=== PATIENT | female | born 1945 | race Caucasian/White ===

== ENCOUNTER 2016-11-14 10:46 | Inpatient (IN) ==
[2016-11-14] MEDS ORDERED: 0.9 % SODIUM CHLORIDE 1,000 ML IV ONE ×2 (10:59→12:29)
--- NOTE | 2016-11-14 11:28 | Emergency Department Note ---
Nausea/Vomiting/Diarrhea HPI - General Chief complaint: Nausea/Vomiting/Diarrhea Stated complaint: Vomiting, diarrhea Time Seen by Provider: 11/14/16 11:09 Source: patient Mode of arrival: wheelchair Limitations: no limitations - History of Present Illness HPI Narrative: This patient has had nausea vomiting and diarrhea for last 9 days. No abdominal pain. Diarrhea is watery without blood or mucus. She does feel thirsty and dehydrated and feels like she is getting confused because of dehydration. MD complaint: nausea, vomiting, diarrhea Onset (ago): day(s) Description of Vomiting: watery Description of Diarrhea: water Associated Abdominal Pain: No Improves with: none Worsens with: none - Related Data Home Medications Medication Instructions Recorded Confirmed Atorvastatin [Lipitor] 40 mg PO ONCE 11/14/16 11/14/16 Cholecalciferol (Vitamin D3) 2,000 unit PO DAILY 11/14/16 11/14/16 [Vitamin D] Docusate Sodium [Stool Softener] 500 mg PO DAILY 11/14/16 11/14/16 Gabapentin [Neurontin] 300 mg PO DAILY 11/14/16 11/14/16 Hydrochlorothiazide [Oretic] 12.5 mg PO DAILY 11/14/16 11/14/16 Lisinopril [Zestril] 10 mg PO DAILY 11/14/16 11/14/16 Magnesium Oxide [Magnesium] 400 mg PO DAILY 11/14/16 11/14/16 Metoprolol Succinate [Toprol Xl] 12.5 mg PO DAILY 11/14/16 11/14/16 Vitamin B Complex [Ultra B-100 1 each PO DAILY 11/14/16 11/14/16 Complex] buPROPion HCL [Wellbutrin Xl] 150 mg PO DAILY 11/14/16 11/14/16 metFORMIN HCL [Glucophage] 500 mg PO BID 11/14/16 11/14/16 Allergies Allergy/AdvReac Type Severity Reaction Status Date / Time No Known Drug Allergies Allergy Unverified 11/14/16 10:54 Review of Systems Constitutional: Denies: fever, chills ENT ED: Denies: ear pain Cardiovascular: Denies: chest pain Respiratory: Denies: cough, dyspnea Gastrointestinal: Reports: nausea, vomiting, diarrhea. Denies: abdominal pain, constipation, hematemesis, melena, hematochezia Genitourinary: Denies: urgency Musculoskeletal: Denies: back pain Integumentary: Denies: rash Neurological: Denies: headache Past Medical History - Past Medical History Medical history: Reports: diabetes, hyperlipidemia, hypertension Surgical history ED: Reports: hysterectomy Physical Exam - General Limitations: no limitations General appearance: alert - Head Head exam: atraumatic - Eye Eye exam: Present: normal appearance - ENT ENT exam: mucous membranes dry - Neck Neck exam: Present: normal inspection - Chest Chest inspection: Present: normal inspection - Respiratory Respiratory exam: Present: normal lung sounds bilaterally. Absent: respiratory distress, wheezes - Cardiovascular Cardiovascular exam: Present: regular rate, normal rhythm, normal heart sounds - Abdominal Exam Abdominal exam: Present: soft. Absent: distention, tenderness - Neurological Exam Neurological exam: Present: alert, oriented X3 - Psychiatric Psychiatric exam: Present: normal affect, normal mood - Skin Skin exam: Present: warm, dry, intact Course Vital Signs Temperature 97.6 F 11/14/16 10:47 Pulse Rate 90 11/14/16 10:47 Respiratory Rate 18 11/14/16 10:47 Blood Pressure 160/83 11/14/16 10:47 Pulse Oximetry (%) 94 11/14/16 10:47 Temperature 97.6 F 11/14/16 10:47 Pulse Rate 79 11/14/16 17:10 Respiratory Rate 11 L 11/14/16 17:10 Blood Pressure 143/88 11/14/16 17:10 Pulse Oximetry (%) 96 11/14/16 17:10 Nausea/Vomiting/Diarrhea - [facility] Narrative Medical decision making narrative: This patient was unable to give stool sample. She continues to be confused in the ER. She does have a urinary tract infection and has had gastroenteritis with dehydration. She'll be admitted observation to the hospital for UTI confusion and dehydration. - Lab Data Lab results reviewed: Yes I reviewed the patient's lab results. Result diagrams: 11/14/16 11:03 11/14/16 11:02 Lab Results 11/14/16 11/14/16 11/14/16 Range/Units 11:02 11:03 11:03 WBC 9.5 (4.5-11.0) K/mcL RBC 5.91 H (4.00-5.20) M/mcL Hgb 16.4 H (12.0-15.0) g/dL Hct 50.7 H (36.0-48.0) % MCV 85.6 (80.0-100.0) fL MCH 27.7 (26.0-34.0) pg MCHC 32.3 (31.0-36.0) g/dL RDW 15.9 H (11.5-14.5) % Plt Count 343 (140-440) K/mcL MPV 9.1 (7.4-10.4) fL Total Counted 100 Seg Neutrophils % 54 (38-78) % Band Neutrophils % 1 (0-10) % Lymphocytes % 29 (15-49) % Monocytes % (Manual) 13 H (1-9) % Eosinophils % (Manual) 2 (0-7) % Reactive Lymphocytes 1 (0-2) % Platelet Estimate Normal (NORMAL) RBC Morphology Normal (NORMAL) VBG Lactic Acid 1.5 (0.5-2.2) mmol/L Sodium 137 (133-145) mmol/L Potassium 4.8 (3.3-5.1) mmol/L Chloride 100 (96-108) mmol/L Carbon Dioxide 16 L (22-30) mmol/L Anion Gap 21.0 H (8-16) BUN 36 H (8-23) mg/dl Creatinine 1.1 (0.6-1.1) mg/dl GFR Calculation 51 Glucose 131 H (70-105) mg/dL Calcium 9.7 (8.6-10.4) mg/dl Total Bilirubin 0.2 (0.0-1.0) mg/dL AST 20 (0-37) U/l ALT 18 (0-40) U/l Alkaline Phosphatase 89 (39-117) U/L Total Protein 7.4 (5.9-8.4) gm/dL Albumin 3.7 (3.2-5.2) gm/dL Globulin 3.7 (2.2-3.7) gm/dL Albumin/Globulin Ratio 1.0 (1.0-2.3) Urine Color Urine Appearance Urine pH (5.0-9.0) Ur Specific [place] (1.000-1.035) Urine Protein (NEG) mg/dL Urine Glucose (UA) (NEG) mg/dL Urine Ketones (NEG) mg/dL Urine Occult Blood (<0.03) mg/dL Urine Nitrate (NEG) Urine Bilirubin (NEG) mg/dL Urine Urobilinogen (NEG) mg/dL Ur Leukocyte Esterase (NEG) /uL Urine RBC (0-1) /hpf Urine WBC (0-4) /hpf Ur Squamous Epith Cells (0-4) /hpf Uric Acid Crystals (0) /hpf Urine Bacteria (0) /hpf Hyaline Casts (0-2) /lpf Urine Mucus (0) /hpf Ur Culture Indicated? 11/14/16 Range/Units 12:14 WBC (4.5-11.0) K/mcL RBC (4.00-5.20) M/mcL Hgb (12.0-15.0) g/dL Hct (36.0-48.0) % MCV (80.0-100.0) fL MCH (26.0-34.0) pg MCHC (31.0-36.0) g/dL RDW (11.5-14.5) % Plt Count (140-440) K/mcL MPV (7.4-10.4) fL Total Counted Seg Neutrophils % (38-78) % Band Neutrophils % (0-10) % Lymphocytes % (15-49) % Monocytes % (Manual) (1-9) % Eosinophils % (Manual) (0-7) % Reactive Lymphocytes (0-2) % Platelet Estimate (NORMAL) RBC Morphology (NORMAL) VBG Lactic Acid (0.5-2.2) mmol/L Sodium (133-145) mmol/L Potassium (3.3-5.1) mmol/L Chloride (96-108) mmol/L Carbon Dioxide (22-30) mmol/L Anion Gap (8-16) BUN (8-23) mg/dl Creatinine (0.6-1.1) mg/dl GFR Calculation Glucose (70-105) mg/dL Calcium (8.6-10.4) mg/dl Total Bilirubin (0.0-1.0) mg/dL AST (0-37) U/l ALT (0-40) U/l Alkaline Phosphatase (39-117) U/L Total Protein (5.9-8.4) gm/dL Albumin (3.2-5.2) gm/dL Globulin (2.2-3.7) gm/dL Albumin/Globulin Ratio (1.0-2.3) Urine Color Yellow Urine Appearance Hazy Urine pH 5.0 (5.0-9.0) Ur Specific [place] 1.021 (1.000-1.035) Urine Protein Neg (NEG) mg/dL Urine Glucose (UA) Negative (NEG) mg/dL Urine Ketones 5/tr A (NEG) mg/dL Urine Occult Blood 0.2 A (<0.03) mg/dL Urine Nitrate Neg (NEG) Urine Bilirubin Neg (NEG) mg/dL Urine Urobilinogen Neg (NEG) mg/dL Ur Leukocyte Esterase 250 A (NEG) /uL Urine RBC 6 H (0-1) /hpf Urine WBC 10 H (0-4) /hpf Ur Squamous Epith Cells 2 (0-4) /hpf Uric Acid Crystals Few A (0) /hpf Urine Bacteria 0 (0) /hpf Hyaline Casts 22 H (0-2) /lpf Urine Mucus Mod (0) /hpf Ur Culture Indicated? Yes - Radiology Data Radiology results reviewed: Yes I reviewed the patient's radiology results. ( head CT was negative) Disposition Clinical Impression: Gastroenteritis, Urinary tract infection Disposition: Xfer As Outpt/Obs ([facility]) Condition: Good Instructions: Gastroenteritis (ED), Urinary Tract Infection in Women (ED) Referrals: Tiffani Garcia MD [Primary Care Provider] - Time of Disposition: 17:41
[2016-11-14 11:37] LABS: Mean Cell Volume 85.6 fL (80.0-100.0); Mean Corpuscular HGB Conc 32.3 g/dL (31.0-36.0); Mean Corpuscular Hemoglobin 27.7 pg (26.0-34.0); Platelet Count 343 K/mcL (140-440); RBC 5.91 M/mcL (4.00-5.20); Red Cell Distribution Width 15.9 % (11.5-14.5)
[2016-11-14 12:00] LABS: Band Neutrophils % 1 % (0-10); Eosinophils % (Manual) 2 % (0-7); Lymphocytes % 29 % (15-49); Monocytes % (Manual) 13 % (1-9); Platelet Estimate NORMAL (NORMAL); RBC Morphology NORMAL (NORMAL); Segmented Neutrophils % 54 % (38-78)
[2016-11-14 12:13] LABS: ALT/SGPT 18 U/l (0-40); Albumin 3.7 gm/dL (3.2-5.2); Alkaline Phosphatase 89 U/L (39-117); Blood Urea Nitrogen 36 mg/dl (8-23)
[2016-11-14 13:20] LABS: Appearance,Urine HAZY; Bacteria,Urine 0 /hpf (0); Bilirubin,Urine NEG (NEG); Color,Urine YELLOW; Glucose,Urine (UA) NEGATIVE (NEG); Leukocyte Esterase,Urine 250 /uL (NEG); Mucus,Urine MOD /hpf (0); Nitrate,Urine NEG (NEG); Protein,Urine NEG (NEG); Specific Gravity,Urine 1.021 (1.000-1.035); Uric Acid Crystals,Urine FEW /hpf (0); Urine Blood 0.2 mg/dL (<0.03); Urine Hyaline Cast 22 /lpf (0-2); Urine RBC 6 /hpf (0-1); Urine Squamous Epithelial Cell 2 /hpf (0-4); Urine WBC 10 /hpf (0-4); Urobilinogen,Urine NEG (NEG)
[2016-11-14] MEDS ORDERED: HYDROmorphone 2 MG/ML SYRINGE IV PRN (13:42)
[2016-11-14] MEDS ORDERED: LEVOFLOXACIN 500 MG/100 ML BAG IV ONE (15:11)
--- NOTE | 2016-11-14 16:54 | Cat Scan Report ---
CLINICAL INFORMATION: Disorientation. Confusion. COMPARISON: None. TECHNIQUE: Axial noncontrast-enhanced images through the brain. FINDINGS: No acute intracranial hemorrhage. No subdural or epidural hematoma. No subarachnoid hemorrhage. No intra-axial hemorrhage. No focal attenuation abnormalities or localized mass effect. No midline shift. Brain volume is normal for age. Brainstem and cerebellum are negative. Basilar cisterns are normal No calvarial fracture. Skull base is negative IMPRESSION: Negative noncontrast enhanced brain CT scan Interpreted and Authenticated by: Hossein Nickerson 11/14/16
--- NOTE | 2016-11-14 18:10 | XRay Report ---
CLINICAL INFORMATION: Cough TECHNIQUE: Upright PA and lateral chest x-ray COMPARISON: None. FINDINGS: Lungs are negative. No pulmonary parenchymal infiltrate or mass. Heart size and vascularity are normal. Glenda and mediastinum are negative. No pleural fluid. IMPRESSION: Negative PA and lateral chest x-ray Interpreted and Authenticated by: Hossein Nickerson 11/14/16
[2016-11-14] MEDS ORDERED: POTASSIUM CHLORIDE 20 MEQ PACKET PO PRN (19:07)
[2016-11-14] MEDS ORDERED: ACETAMINOPHEN 1,000 MG/100 ML BOTTLE IV PRN (19:07)
[2016-11-14] MEDS ORDERED: MAGNESIUM SULFATE 2 GM/50 ML BAG IV PRN (19:07)
[2016-11-14] MEDS ORDERED: ONDANSETRON 4 MG/2 ML VIAL IV PRN (19:07)
[2016-11-14] MEDS ORDERED: ACETAMINOPHEN 325 MG TABLET PO PRN (19:07)
[2016-11-14] MEDS ORDERED: DEXTROSE 50% 50 ML VIAL IV PRN (19:07)
[2016-11-14] MEDS: LACTATED RINGERS 1,000 ML IV SCH (19:51)
[2016-11-14] MEDS: INSULIN LISPRO 1 UNIT/0.01 ML UNIT SQ SCH (19:51)
[2016-11-14] MEDS ORDERED: GENTAMICIN SULFATE 80 MG/2 ML VIAL ONE (19:59)
[2016-11-14 20:07] LABS: C-Reactive Protein 0.7 mg/dl (0.0-0.8)
[2016-11-14] MEDS: ATORVASTATIN 20 MG TABLET PO SCH ×2 (20:13→21:13)
[2016-11-14] MEDS: SENNOSIDES/DOCUSATE SODIUM 1 TAB TABLET PO SCH ×2 (20:13→21:13)
[2016-11-14] MEDS: traZODone HCL 50 MG TABLET PO PRN ×2 (20:13→20:27)
[2016-11-14] MEDS: DOCUSATE SODIUM 100 MG CAPSULE PO SCH ×2 (20:13→21:13)
[2016-11-14] MEDS: HEPARIN 5,000 UNIT/ML VIAL SQ SCH ×2 (20:14→21:13)
[2016-11-14] MEDS ORDERED: GENTAMICIN SULFATE IV SCH (21:00)
[2016-11-14] MEDS ORDERED: SODIUM CHLORIDE 0.9% IV SCH (21:00)
[2016-11-14] MEDS: cefTRIAXone 2 GM in DEXTROSE 5% IN WATER 50 ML IV SCH (23:30)
[2016-11-14] MEDS: 0.9 % SODIUM CHLORIDE 10 ML SYRINGE IV SCH (23:30)
[2016-11-15 06:10] LABS: Mean Cell Volume 86.9 fL (80.0-100.0); Mean Corpuscular HGB Conc 32.2 g/dL (31.0-36.0); Platelet Count 286 K/mcL (140-440); RBC 4.76 M/mcL (4.00-5.20); Red Cell Distribution Width 15.7 % (11.5-14.5)
[2016-11-15 07:01] LABS: ALT/SGPT 13 U/l (0-40); Albumin 2.8 gm/dL (3.2-5.2); Alkaline Phosphatase 64 U/L (39-117); Bilirubin,Direct < 0.2 mg/dL (0.0-0.3); Blood Urea Nitrogen 18 mg/dl (8-23); Gamma Glutamyl Transpeptidase 15 U/L (5-36); Magnesium 1.8 mg/dL (1.6-2.5); Phosphorous 2.1 mg/dL (2.7-4.5); Uric Acid 7.1 mg/dL (2.5-8.0)
[2016-11-15] MEDS: 0.9 % SODIUM CHLORIDE 10 ML SYRINGE IV SCH ×3 (07:42→21:29)
[2016-11-15] MEDS: INSULIN LISPRO 1 UNIT/0.01 ML UNIT SQ SCH ×4 (07:44→21:28)
[2016-11-15] MEDS: LACTATED RINGERS 1,000 ML IV SCH ×3 (07:48→19:06)
[2016-11-15 08:03] LABS: Band Neutrophils % 1 % (0-10); Eosinophils % (Manual) 2 % (0-7); Lymphocytes % 28 % (15-49); Monocytes % (Manual) 10 % (1-9); Platelet Estimate NORMAL (NORMAL); RBC Morphology NORMAL (NORMAL); Segmented Neutrophils % 59 % (38-78)
--- NOTE | 2016-11-15 08:56 | History and Physical Report ---
DATE OF ADMISSION: 11/14/2016 PRIMARY CARE PHYSICIAN: Tiffani Garcia DO REASON FOR ADMISSION: Nausea, vomiting, diarrhea, weakness. HISTORY OF CHIEF COMPLAINT: The patient is a 71-year-old who comes in with roughly 8 to 9 days onset nausea and vomiting along with progressive watery diarrhea that has failed to improve over the few days. Patient has become increasingly weak, fatigued and lethargic. The patient denies abdominal pain and bloody stool. She has noticed roughly 2 to 3 stools every 6 hours. She denies recent sick contacts or having prior similar events. She also endorses to abdominal and lower extremity cramps. Initial workup in the ER was significant for severe volume depletion with a BUN around 40, creatinine 1.1; however, no stool sample could be obtained in the ER. C. diff is pending. Hospitalist Service was consulted in light of severe volume depletion, mental status change, persistent diarrhea. At the time of examination, the patient is alert. She was able to answer most of the questions. She denies recent antibiotic use. She denies prior history of C. diff, chronic diarrhea, alternating bowel movements. She further denies change in stool caliber, weight loss, glandular swelling, joint swelling, or rash. REVIEW OF SYSTEMS: Ten-point review of system was performed and negative except the ones discussed above. PAST MEDICAL HISTORY: 1. Anxiety disorder. 2. Diabetes mellitus type 2. 3. Hypertension. 4. Neuropathy. 5. Hyperlipidemia. CURRENT MEDICATIONS: 1. Magnesium oxide 400 mg. 2. Lipitor 40 mg. 3. Hydrochlorothiazide 12.5 mg. 4. Metoprolol 12.5 mg. 5. Bupropion 150 mg. 6. Gabapentin 300 mg. 7. Lisinopril 10 mg. 8. Metformin 500 mg b.i.d. SOCIAL HISTORY: She lives in the [place]. FULL CODE STATUS. She sees primary care physician, Tiffani Garcia DO, No history of smoking or alcoholism or substance abuse. FAMILY HISTORY: Noncontributory to presenting symptoms. PHYSICAL EXAMINATION: GENERAL: The patient is lethargic, fatigued. BMI 29.9. Height 5 feet 4 inches. VITAL SIGNS: Blood pressure 154/74, respiration rate 11, temperature 97.5, pulse 78, sats 94% on room air. HEENT: Pupils symmetric. Oral cavity is dry. No ear or nose discharge. Head is normocephalic and atraumatic. NECK: No lymphadenopathy. HEART: S1, S2, irregular rhythm. No murmur. CHEST: Clear to auscultation. ABDOMEN: Soft, no significant tenderness, generalized ache. LOWER EXTREMITIES: No cyanosis or clubbing. No joint swelling. SKIN: No suspicious lesions. PSYCHIATRIC: Alert and cooperative. No anxiety, fatigued and lethargic. LABS AND IMAGING: White count 9.5, hemoglobin 16.4, platelets 343, lactic acid 1.5. Sodium 137, potassium 4.8, creatinine 1.1, BUN 36, anion gap 21. LFTs unremarkable. UA: 10 WBCs. ASSESSMENT AND PLAN: A 71-year-old admitted with intractable diarrhea along with UTI, volume depletion and mild acute kidney injury. 1. Intractable diarrhea, rule out C. diff. Check norovirus. Continue crystalloids, hydration and symptomatic supportive management. 2. Volume depletion. Continue crystalloids and monitor renal function. 3. Mild acute kidney injury secondary to above. Continue monitoring renal function. 4. Mild UTI. Continue Rocephin, await cultures and deescalate based on sensitivities. 5. Prior medical issues including: a. History of diabetes mellitus type 2. Continue prandial insulin and sitagliptin. b. Anxiety disorder. Continue bupropion. c. Neuropathy. Continue gabapentin. d. Hypertension. Hold lisinopril until renal function improves. e. Hyperlipidemia. Continue statin. PLAN FOR TODAY: 1. Admit as inpatient in light of renal insufficiency, intractable diarrhea, complicated UTI and mental status change. 2. Preexisting medical condition management as above. 3. Supportive management. [email or web address] Job ID: [id number] Doc ID: [id number] Edgardo Garcia DO
--- NOTE | 2016-11-15 09:43 | Internal Med Progress Note ---
Medical - PN: Subj Patient information: Note initiated : 11/15/16 at 9:41 am Service Date, if different from initiated Date: [] Patient: Felicia Grewal 71 y/o F admitted on 11/14/16 for Vomiting/ Intractable Diarrhea,UTI,Volume Depletion. Chief Complaint: [] Interval history: 11/14-patient admitted with complicated UTI,severe diarrhea and nausea vomiting volume depletion in mental status change. Creatinine 1.1. BUN 36. On aggressive crystalloids. Awaiting stool studies. Continue supportive management. Monitor renal function. Admitted as inpatient. On antibiotic coverage 11/15-much improved mental status. uremia improved. No significant nausea vomiting or diarrhea. afebrile with stable hemodynamics. creatinine 0.8. continue antibiotic coverage for UTI. negative cultures - Constitutional Vitals: Vital Signs Temp Pulse Resp BP Pulse Ox 97.5 F L 92 H 20 128/73 96 11/15/16 07:14 11/15/16 07:46 11/15/16 07:14 11/15/16 07:14 11/15/16 07:46 Period Temp Pulse Resp BP Sys/[place] Pulse Ox Last 24 Hr 97.5 F-98.3 F 72-92 12-20 128-159/67-79 94-97 Intake and Output 11/14/16 11/15/16 11/15/16 21:59 05:59 13:59 Intake Total 253.75 / 353.75 1410 / 1410 Output Total 50 / 50 275 / 275 200 / 200 Balance 203.75 / 303.75 1135 / 1135 -200 / -200 Weight 174 lb Intake & Output: Intake & Output 11/14/16 11/15/16 11/15/16 21:59 05:59 13:59 Intake Total 253.75 / 353.75 1410 / 1410 Output Total 50 / 50 275 / 275 200 / 200 Balance 203.75 / 303.75 1135 / 1135 -200 / -200 Weight 174 lb Intake: IV 253.75 / 253.75 1050 / 1050 Gentamicin Sulfate 150 mg 253.75 / 253.75 In Sodium Chloride 0.9% 250 ml @ 250 mls/hr IV ONCE [facility] Rx#:[id number] Lactated Ringers 1,000 ml 1000 / 1000 @ 100 mls/hr IV .Q10H [facility] Rx#:[id number] Rocephin 2 gm In Dextrose 50 / 50 5% in Water 50 ml @ 100 mls/hr IV DAILY [facility] Rx#: [id number] Oral 360 / 360 Output: Void Amount 50 / 50 275 / 275 200 / 200 Other: Meal Breakfast Percent of Meal Consumed 100% # Voids 1 General appearance: cooperative, no acute distress Exam: alert oriented nonlabored breathing Nondistended abdomen No anxiety No pallor lymphedema Medical - PN: Obj Da - Labs CBC & Chem 7: 11/15/16 05:03 11/15/16 05:03 Labs: Abnormal Lab Results 11/15/16 11/15/16 11/14/16 05:03 05:03 19:15 RDW 15.7 H Monocytes % (Manual) 10 H ESR 57 H Carbon Dioxide 18 L Calcium 8.2 L Phosphorus 2.1 L Total Protein 5.6 L Albumin 2.8 L Meds: Medications Acetaminophen (Tylenol) 650 mg PO Q4-6HP PRN PRN Reason: PAIN/FEVER > 101 Atorvastatin Calcium (Lipitor) 40 mg PO HS [facility] Last Admin: 11/14/16 21:13 Dose: Not Given Bupropion HCl (Wellbutrin Xl) 150 mg PO DAILY [facility] Dextrose (Dextrose 50%) 0 ml IV UD PRN PRN Reason: Hypoglycemia Diagnostic Test (Pha) (Accu-Chek) 1 each FS ACHS [facility] Last Admin: 11/15/16 07:44 Dose: 1 each Docusate Sodium (Colace) 100 mg PO BID [facility] Last Admin: 11/14/16 21:13 Dose: Not Given Gabapentin (Neurontin) 300 mg PO DAILY [facility] Heparin Sodium (Porcine) (Heparin) 5,000 unit SQ Q12 [facility] Last Admin: 11/14/16 21:13 Dose: Not Given Lactated Ringer's (Lactated Ringers) 1,000 mls @ 100 mls/hr IV .Q10H [facility] Stop: 11/16/16 01:06 Last Admin: 11/15/16 07:48 Dose: 100 mls/hr Magnesium Sulfate (Magnesium Sulfate) 2 gm in 50 mls @ 50 mls/hr IV UD PRN PRN Reason: MG = or < 1.7 Acetaminophen (Ofirmev) 1,000 mg in 100 mls @ 200 mls/hr IV Q6HP PRN PRN Reason: PAIN/FEVER > 101 Ceftriaxone Sodium 2 gm/ (Dextrose) 50 mls @ 100 mls/hr IV DAILY [facility] Last Infusion: 11/15/16 00:00 Dose: Infused Insulin Human Lispro (Humalog) 0 unit SQ ACHS [facility] PRN Reason: Protocol Last Admin: 11/15/16 07:44 Dose: Not Given Magnesium Oxide (Magnesium Oxide) 400 mg PO DAILY [facility] Metoprolol Succinate (Toprol Xl) 12.5 mg PO DAILY [facility] Ondansetron HCl (Zofran) 4 mg IV Q4-6HP PRN PRN Reason: Nausea And Vomiting Potassium Chloride (Klor-Con) 40 meq PO DAILYP PRN PRN Reason: K+ < 3.5 Senna/Docusate Sodium (Senna Plus Tablet) 1 tab PO HS [facility] Last Admin: 11/14/16 21:13 Dose: Not Given Sitagliptin Phosphate (Januvia) 50 mg PO DAILY [facility] Sodium Chloride (Saline Flush) 10 ml IV Q8 [facility] Last Admin: 11/15/16 07:42 Dose: Not Given Trazodone HCl (Desyrel) 50 mg PO HSP PRN PRN Reason: Insomnia Last Admin: 11/14/16 20:27 Dose: 50 mg Medical - PN: A/P - Time Spent With Patient Total time spent is greater than 50% in coordination of care (as documented) at patient's floor/unit and/or counseling patient: 15 - 24 minutes (1) Diarrhea in adult patient Status: Acute Assessment and plan: * acute gastroenteritis-likely infectious. Clinically improving.continue supportive management * Diarrhea-clinically improving * Mild PERLA secondary to volume depletion-creatinine normalized with aggressive crystalloids * volume depletion resolved with fluids * Mental status change clinically improved * on prandial insulin * Anxiety disorder on bupropion * hyperlipidemia on statin * History of hypertension-restart home meds once systolics over 140 * prophylaxis heparin Plan * Continue crystalloids and supportive management * Monitor renal function * pre-existing medical condition management as above * PT OT * possible discharge in 24 hours Current Visit: Yes Medical - PN: Qual - VTE Deep Vein Thrombosis/Pulmonary Embolism Present on Admission: No
[2016-11-15] MEDS: GABAPENTIN 300 MG CAPSULE PO SCH (09:44)
[2016-11-15] MEDS: buPROPion 150 MG TAB.XL.24H PO SCH (09:44)
[2016-11-15] MEDS: HEPARIN 5,000 UNIT/ML VIAL SQ SCH ×2 (09:44→21:18)
[2016-11-15] MEDS: METOPROLOL SUCCINATE 25 MG TAB.XL.24H PO SCH (09:44)
[2016-11-15] MEDS: MAGNESIUM OXIDE 400 MG TABLET PO SCH (09:44)
[2016-11-15] MEDS: sitaGLIPtin 50 MG TABLET PO SCH (09:44)
[2016-11-15] MEDS: DOCUSATE SODIUM 100 MG CAPSULE PO SCH ×2 (09:49→21:17)
[2016-11-15] MEDS: cefTRIAXone 2 GM in DEXTROSE 5% IN WATER 50 ML IV SCH (13:47)
[2016-11-15] MEDS: ATORVASTATIN 20 MG TABLET PO SCH (21:17)
[2016-11-15] MEDS: SENNOSIDES/DOCUSATE SODIUM 1 TAB TABLET PO SCH (21:17)
[2016-11-16] MEDS: 0.9 % SODIUM CHLORIDE 10 ML SYRINGE IV SCH (04:46)
[2016-11-16 05:39] LABS: Mean Corpuscular HGB Conc 32.1 g/dL (31.0-36.0); Platelet Count 303 K/mcL (140-440); RBC 4.52 M/mcL (4.00-5.20); Red Cell Distribution Width 15.9 % (11.5-14.5)
[2016-11-16 06:27] LABS: ALT/SGPT 12 U/l (0-40); Albumin/Globulin Ratio 1.3 (1.0-2.3); Alkaline Phosphatase 66 U/L (39-117); Bilirubin,Direct < 0.2 mg/dL (0.0-0.3); Blood Urea Nitrogen 15 mg/dl (8-23); Gamma Glutamyl Transpeptidase 13 U/L (5-36); Magnesium 1.8 mg/dL (1.6-2.5); Phosphorous 2.7 mg/dL (2.7-4.5); Uric Acid 6.7 mg/dL (2.5-8.0)
[2016-11-16 07:08] LABS: Anisocytosis 1+ (NONE SEEN); Eosinophils % (Manual) 1 % (0-7); Lymphocytes % 25 % (15-49); Monocytes % (Manual) 15 % (1-9); Platelet Estimate NORMAL (NORMAL); RBC Morphology ABNORM (NORMAL); Segmented Neutrophils % 59 % (38-78)
[2016-11-16] MEDS: INSULIN LISPRO 1 UNIT/0.01 ML UNIT SQ SCH ×2 (07:32→12:05)
[2016-11-16] MEDS: sitaGLIPtin 50 MG TABLET PO SCH (08:46)
[2016-11-16] MEDS: HEPARIN 5,000 UNIT/ML VIAL SQ SCH (08:46)
[2016-11-16] MEDS: buPROPion 150 MG TAB.XL.24H PO SCH (08:46)
[2016-11-16] MEDS: DOCUSATE SODIUM 100 MG CAPSULE PO SCH (08:47)
[2016-11-16] MEDS: METOPROLOL SUCCINATE 25 MG TAB.XL.24H PO SCH (08:47)
[2016-11-16] MEDS: MAGNESIUM OXIDE 400 MG TABLET PO SCH (08:47)
[2016-11-16] MEDS: GABAPENTIN 300 MG CAPSULE PO SCH (08:47)
[2016-11-16] MEDS: cefTRIAXone 2 GM in DEXTROSE 5% IN WATER 50 ML IV SCH (09:30)
--- NOTE | 2016-11-16 11:58 | Discharge Summary ---
Medical - DS: Prov Patient information: Note initiated : 11/16/16 at 11:56 am Service Date, if different from initiated Date: [] Patient: Felicia Grewal 71 y/o F admitted on 11/14/16 for Vomiting/ Intractable Diarrhea,UTI,Volume Depletion. Chief Complaint: [] Date of admission: 11/14/16 19:04 Discharge date: 11/16/16 Primary care physician: [f_Reg Prim Care Provider] Medical - DS: Meds - Discharge Medications Prescriptions: Amoxicillin/Potassium Clav [Augmentin] 875 mg PO Q12H #4 tablet Active and Home Medications: Home Medications Atorvastatin [Lipitor] 40 mg PO ONCE 11/14/16 [History Confirmed 11/14/16 Last Taken 11/12/16 21:00] Cholecalciferol (Vitamin D3) [Vitamin D3] 2,000 unit PO DAILY 11/14/16 [History Confirmed 11/14/16 Last Taken 11/12/16 08:00] Docusate Sodium [Stool Softener] 500 mg PO DAILY 11/14/16 [History Confirmed Last Taken 11/12/16 21:00] Gabapentin [Neurontin] 300 mg PO DAILY 11/14/16 [History Confirmed 11/14/16 Last Taken 11/12/16 21:00] Hydrochlorothiazide [Oretic] 12.5 mg PO DAILY 11/14/16 [History Confirmed Last Taken 11/12/16 08:00] Lisinopril [Zestril] 10 mg PO DAILY 11/14/16 [History Confirmed 11/14/16 Last Taken 11/12/16 08:00] Magnesium Oxide [Magnesium] 400 mg PO DAILY 11/14/16 [History Confirmed Last Taken 11/12/16 08:00] Metoprolol Succinate [Toprol Xl] 12.5 mg PO DAILY 11/14/16 [History Confirmed Last Taken 11/12/16 08:00] Vitamin B Complex [Ultra B-100 Complex] 1 each PO DAILY 11/14/16 [History Confirmed 11/14/16 Last Taken 11/12/16 08:00] buPROPion HCL [Wellbutrin Xl] 150 mg PO DAILY 11/14/16 [History Confirmed Last Taken 11/12/16 08:00] metFORMIN HCL [Glucophage] 500 mg PO BID 11/14/16 [History Confirmed 11/14/16 Last Taken 11/12/16] Amoxicillin/Potassium Clav [Augmentin] 875 mg PO Q12H #4 tablet 11/16/16 [Rx Last Taken Unknown] Medical - DS: Hosp Hospital course: DISCHARGE DIAGNOSIS * acute gastroenteritis-likely infectious. clinically resolved. * Diarrhea-clinically resolved * Mild PERLA secondary to volume depletion-linically resolvedwith aggressive crystalloid. At baseline * volume depletion resolved with fluids * Mental status change clinically improved * DM type II on prandial insulin * Anxiety disorder on bupropion * Hyperlipidemia on statin * History of hypertension- continue home meds BRIEF HOSPITAL COURSE Mr. Grewal is a 71 year old patient admitted on 11/14 with complicated UTI, severe diarrhea and nausea vomiting volume depletion in mental status change. Creatinine 1.1. BUN 36. On aggressive crystalloids. Awaiting stool studies. Continue supportive management. Monitor renal function. Admitted as inpatient. On antibiotic coverage 11/15-much improved mental status. uremia improved. No significant nausea vomiting or diarrhea. afebrile with stable hemodynamics. creatinine 0.8. continue antibiotic coverage for UTI. negative cultures 11/16- patient feels back to baseline tolerating diet. No overnight nausea vomiting diarrhea. No abdominal pain. No fever chills concerns per staff. Ambulating tolerating physical therapy and requesting discharge. Recommend additional 2 days antibiotic to complete a five-day course for UTI. Also recommend follow-up with primary care physician and detailed discharge instructions as below Discharge diagnosis: . - Time Spent with Patient Total time spent providing and/or coordinating discharge services: Medical - DS: Exam - Constitutional Vitals: Vital Signs Temp Pulse Resp BP Pulse Ox 11/16/16 07:08 97.6 F 82 18 154/79 95 11/16/16 04:00 98.5 F 67 22 137/65 96 11/16/16 00:00 97.9 F 82 22 140/57 93 11/15/16 20:00 98.1 F 88 24 132/63 95 11/15/16 16:00 87 F L 87 20 158/84 95 11/15/16 12:00 97.8 F 80 20 125/75 94 Intake and Output 11/15/16 11/16/16 11/16/16 21:59 05:59 13:59 Intake Total 1050 / 1050 1317 / 1317 480 / 480 Output Total 225 / 225 300 / 300 Balance 825 / 825 1017 / 1017 480 / 480 Intake: IV 1050 / 1050 967 / 967 Lactated Ringers 1,000 ml 1000 / 1000 967 / 967 @ 100 mls/hr IV .Q10H BLAZE Rx#:[id number] Rocephin 2 gm In Dextrose 50 / 50 5% in Water 50 ml @ 100 mls/hr IV DAILY BLAZE Rx#: [id number] Oral 350 / 350 480 / 480 Output: Void Amount 225 / 225 300 / 300 Other: Meal Breakfast Percent of Meal Consumed 90 Feeding Ability Independent # Bowel Movements 1 1 Weight 173 lb Medical - DS: Data Labs on day of discharge: Labs from last 24 hours 11/16/16 11/16/16 03:27 03:27 WBC 8.6 RBC 4.52 Hgb 12.6 Hct 39.3 MCV 87.0 MCH 28.0 MCHC 32.1 RDW 15.9 H Plt Count 303 MPV 9.2 Total Counted 100 Seg Neutrophils % 59 Band Neutrophils % Not Reportable Lymphocytes % 25 Monocytes % (Manual) 15 H Eosinophils % (Manual) 1 Platelet Estimate Normal RBC Morphology Abnorm A Anisocytosis 1+ A Sodium 142 Potassium 4.1 Chloride 106 Carbon Dioxide 23 Anion Gap 13.0 BUN 15 Creatinine 0.8 GFR Calculation 75 Glucose 98 Uric Acid 6.7 Calcium 8.5 L Phosphorus 2.7 Magnesium 1.8 Total Bilirubin < 0.2 Direct Bilirubin < 0.2 GGT 13 AST 15 ALT 12 Alkaline Phosphatase 66 Lactate Dehydrogenase 212 Total Protein 5.4 L Albumin 3.0 L Globulin 2.4 Albumin/Globulin Ratio 1.3 Triglycerides 149 Medical - DS: A/P - Patient/Caregiver Discharge Instructions Activity: increase activity as tolerated Diet: Consistent Carbohydrate Additional Instructions: Follow-up PCP in 5 days I recommend primary care physician to check BMP UA as a posthospital follow-up in 1 week. Antibiotics for additional 2 days Augmentin Continue fall precautions All meals on chair sitting upright at 90 degrees to prevent aspiration Return to ER if worsening fever chills shortness of breath, diarrhea, bleeding Review risk and side effect profile of medications including antibiotics. Side effect may include mild to severe reaction including rash, diarrhea, cdiff and even which can be prevented by close follow-up with PCP and monitoring for side effects Continue diet and activity as advised Discussed importance of medication adherence Please review medication list with patient prior to discharge Please schedule follow-up with PCP/Providers prior to discharge and provide printouts CC- PCP Prescriptions: Amoxicillin/Potassium Clav [Augmentin] 875 mg PO Q12H #4 tablet - Follow up Plan Follow up with: Tiffani Garcia MD [Primary Care Provider] - Disposition: Home, Self-Care Prognosis: Good Rehab Potential: Good I certify that the patient requires SNF services: No Overall status at discharge: patient is progressing back to baseline Medical - DS: Qual - VTE Deep Vein Thrombosis/Pulmonary Embolism Present on Admission: No
== END 2016-11-16 10:50 | disposition home or self-care (01) | DRG 392 ==
LOC: ED 10:46 → MEDSUR 19:04
PROVIDERS: ADMIT Internal Medicine; ATTEND Internal Medicine

== ENCOUNTER 2022-09-02 22:21 | Inpatient (IN) ==
[2022-09-02] MEDS ORDERED: IOPAMIDOL 100 ML BOTTLE IV ONE (22:22)
[2022-09-02] MEDS ORDERED: 0.9 % SODIUM CHLORIDE 1,000 ML IV ONE (22:29)
[2022-09-02] MEDS ORDERED: KETOROLAC 30 MG/ML VIAL IV ONE (22:34)
[2022-09-02 22:55] LABS: POC Calcium, Ionized 1.03 (1.16-1.32); POC Creatinine 0.8 (0.6-1.2); POC Potassium 5.3 (3.3-5.1)
--- NOTE | 2022-09-02 23:03 | Emergency Department Note ---
SOB HPI General Chief Complaint: Shortness of Breath/Dyspnea Time Seen by Provider: 09/02/22 22:29 Source: patient, family and EMS Mode of arrival: EMS Limitations: altered mental status History of Present Illness HPI Narrative: Narrative: Patient arrives to the ED via EMS with at bedside with complaints of shortness of breath that is worse over the last 24 hours. Patient is confused. She can tell me her name and her date of and answer some questions but her answers are not fluid and sometimes incoherent. She herself denies nausea, vomiting, diarrhea, cardiac chest pain and shortness of breath. states that patient has been having some diarrhea for the past 2 days. He is also has shortness of breath. EMS states when they arrived she was satting less than 86% on room air and required 4 L of oxygen nasal cannula remained adequate ox saturation greater than 90%. states that they went to [facility] last night and patient was diagnosed with COVID. He states that they did not have any beds available so they discharged her home. states since being home patient has become more confused weaker. She has not been drinking much fluid or eating anything. states at home she had a fever of 103 tonight he did give her some Tylenol. Denies any other alleviating or aggravating factors. Related Data Home Medications Medication Instructions Recorded Confirmed atorvastatin 40 mg tablet 40 mg PO ONCE 11/14/16 01/29/22 bupropion HCl 150 mg 24 hr tablet, 150 mg PO DAILY 11/14/16 01/29/22 extended release (Wellbutrin XL) cholecalciferol (vitamin D3) 50 2,000 unit PO DAILY 11/14/16 01/29/22 mcg (2,000 unit) capsule (Vitamin D3) docusate sodium 250 mg capsule 500 mg PO DAILY 11/14/16 01/29/22 (Stool Softener) lisinopril 10 mg tablet (Zestril) 10 mg PO DAILY 11/14/16 01/29/22 magnesium oxide 400 mg PO DAILY 11/14/16 01/29/22 metformin 500 mg tablet 500 mg PO BID 11/14/16 01/29/22 (Glucophage) metoprolol succinate 25 mg 12.5 mg PO DAILY 11/14/16 01/29/22 tablet,extended release 24 hr vitamin B complex (Ultra B-100 1 ea PO DAILY 11/14/16 01/29/22 Complex tablet) calcium carbonate 600 mg calcium 600 mg PO QDAY 01/27/22 01/29/22 (1,500 mg) tablet (Calcium) carboxymethylcellulose sodium 0.5 1 drp ophthalmic (eye) BID 01/27/22 01/29/22 % eye drops in a dropperette clotrimazole 1 % topical cream 1 applic topical BID 01/27/22 01/29/22 colchicine 0.6 mg capsule 0.6 mg PO QDAY 01/27/22 01/29/22 docosahexaenoic acid (dha)-epa 120 1 cap PO QDAY 01/27/22 01/29/22 mg-180 mg capsule (Fish Oil) oxybutynin chloride 5 mg tablet 5 mg PO QDAY 01/27/22 01/29/22 terbinafine HCl 250 mg tablet 250 mg PO QDAY 01/27/22 01/29/22 Allergies Allergy/AdvReac Type Severity Reaction Status Date / Time [place] Allergy Verified 09/02/22 22:28 Review of Systems ROS ROS Narrative: Narrative: All systems ED: reviewed and negative except as stated. [facility] Narrative Patient History Narrative: Narrative: Medical/Surgical/Family History All Active Problems (Updated 09/03/22 @ 01:13 by Jeremy Pineda DO) Sepsis, viral (Acute) Pneumonia due to 2019-nCoV (Acute) Acute UTI (Acute) Acute respiratory failure with hypoxia (Acute) Metabolic encephalopathy (Acute) Gastroenteritis (Acute) Urinary tract infection (Acute) Diarrhea in adult patient (Acute) Medical History Diarrhea in adult patient Gastroenteritis Urinary tract infection Social History Smoking Status: Former smoker Exam Narrative Narrative: Narrative: General Limitations: altered mental status General appearance: Absent in distress Head Head: Present atraumatic and normocephalic Eye Eye: Present PERRL and EOMI ENT ENT: Present normal oropharynx and mucous membranes dry Neck Neck: Present normal inspection; Absent meningismus Respiratory Respiratory: Present respiratory distress and decreased breath sounds; Absent accessory muscle use Cardiovascular Cardiovascular: Present normal rhythm and tachycardia Adbominal Abdominal: Present soft; Absent tenderness Extremities Extremities: Present normal capillary refill Back Back: Absent CVA tenderness (R) or CVA tenderness (L) Neurological Neurological: Present alert Psychiatric Psychiatric: Present agitated and poor eye contact Skin Skin: Present warm (WNL) and intact Course Course Course Narrative: Patient was evaluated for shortness of breath. Patient was definitely altered upon arrival consistent with metabolic encephalopathy. She was hypoxic requiring 3 L of oxygen via nasal cannula. Lab showed that she had a normal white cell count and normal lactic acid. Her Pro-Dimitri was also normal. Patient was febrile upon arrival with a temperature of 100.9 and she was tachycardic with a heart rate of 99. EKG just shows sinus tachycardia. UA was dirty for UTI. Patient does meet sepsis criteria with tachycardia, fever and source of infection. CT of the chest was obtained to evaluate for pulmonary embolism was negative for PE but was consistent with COVID-pneumonia in the bilateral upper and lower lungs. Patient was given IV Rocephin and vancomycin after blood cul tures were obtained. She was also given IV Toradol for her fever which did improve. Recommend the patient be admitted to the hospitalist service. Case was discussed with hospitalist was agreed to admit the patient. Plan of care was discussed with patient's who expressed verbal understanding agreement of plan. Reevaluation(s) Reevaluation #1: Patient remains hemodynamically stable on supplemental oxygen nasal cannula. No new complaints at this time. I did receive documents from [facility] from patient's visit yesterday. has stated that they had no beds available for admission but according to [place]'s of record of a bed was offered to them for admission but they refused to be admitted. Patient did test positive for COVID there. She also had CT of the head at that time it was nega tive for any acute pathology. Time: 23:50 Consultations Consultation #1: Case discussed with hospitalist who has agreed to admit the patient. Time: :23 Vital Signs Vital signs: Vital Signs Temperature 100.4 F H 09/02/22 22:22 Pulse Rate 99 H 09/02/22 22:22 Respiratory Rate 20 09/02/22 22:22 Blood Pressure 175/62 09/02/22 22:22 Pulse Oximetry (%) 94 09/02/22 22:22 Oxygen Delivery Method 09/02/22 22:22 Oxygen Flow Rate (L/min) 3 09/02/22 22:22 Temperature 98.9 F 09/03/22 00:27 Pulse Rate 88 09/03/22 01:17 Respiratory Rate 17 09/03/22 01:17 Blood Pressure 146/49 09/03/22 01:17 Pulse Oximetry (%) 91 09/03/22 01:17 Oxygen Delivery Method 09/02/22 22:22 Oxygen Flow Rate (L/min) 3 09/02/22 22:22 MDM MDM Narrative Medical decision making narrative: Narrative: Sepsis Sepsis Identified: Yes Time Zero: 2344 Differential Diagnosis Differential Diagnosis: Metabolic encephalopathy, pneumonia, UTI, respiratory failure, COVID Medical Records Medical records reviewed: Yes I reviewed the patient's medical records. Lab Data Lab results reviewed: Yes I reviewed the patient's lab results. Result diagrams: 09/02/22 23:08 Labs: Lab Results 09/02/22 09/02/22 09/02/22 Range/Units 22:50 23:08 23:08 WBC 8.8 (4.5-11.0) K/mcL RBC 4.86 (3.59-5.38) M/mcL Hgb 14.4 (11.2-15.7) g/dL Hct 43.1 (34.1-44.9) % POC Hct 45.0 (36-48) MCV 88.7 (80.0-100.0) fL MCH 29.6 (26.0-34.0) pg MCHC 33.4 (31.0-36.0) g/dL RDW 14.9 H (11.5-14.5) % Plt Count 294 (140-440) K/mcL MPV 12.0 (8.8-12.5) fL Immature Gran % (Auto) 0.6 H (0.0-0.5) % Neut % (Auto) 72.3 (38.0-78.0) % Lymph % (Auto) 13.7 L (15.5-49.0) % Wirt % (Auto) 13.1 H (1.0-12.0) % Eos % (Auto) 0 (0.0-7.0) % Baso % (Auto) 0.3 (0.0-2.0) % Lymph # (Auto) 1.20 L (1.50-4.80) K/mcL Wirt # (Auto) 1.15 H (0.10-0.90) K/mcL Eos # (Auto) 0 (0.00-0.70) K/mcL Baso # (Auto) 0.03 (0.00-0.30) K/mcL Immature Gran # 0.05 (0.00-0.05) K/mcl Absolute Neutrophils 6.33 (1.80-8.00) K/mcL D-Dimer POC VBG pH (7.32-7.42) POC VBG pCO2 at Temp (41-51) POC VBG pO2 (25-40) POC VBG HCO3 (24-28) POC VBG Total CO2 (25-29) POC Venous O2 Sat (40-70) POC VBG Base Excess (-2-2) VBG Lactic Acid (0.5-2) POC Sodium 133 (133-145) POC Potassium 5.3 H (3.3-5.1) POC Chloride 99 (96-108) POC Total CO2 29.0 (22-30) POC BUN 21 H (6-20) POC Creatinine 0.8 (0.6-1.2) POC Glucose 119 H (70-105) POC WB Ioniz Calcium 1.03 L (1.16-1.32) Procalcitonin TNP Urine Color Urine Appearance (Clear) Urine pH (5.0-9.0) Ur Specific [place] (1.000-1.035) Urine Protein (Negative) mg/dL Urine Glucose (UA) (Negative) mg/dL Urine Ketones (Negative) mg/dL Urine Occult Blood (Negative) carol/mcL Urine Nitrate (Negative) Urine Bilirubin (Negative) mg/dL Urine Urobilinogen mg/dL Ur Leukocyte Esterase (Negative) /uL Urine RBC (0-3) /hpf Urine WBC (0-4) /hpf Ur Squamous Epith Cells (0-4) /hpf Urine Bacteria (0) /hpf Urine Mucus (None) /hpf Ur Culture Indicated? 09/02/22 09/02/22 09/02/22 Range/Units 23:10 23:15 23:30 WBC (4.5-11.0) K/mcL RBC (3.59-5.38) M/mcL Hgb (11.2-15.7) g/dL Hct (34.1-44.9) % POC Hct (36-48) MCV (80.0-100.0) fL MCH (26.0-34.0) pg MCHC (31.0-36.0) g/dL RDW (11.5-14.5) % Plt Count (140-440) K/mcL MPV (8.8-12.5) fL Immature Gran % (Auto) (0.0-0.5) % Neut % (Auto) (38.0-78.0) % Lymph % (Auto) (15.5-49.0) % Wirt % (Auto) (1.0-12.0) % Eos % (Auto) (0.0-7.0) % Baso % (Auto) (0.0-2.0) % Lymph # (Auto) (1.50-4.80) K/mcL Wirt # (Auto) (0.10-0.90) K/mcL Eos # (Auto) (0.00-0.70) K/mcL Baso # (Auto) (0.00-0.30) K/mcL Immature Gran # (0.00-0.05) K/mcl Absolute Neutrophils (1.80-8.00) K/mcL D-Dimer TNP POC VBG pH 7.44 H (7.32-7.42) POC VBG pCO2 at Temp 41.4 (41-51) POC VBG pO2 25 (25-40) POC VBG HCO3 28.2 H (24-28) POC VBG Total CO2 29.0 (25-29) POC Venous O2 Sat 49.0 (40-70) POC VBG Base Excess 4.0 H* (-2-2) VBG Lactic Acid 1.5 (0.5-2) POC Sodium (133-145) POC Potassium (3.3-5.1) POC Chloride (96-108) POC Total CO2 (22-30) POC BUN (6-20) POC Creatinine (0.6-1.2) POC Glucose (70-105) POC WB Ioniz Calcium (1.16-1.32) Procalcitonin Urine Color Lt. yellow Urine Appearance Clear (Clear) Urine pH 6.0 (5.0-9.0) Ur Specific [place] 1.025 (1.000-1.035) Urine Protein 100 A (Negative) mg/dL Urine Glucose (UA) Negative (Negative) mg/dL Urine Ketones Negative (Negative) mg/dL Urine Occult Blood Small A (Negative) carol/mcL Urine Nitrate Negative (Negative) Urine Bilirubin Negative (Negative) mg/dL Urine Urobilinogen Normal mg/dL Ur Leukocyte Esterase Negative (Negative) /uL Urine RBC 3 (0-3) /hpf Urine WBC 1 (0-4) /hpf Ur Squamous Epith Cells 0 (0-4) /hpf Urine Bacteria None (0) /hpf Urine Mucus Few A (None) /hpf Ur Culture Indicated? No Radiology Data Radiology results reviewed: Yes I reviewed the patient's radiology results. Radiology results narrative: CTA chest obtained with image reviewed myself negative for PE but consistent with bilateral upper and lower lobe pneumonia concerning for COVID-pneumonia EKG Data EKG #1: EKG attestation: Yes I reviewed and interpreted this EKG. EKG shows normal: sinus rhythm Rate: tachycardia Rhythm: NSR [place]/QRS: normal Heart block present: None ST segment elevation in: None ST segment depression in: None QTc: normal QRS morphology: Present normal Interpretation: no acute changes Core Measures AMI Core Measures Followed: Yes Discharge Plan Patient/Caregiver Discharge Instructions Pt seen by POSTING CLERK/PA only: No Clinical Impression: Sepsis, viral, Pneumonia due to 2019-nCoV, Acute UTI, Acute respiratory failure with hypoxia, Metabolic encephalopathy Patient Disposition: Xfer As Outpt/Obs ([facility]) Condition: Fair Follow up with: Gloria Dixon ARNP [Primary Care Provider] - Prescriptions: No Action oxybutynin chloride 5 mg tablet 5 mg PO QDAY carboxymethylcellulose sodium 0.5 % dropperette 1 drp ophthalmic (eye) BID Fish Oil 120-180 mg capsule 1 cap PO QDAY calcium carbonate [Calcium 600] 600 mg calcium (1,500 mg) tablet 600 mg PO QDAY clotrimazole 1 % cream 1 applic topical BID colchicine 0.6 mg capsule 0.6 mg PO QDAY terbinafine HCl 250 mg tablet 250 mg PO QDAY atorvastatin 40 MG tablet 40 mg PO ONCE metformin [Glucophage] 500 MG tablet 500 mg PO BID lisinopril [Zestril] 10 MG tablet 10 mg PO DAILY vitamin B complex [Ultra B-100 Complex] 1 EACH tablet 1 ea PO DAILY metoprolol succinate 25 MG tablet extended release 24 hr 12.5 mg PO DAILY docusate sodium [Stool Softener] 250 MG capsule 500 mg PO DAILY bupropion HCl [Wellbutrin XL] 150 MG tablet extended release 24 hr 150 mg PO DAILY cholecalciferol (vitamin D3) [Vitamin D3] 2,000 UNIT capsule 2,000 unit PO DAILY magnesium oxide 400 MG tablet 400 mg PO DAILY
[2022-09-03 00:08] LABS: Basophils # (Auto) 0.03 K/mcL (0.00-0.30); Basophils % (Auto) 0.3 % (0.0-2.0); Eosinophils # (Auto) 0 K/mcL (0.00-0.70); Eosinophils % (Auto) 0 % (0.0-7.0); Hematocrit 43.1 % (34.1-44.9); Hemoglobin 14.4 g/dL (11.2-15.7); Lymphocytes % (Auto) 13.7 % (15.5-49.0); Mean Cell Volume 88.7 fL (80.0-100.0); Mean Corpuscular HGB Conc 33.4 g/dL (31.0-36.0); Monocytes # (Auto) 1.15 K/mcL (0.10-0.90); Monocytes % (Auto) 13.1 % (1.0-12.0); Neutrophils % (Auto) 72.3 % (38.0-78.0); Platelet Count 294 K/mcL (140-440); RBC 4.86 M/mcL (3.59-5.38); Red Cell Distribution Width 14.9 % (11.5-14.5); WBC 8.8 K/mcL (4.5-11.0)
[2022-09-03 00:21] LABS: Appearance,Urine CLEAR (Clear); Bilirubin,Urine NEGATIVE (Negative); Color,Urine LT. YELLOW; Culture Indicated,Urine No; Glucose,Urine (UA) NEGATIVE (Negative); Ketones,Urine NEGATIVE (Negative); Leukocyte Esterase,Urine NEGATIVE /uL (Negative); Mucus,Urine FEW /hpf; Nitrate,Urine NEGATIVE (Negative); Protein,Urine 100 mg/dL (Negative); Specific Gravity,Urine 1.025 (1.000-1.035); Urine Blood SMALL ery/mcL (Negative); Urine RBC 3 /hpf (0-3); Urine Squamous Epithelial Cell 0 /hpf (0-4); Urine WBC 1 /hpf (0-4); Urobilinogen,Urine Normal
[2022-09-03] MEDS ORDERED: VANCOMYCIN 1,000 MG in 0.9 % SODIUM CHLORIDE 250 ML IV ONE (01:05)
[2022-09-03] MEDS ORDERED: cefTRIAXone 2 GM in DEXTROSE 5% IN WATER 50 ML IV ONE (01:05)
[2022-09-03] MEDS ORDERED: ONDANSETRON 4 MG/2 ML VIAL IV PRN ×2 (01:27→07:15)
[2022-09-03] MEDS ORDERED: REMDESIVIR 200 MG in 0.9 % SODIUM CHLORIDE 250 ML IV ONE (01:27)
[2022-09-03] MEDS ORDERED: ACETAMINOPHEN 325 MG TABLET PO PRN ×2 (01:27→07:15)
[2022-09-03] MEDS ORDERED: DEXAMETHASONE 10 MG/ML VIAL IV ONE (01:27)
[2022-09-03] MEDS: 0.9 % SODIUM CHLORIDE 1,000 ML IV SCH ×4 (03:58→23:40)
[2022-09-03] MEDS ORDERED: DEXTROSE 31 GM ORAL.SUSP PO PRN (07:18)
[2022-09-03] MEDS ORDERED: DEXTROSE 50% 50 ML VIAL IV PRN (07:18)
[2022-09-03] MEDS ORDERED: REMDESIVIR 100 MG in 0.9 % SODIUM CHLORIDE 250 ML IV SCH (07:30)
[2022-09-03 08:22] LABS: Blood Urea Nitrogen 16 mg/dL (8-23); Calcium 7.8 mg/dL (8.6-10.4); Carbon Dioxide 21 mmol/L (22-30); Chloride 99 mmol/L (96-108); Glomerular Filtration Rate 71; Glucose 110 mg/dL (70-105)
[2022-09-03] MEDS: INSULIN LISPRO 1 UNIT/0.01 ML UNIT SQ SCH ×4 (08:38→20:58)
--- NOTE | 2022-09-03 08:39 | Cat Scan Report ---
History: Short of breath TECHNIQUE: Following injection of intravenous nonionic contrast the chest was imaged during the pulmonary arterial phase. Sagittal, coronal and MIPS images were created. The radiation exposure was limited using dose reduction technology. Patient has a multinodular goiter. Some of the nodules have coarse calcifications. The pulmonary arteries are normal without evidence of emboli. The aorta is normal in caliber. There is a moderate amount of plaque along the wall of the arch and there is moderate atherosclerotic coronary artery disease. The heart size is normal. There is a small pericardial effusion. There is a tiny layering left-sided pleural effusion. There is inflammation and fibrosis in both lungs. There is a honeycomb pattern in the periphery of the right upper lobe and mild honeycombing in the periphery of the posterior basal segments of both lower lobes. Surrounding these areas of fibrosis there are ill-defined zones of groundglass alveolar opacification indicating an active inflammatory process. There is no lobar consolidation. No mass is present. The trachea and mainstem bronchi are normal. There is bronchial wall thickening in both lower lobes. No abnormally enlarged lymph nodes are present. Patient has mild generalized fatty infiltration of liver. IMPRESSION: No evidence pulmonary emboli Pulmonary fibrosis and inflammation in both lungs. The pattern is nonspecific. This may be due to a noninfectious inflammatory process such as usual interstitial pneumonia (UIP) or pneumonia. Atherosclerosis Interpreted and Authenticated by: Dallas Lee 09/03/22
[2022-09-03] MEDS: BUDESONIDE 0.5 MG/2 ML AMPUL.NEB NEB SCH ×2 (09:19→19:58)
[2022-09-03] MEDS: ENOXAPARIN 40 MG/0.4 ML SYRINGE SQ SCH (09:51)
[2022-09-03] MEDS: METOPROLOL SUCCINATE 25 MG TAB.XL.24H PO SCH (09:51)
[2022-09-03] MEDS: DEXAMETHASONE 4 MG TABLET PO SCH (09:52)
--- NOTE | 2022-09-03 09:55 | EKG ---
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
[2022-09-03] MEDS: DOCUSATE SODIUM 100 MG CAPSULE PO SCH ×2 (09:59→20:41)
--- NOTE | 2022-09-03 10:02 | Internal Med History&Physical ---
HPI History of Present Illness Patient information: Note initiated : 09/03/22 at 9:58 am Service Date, if different from initiated Date: [] Patient: Felicia Grewal 77 y/o F admitted on 09/03/22 for Shortness of breath. Chief Complaint: [SOB] Chief complaint: SOB History of present illness: Ms. Grewal is a 77 year old F with a past medical history significant for hyperlipidemia, hypertension, depression, and urinary incontinence who presents to the hospital with progressive dyspnea. The patient was recently at [facility] ER where she was brought in by her . From my understanding per my discussion with the ER physician, the refused to admit her. After going home, the patient continued to feel short of breath. She was recently diagnosed with SARS-CoV-2. On presentation, she was hemodynamically stable but hypoxemic. The patient's labs were unrevealing. CTA chest was negative for PE but revealed pulmonary fibrosis and inflammation in both lungs. the hospitalist service was asked admit the patient for further management and evaluation of her acute hypoxemic respiratory failure in the setting of viral pneumonia. Review of Systems All systems: reviewed and no additional remarkable complaints except as stated Constitutional Constitutional: Present as per HPI EENT Eyes: Present as per HPI; Absent blurry vision Cardiovascular Cardiovascular: Present as per HPI; Absent chest pain, dyspnea, dyspnea on exertion, leg edema or palpatations Respiratory Respiratory: Present as per HPI, dyspnea and dyspnea on exertion; Absent cough, wheezing or stridor Gastrointestinal Gastrointestinal: Present as per HPI; Absent abdominal pain, diarrhea, dysphagia, hematemesis, melena, nausea or vomiting Musculoskeletal Musculoskeletal: Present as per HPI; Absent joint swelling, limited range of motion, muscle cramps, muscle weakness or myalgias Integumentary Integumentary: Present as per HPI; Absent erythema, new lesions, rash or wounds Neurological Neurological: Present as per HPI; Absent abnormal gait, behavioral changes, focal weakness, headache(s), loss of vision, numbness, sensory deficit or syncope Endocrine Endocrine: Absent change in body appearance, fatigue or heat intolerance Hematologic/Lymphatic Hematologic/Lymphatic: Present as per HPI PFSH PFSH All Active Problems (Updated 09/03/22 @ 01:13 by Jeremy Pineda DO) Sepsis, viral (Acute) Pneumonia due to 2019-nCoV (Acute) Acute UTI (Acute) Acute respiratory failure with hypoxia (Acute) Metabolic encephalopathy (Acute) Gastroenteritis (Acute) Urinary tract infection (Acute) Diarrhea in adult patient (Acute) Medical History Diarrhea in adult patient Gastroenteritis Urinary tract infection Social History smoking status: Former smoker MEDS/ALLERGIES Home Medications and Allergies Home Medications Medication Instructions Recorded Confirmed Type atorvastatin 40 mg tablet 40 mg PO ONCE 11/14/16 09/03/22 History bupropion HCl 150 mg 24 hr tablet, 150 mg PO DAILY 11/14/16 09/03/22 History extended release (Wellbutrin XL) cholecalciferol (vitamin D3) 50 2,000 unit PO DAILY 11/14/16 09/03/22 History mcg (2,000 unit) capsule (Vitamin D3) docusate sodium 250 mg capsule 500 mg PO DAILY 11/14/16 09/03/22 History (Stool Softener) lisinopril 10 mg tablet (Zestril) 10 mg PO DAILY 11/14/16 09/03/22 History magnesium oxide 400 mg PO DAILY 11/14/16 09/03/22 History metformin 500 mg tablet 500 mg PO BID 11/14/16 09/03/22 History (Glucophage) metoprolol succinate 25 mg 12.5 mg PO DAILY 11/14/16 09/03/22 History tablet,extended release 24 hr vitamin B complex (Ultra B-100 1 ea PO DAILY 11/14/16 09/03/22 History Complex tablet) calcium carbonate 600 mg calcium 600 mg PO QDAY 01/27/22 09/03/22 History (1,500 mg) tablet (Calcium) carboxymethylcellulose sodium 0.5 1 drp ophthalmic (eye) BID 01/27/22 09/03/22 History % eye drops in a dropperette clotrimazole 1 % topical cream 1 applic topical BID 01/27/22 09/03/22 History colchicine 0.6 mg capsule 0.6 mg PO QDAY 01/27/22 09/03/22 History oxybutynin chloride 5 mg tablet 5 mg PO QDAY 01/27/22 09/03/22 History terbinafine HCl 250 mg tablet 250 mg PO QDAY 01/27/22 09/03/22 History Allergies Allergy/AdvReac Type Severity Reaction Status Date / Time [place] Allergy Verified 09/02/22 22:28 EXAM Constitutional Vitals: Temp Pulse Resp BP Pulse Ox O2 Del Method O2 Flow Rate 97.6 F 84 20 154/63 92 1 09/03/22 08:01 09/03/22 09:22 09/03/22 09:22 09/03/22 08:01 09/03/22 09:22 09/03/22 09:22 09/03/22 09:22 General appearance: average body habitus Head Head exam: Present atraumatic, normal inspection and normocephalic Eye Eye exam: Present EOMI, normal appearance and PERRL; Absent conjunctival injection ENT ENT exam: Present normal exam; Absent mucous membranes dry Neck Neck exam: Present full ROM; Absent lymphadenopathy Respiratory Respiratory exam: Present normal respiratory exam, decreased breath sounds and rhonchi; Absent respiratory distress or wheezes Cardiovascular Cardiovascular exam: Present normal rate and rhythm and RRR; Absent JVD GI/Abdominal GI/Abdominal exam: Present normal bowel sounds and soft; Absent diminished bowel sounds, distended, guarding, mass, rebound or tenderness Neurological Exam Neurological exam: Present alert, CN II-XII intact and oriented X3 Psychiatric Psychiatric exam: Present normal affect and normal mood Skin Skin exam: Present intact and warm; Absent erythema, pallor, petechiae or rash DATA Data Completed and Pending Labs: Labs from last 24 hours 09/03/22 09/03/22 09/03/22 00:26 00:26 00:26 WBC RBC Hgb Hct POC Hct MCV MCH MCHC RDW Plt Count MPV Immature Gran % (Auto) Neut % (Auto) Lymph % (Auto) [place] % (Auto) Eos % (Auto) Baso % (Auto) Lymph # (Auto) [place] # (Auto) Eos # (Auto) Baso # (Auto) Immature Gran # Absolute Neutrophils D-Dimer 1.02 H POC VBG pH POC VBG pCO2 at Temp POC VBG pO2 POC VBG HCO3 POC VBG Total CO2 POC Venous O2 Sat POC VBG Base Excess VBG Lactic Acid POC Sodium Sodium 133 POC Potassium Potassium 3.3 POC Chloride Chloride 99 Carbon Dioxide 21 L POC Total CO2 Anion Gap 13.0 POC BUN BUN 16 Creatinine 0.8 POC Creatinine GFR Calculation 71 Glucose 110 H POC Glucose Calcium 7.8 L POC WB Ioniz Calcium Ammonia Procalcitonin 0.11 H Urine Color Urine Appearance Urine pH Ur Specific [place] Urine Protein Urine Glucose (UA) Urine Ketones Urine Occult Blood Urine Nitrate Urine Bilirubin Urine Urobilinogen Ur Leukocyte Esterase Urine RBC Urine WBC Ur Squamous Epith Cells Urine Bacteria Urine Mucus Ur Culture Indicated? 09/02/22 09/02/22 09/02/22 23:30 23:15 23:11 WBC RBC Hgb Hct POC Hct MCV MCH MCHC RDW Plt Count MPV Immature Gran % (Auto) Neut % (Auto) Lymph % (Auto) [place] % (Auto) Eos % (Auto) Baso % (Auto) Lymph # (Auto) [place] # (Auto) Eos # (Auto) Baso # (Auto) Immature Gran # Absolute Neutrophils D-Dimer POC VBG pH 7.44 H POC VBG pCO2 at Temp 41.4 POC VBG pO2 25 POC VBG HCO3 28.2 H POC VBG Total CO2 29.0 POC Venous O2 Sat 49.0 POC VBG Base Excess 4.0 H* VBG Lactic Acid 1.5 POC Sodium Sodium POC Potassium Potassium POC Chloride Chloride Carbon Dioxide POC Total CO2 Anion Gap POC BUN BUN Creatinine POC Creatinine GFR Calculation Glucose POC Glucose Calcium POC WB Ioniz Calcium Ammonia 35 Procalcitonin Urine Color Lt. yellow Urine Appearance Clear Urine pH 6.0 Ur Specific [place] 1.025 Urine Protein 100 A Urine Glucose (UA) Negative Urine Ketones Negative Urine Occult Blood Small A Urine Nitrate Negative Urine Bilirubin Negative Urine Urobilinogen Normal Ur Leukocyte Esterase Negative Urine RBC 3 Urine WBC 1 Ur Squamous Epith Cells 0 Urine Bacteria None Urine Mucus Few A Ur Culture Indicated? No 09/02/22 09/02/22 09/02/22 23:10 23:08 23:08 WBC 8.8 RBC 4.86 Hgb 14.4 Hct 43.1 POC Hct MCV 88.7 MCH 29.6 MCHC 33.4 RDW 14.9 H Plt Count 294 MPV 12.0 Immature Gran % (Auto) 0.6 H Neut % (Auto) 72.3 Lymph % (Auto) 13.7 L [place] % (Auto) 13.1 H Eos % (Auto) 0 Baso % (Auto) 0.3 Lymph # (Auto) 1.20 L [place] # (Auto) 1.15 H Eos # (Auto) 0 Baso # (Auto) 0.03 Immature Gran # 0.05 Absolute Neutrophils 6.33 D-Dimer TNP POC VBG pH POC VBG pCO2 at Temp POC VBG pO2 POC VBG HCO3 POC VBG Total CO2 POC Venous O2 Sat POC VBG Base Excess VBG Lactic Acid POC Sodium Sodium POC Potassium Potassium POC Chloride Chloride Carbon Dioxide POC Total CO2 Anion Gap POC BUN BUN Creatinine POC Creatinine GFR Calculation Glucose POC Glucose Calcium POC WB Ioniz Calcium Ammonia Procalcitonin TNP Urine Color Urine Appearance Urine pH Ur Specific [place] Urine Protein Urine Glucose (UA) Urine Ketones Urine Occult Blood Urine Nitrate Urine Bilirubin Urine Urobilinogen Ur Leukocyte Esterase Urine RBC Urine WBC Ur Squamous Epith Cells Urine Bacteria Urine Mucus Ur Culture Indicated? 09/02/22 22:50 WBC RBC Hgb Hct POC Hct 45.0 MCV MCH MCHC RDW Plt Count MPV Immature Gran % (Auto) Neut % (Auto) Lymph % (Auto) [place] % (Auto) Eos % (Auto) Baso % (Auto) Lymph # (Auto) [place] # (Auto) Eos # (Auto) Baso # (Auto) Immature Gran # Absolute Neutrophils D-Dimer POC VBG pH POC VBG pCO2 at Temp POC VBG pO2 POC VBG HCO3 POC VBG Total CO2 POC Venous O2 Sat POC VBG Base Excess VBG Lactic Acid POC Sodium 133 Sodium POC Potassium 5.3 H Potassium POC Chloride 99 Chloride Carbon Dioxide POC Total CO2 29.0 Anion Gap POC BUN 21 H BUN Creatinine POC Creatinine 0.8 GFR Calculation Glucose POC Glucose 119 H Calcium POC WB Ioniz Calcium 1.03 L Ammonia Procalcitonin Urine Color Urine Appearance Urine pH Ur Specific [place] Urine Protein Urine Glucose (UA) Urine Ketones Urine Occult Blood Urine Nitrate Urine Bilirubin Urine Urobilinogen Ur Leukocyte Esterase Urine RBC Urine WBC Ur Squamous Epith Cells Urine Bacteria Urine Mucus Ur Culture Indicated? A/P Assessment and plan (1) Sepsis, viral: Status: Acute (2) Pneumonia due to 2019-nCoV: Status: Acute (3) Acute respiratory failure with hypoxia: Status: Acute (4) Metabolic encephalopathy: Status: Acute Narrative A/P Narrative: The patient has no known history of parenchymal lung disease. She is a non- smoker. She was found to be newly hypoxemic in the setting of a viral pneumonia. She does meet criteria for remdesivir and dexamethasone 6 mg p.o. daily. We will also start duo nebs and Pulmicort. The patient will be assessed by PT/OT. She may be able to go home with home health and home O2. Time Spent With Patient Time: Total time spent is greater than 50% in coordination of care (as documented) at patient's floor/unit and/or counseling patient: Initial: Total time with patient: 55 - 74 minutes QUALITY Stroke Symptom Onset Unknown: No VTE Deep Vein Thrombosis/Pulmonary Embolism Present on Admission: No
[2022-09-03] MEDS: IPRATROPIUM/ALBUTEROL 3 ML AMPUL.NEB NEB SCH ×2 (13:41→19:58)
[2022-09-03] MEDS: 0.9 % SODIUM CHLORIDE 10 ML SYRINGE IV SCH ×2 (15:29→20:59)
[2022-09-03] MEDS: REMDESIVIR 100 MG in 0.9 % SODIUM CHLORIDE 250 ML IV SCH (17:18)
[2022-09-03] MEDS ORDERED: hydrALAZINE 20 MG/ML VIAL IV PRN (19:04)
[2022-09-03] MEDS ORDERED: ATORVASTATIN 40 MG TABLET PO SCH (19:15)
[2022-09-03] MEDS: SENNOSIDES 1 TABLET PO SCH (20:41)
[2022-09-03] MEDS ORDERED: CARBOXYMETHYLCELLULOSE SODIUM 0.5% OPHTHALMIC SCH (21:00)
[2022-09-03] MEDS ORDERED: LISINOPRIL 10 MG TABLET ONE (21:51)
[2022-09-03] MEDS: LISINOPRIL 10 MG TABLET PO SCH (21:52)
[2022-09-03] MEDS: ATORVASTATIN 40 MG TABLET PO SCH (21:52)
[2022-09-04] MEDS: IPRATROPIUM/ALBUTEROL 3 ML AMPUL.NEB NEB SCH ×4 (01:37→20:01)
[2022-09-04] MEDS: 0.9 % SODIUM CHLORIDE 10 ML SYRINGE IV SCH ×3 (05:13→21:40)
[2022-09-04 06:43] LABS: Basophils # (Auto) 0.02 K/mcL (0.00-0.30); Basophils % (Auto) 0.2 % (0.0-2.0); Eosinophils # (Auto) 0.02 K/mcL (0.00-0.70); Eosinophils % (Auto) 0.2 % (0.0-7.0); Hematocrit 41.2 % (34.1-44.9); Hemoglobin 13.2 g/dL (11.2-15.7); Lymphocytes # (Auto) 1.65 K/mcL (1.50-4.80); Lymphocytes % (Auto) 16.3 % (15.5-49.0); Monocytes # (Auto) 1.04 K/mcL (0.10-0.90); Monocytes % (Auto) 10.3 % (1.0-12.0); Neutrophils % (Auto) 72.1 % (38.0-78.0); Platelet Count 341 K/mcL (140-440); RBC 4.58 M/mcL (3.59-5.38); Red Cell Distribution Width 15.1 % (11.5-14.5); WBC 10.1 K/mcL (4.5-11.0)
[2022-09-04] MEDS: 0.9 % SODIUM CHLORIDE 1,000 ML IV SCH ×5 (07:02→19:03)
[2022-09-04] MEDS: INSULIN LISPRO 1 UNIT/0.01 ML UNIT SQ SCH ×4 (07:12→21:39)
[2022-09-04 07:15] LABS: ALT/SGPT 90 U/L (<40); AST/SGOT 85 U/L (<32); Albumin 2.8 gm/dL (3.2-5.2); Alkaline Phosphatase 67 U/L (39-117); Bilirubin,Total 0.2 mg/dL (0.1-1.0); Blood Urea Nitrogen 15 mg/dL (8-23); Calcium 7.8 mg/dL (8.6-10.4); Carbon Dioxide 22 mmol/L (22-30); Chloride 104 mmol/L (96-108); Globulin 2.9 gm/dL (2.2-3.7); Glomerular Filtration Rate 88; Glucose 94 mg/dL (70-105)
[2022-09-04] MEDS: CLOTRIMAZOLE CRM 1% 1 DOSE TUBE TOPICAL SCH ×3 (07:59→21:39)
[2022-09-04] MEDS: ENOXAPARIN 40 MG/0.4 ML SYRINGE SQ SCH (08:18)
[2022-09-04] MEDS: DEXAMETHASONE 4 MG TABLET PO SCH (08:18)
[2022-09-04] MEDS: METOPROLOL SUCCINATE 25 MG TAB.XL.24H PO SCH (08:19)
[2022-09-04] MEDS: DOCUSATE SODIUM 100 MG CAPSULE PO SCH ×2 (08:19→21:21)
[2022-09-04] MEDS: CARBOXYMETHYLCELLULOSE SODIUM 1 EACH DROPER.GEL OU SCH ×2 (08:20→21:46)
[2022-09-04] MEDS: BUDESONIDE 0.5 MG/2 ML AMPUL.NEB NEB SCH ×2 (08:51→20:01)
[2022-09-04] MEDS ORDERED: COLCHICINE 0.6 MG CAPSULE PO SCH (09:00)
[2022-09-04] MEDS ORDERED: CALCIUM (OYSTER SHELL) 500 MG TABLET PO SCH (09:00)
[2022-09-04] MEDS ORDERED: VITAMIN D3 25 MCG TABLET PO SCH (09:00)
[2022-09-04] MEDS ORDERED: DOCUSATE SODIUM 250 MG PO SCH (09:00)
[2022-09-04] MEDS ORDERED: MAGNESIUM OXIDE 400 MG TABLET PO SCH (09:00)
[2022-09-04] MEDS ORDERED: OXYBUTYNIN CHLORIDE 5 MG TABLET PO SCH (09:00)
[2022-09-04] MEDS ORDERED: VITAMIN B COMPLEX 1 CAPSULE PO SCH (09:00)
[2022-09-04] MEDS ORDERED: buPROPion 150 MG TAB.XL.24H PO SCH (09:00)
[2022-09-04] MEDS: LISINOPRIL 10 MG TABLET PO SCH (09:26)
[2022-09-04] MEDS ORDERED: METOPROLOL TARTRATE 5 MG/5 ML VIAL IV PRN (09:54)
[2022-09-04] MEDS ORDERED: IOPAMIDOL 100 ML BOTTLE IV ONE ×2 (09:55→11:03)
--- NOTE | 2022-09-04 09:55 | Internal Med Progress Note ---
SUBJECTIVE Subjective Patient information: Note initiated : 09/04/22 at 9:51 am Service Date, if different from initiated Date: [] Patient: Felicia Grewal 77 y/o F admitted on 09/03/22 for Shortness of breath. Chief Complaint: [] Interval history: 09/04: Patient have worsening mentations with agitations and alert and oriented x1 to person only since this morning, new finding. Her oxygen requirement also increased from 1 L/min to 5 L/min via oxygen mask. Tachycardia and tachypnea also noted. Subjective not obtained due to clinical situations. Will order CT of the head without contrast to rule out acute intracranial pathologies. Will order CT chest angiogram to rule out pulmonary embolism and any other acute intrathoracic pathologies to account for the worsening of her respiratory status. Continue supplemental oxygen therapy meanwhile. Continue dexamethasone and remdesivir for treatment of COVID-pneumonia. Continue physical therapy and Occupational Therapy evaluation and treatment for placement planning. Constitutional Vitals: Vital Signs Temp Pulse Resp BP Pulse Ox O2 Del Method O2 Flow Rate 37.4 C H 113 H 27 H 179/92 92 4 09/04/22 09:45 09/04/22 08:00 09/04/22 08:00 09/04/22 08:00 09/04/22 08:00 09/04/22 07:19 09/04/22 07:19 Period Temp Pulse Resp BP Sys/[place] Pulse Ox O2 Del Method O2 Flow Rate Last 24 Hr 36.1 C-37.6 C 78-113 14-33 104-180/55-120 89-95 Nasal Cannula- Room Air 1-4 Intake and Output 09/03/22 09/04/22 09/04/22 19:59 03:59 11:59 Intake Total 1465 1600 100 Output Total 550 300 425 Balance 915 1300 -325 Weight 86.001 kg 904.463 kg Intake & Output: Intake & Output 09/03/22 09/04/22 09/04/22 19:59 03:59 11:59 Intake Total 1465 1600 100 Output Total 550 300 425 Balance 915 1300 -325 Weight 86.001 kg 904.463 kg Intake: IV 1165 1000 Sodium Chloride 0.9% 1,000 ml @ 915 1000 100 mls/hr IV .Q10H [facility] Rx#: [id number] V[place] 100 mg In Sodium 250 Chloride 0.9% 250 ml @ 500 mls/ hr IV Q24H [facility] Rx#:[id number] Oral 300 600 100 Output: Urine Catheter Amount 550 300 425 Other: Meal Dinner Percent of Meal Consumed Refused Urine Appearance Cloudy Hematuria Clear Uretheral ([place]) Hematuria Clear Urine Color Dark [place] Blood Tinged Yellow Uretheral ([place]) Blood Tinged Yellow Urine Odor Normal Uretheral ([place]) Normal Stool Size Small Large Stool Color Brown Stool Consistency Liquid Loose # Bowel Movements 1 0 1 # of times incontinent of 1 Bowels General appearance: mild distress Head Head exam: Present atraumatic and normal inspection Eye Eye exam: Present normal appearance ENT ENT exam: Present mucous membranes moist, normal exam and normal external ear exam Additional comments: Oxymask in place Neck Neck exam: Present normal inspection Respiratory Respiratory exam: Present decreased breath sounds Additional comments: tachypnea Cardiovascular Cardiovascular exam: Present tachycardia GI/Abdominal GI/Abdominal exam: Present normal bowel sounds Back Exam Back exam: Present normal inspection Neurological Exam Neurological exam: Present alert and oriented X3 Skin Skin exam: Present intact and warm OBJ DATA Labs CBC & Chem 7: 09/04/22 05:26 09/04/22 05:26 Labs: Abnormal Lab Results 09/04/22 09/04/22 09/04/22 09:27 05:26 05:26 RDW 15.1 H Immature Gran % (Auto) 0.9 H Lymph % (Auto) [place] % (Auto) Lymph # (Auto) [place] # (Auto) 1.04 H Immature Gran # 0.09 H D-Dimer POC pCO2 26.9 L POC pO2 52 L POC HCO3 17.1 L POC Total CO2 18.0 L POC ABG Base Excess -8.0 L POC VBG pH POC VBG HCO3 POC VBG Base Excess Hgb O2 Saturation 87.0 L POC Potassium Carbon Dioxide POC BUN Glucose POC Glucose Calcium 7.8 L POC WB Ioniz Calcium AST 85 H ALT 90 H Total Protein 5.7 L Albumin 2.8 L Procalcitonin Urine Protein Urine Occult Blood Urine Mucus 09/03/22 09/03/22 09/03/22 00:26 00:26 00:26 RDW Immature Gran % (Auto) Lymph % (Auto) [place] % (Auto) Lymph # (Auto) [place] # (Auto) Immature Gran # D-Dimer 1.02 H POC pCO2 POC pO2 POC HCO3 POC Total CO2 POC ABG Base Excess POC VBG pH POC VBG HCO3 POC VBG Base Excess Hgb O2 Saturation POC Potassium Carbon Dioxide 21 L POC BUN Glucose 110 H POC Glucose Calcium 7.8 L POC WB Ioniz Calcium AST ALT Total Protein Albumin Procalcitonin 0.11 H Urine Protein Urine Occult Blood Urine Mucus 09/02/22 09/02/22 09/02/22 23:30 23:15 23:08 RDW 14.9 H Immature Gran % (Auto) 0.6 H Lymph % (Auto) 13.7 L [place] % (Auto) 13.1 H Lymph # (Auto) 1.20 L [place] # (Auto) 1.15 H Immature Gran # D-Dimer POC pCO2 POC pO2 POC HCO3 POC Total CO2 POC ABG Base Excess POC VBG pH 7.44 H POC VBG HCO3 28.2 H POC VBG Base Excess 4.0 H* Hgb O2 Saturation POC Potassium Carbon Dioxide POC BUN Glucose POC Glucose Calcium POC WB Ioniz Calcium AST ALT Total Protein Albumin Procalcitonin Urine Protein 100 A Urine Occult Blood Small A Urine Mucus Few A 09/02/22 22:50 RDW Immature Gran % (Auto) Lymph % (Auto) [place] % (Auto) Lymph # (Auto) [place] # (Auto) Immature Gran # D-Dimer POC pCO2 POC pO2 POC HCO3 POC Total CO2 POC ABG Base Excess POC VBG pH POC VBG HCO3 POC VBG Base Excess Hgb O2 Saturation POC Potassium 5.3 H Carbon Dioxide POC BUN 21 H Glucose POC Glucose 119 H Calcium POC WB Ioniz Calcium 1.03 L AST ALT Total Protein Albumin Procalcitonin Urine Protein Urine Occult Blood Urine Mucus Meds: Medications Acetaminophen (Acetaminophen 325 Mg Tablet) 650 mg PO Q6HP PRN; Protocol PRN Reason: Per Pain Protocol/Fever > 101 Last Admin: 09/04/22 09:00 Dose: 650 mg Albuterol/Ipratropium (Ipratropium/Albuterol 3 Ml Ampul.Neb) 3 ml NEB Q6HRT [facility] Last Admin: 09/04/22 06:25 Dose: 3 ml Artificial Tears (Carboxymethylcellulose Sodium 1 Each Droper.Gel) 1 each OU BID [facility] Last Admin: 09/04/22 08:20 Dose: 1 each Atorvastatin Calcium (Atorvastatin 40 Mg Tablet) 40 mg PO HS [facility] Last Admin: 09/03/22 21:52 Dose: 40 mg Budesonide (Budesonide 0.5 Mg/2 Ml Ampul.Neb) 0.5 mg NEB Q12 [facility] Last Admin: 09/04/22 08:51 Dose: Not Given Bupropion HCl (Bupropion 150 Mg Tab.Xl.24h) 150 mg PO DAILY [facility] Last Admin: 09/04/22 08:18 Dose: 150 mg Calcium Carbonate/Glycine (Calcium (Oyster Shell) 500 Mg Tablet) 500 mg PO DAILY [facility] Last Admin: 09/04/22 08:20 Dose: 500 mg Clotrimazole (Clotrimazole Crm 1% 1 Dose Tube) 1 dose TOPICAL BID [facility] Last Admin: 09/04/22 08:20 Dose: Not Given Colchicine (Colchicine 0.6 Mg Capsule) 0.6 mg PO QDAY [facility] Last Admin: 09/04/22 08:18 Dose: 0.6 mg Dexamethasone (Dexamethasone 4 Mg Tablet) 6 mg PO DAILY [facility] Last Admin: 09/04/22 08:18 Dose: 6 mg Dextrose (Dextrose 50% 50 Ml Vial) 0 ml IV UD PRN PRN Reason: Per Sliding Scale Diagnostic Test (Pha) (Accu-Chek 1 Each Strip) 1 each FS ACHS [facility] Last Admin: 09/04/22 07:12 Dose: 1 each Docusate Sodium (Docusate Sodium 100 Mg Capsule) 100 mg PO BID [facility] Last Admin: 09/04/22 08:19 Dose: Not Given Enoxaparin Sodium (Enoxaparin 40 Mg/0.4 Ml Syringe) 40 mg SQ DAILY [facility] Last Admin: 09/04/22 08:18 Dose: 40 mg Glucose (Dextrose 31 Gm Oral.Susp) 15 gm PO PRN PRN PRN Reason: Hypoglycemia Hydralazine HCl (Hydralazine 20 Mg/Ml Vial) 10 mg IV Q4-6HP PRN PRN Reason: Hypertension Sodium Chloride (Sodium Chloride 0.9%) 1,000 mls @ 100 mls/hr IV .Q10H [facility] Last Admin: 09/04/22 07:02 Dose: Not Given REMDESIVIR 100 mg/ Sodium (Chloride) 250 mls @ 500 mls/hr IV Q24H [facility] Stop: 09/06/22 19:00 Last Infusion: 09/03/22 17:59 Dose: Infused Ibuprofen (Ibuprofen 600 Mg Tablet) 600 mg PO QIDP PRN; Protocol PRN Reason: Per Pain Protocol/Fever > 101 Insulin Human Lispro (Insulin Lispro 1 Unit/0.01 Ml Unit) 0 unit SQ ACHS [facility]; Protocol Last Admin: 09/04/22 07:12 Dose: Not Given Lisinopril (Lisinopril 10 Mg Tablet) 10 mg PO DAILY [facility] Last Admin: 09/04/22 09:26 Dose: 10 mg Magnesium Oxide (Magnesium Oxide 400 Mg Tablet) 400 mg PO DAILY [facility] Last Admin: 09/04/22 08:18 Dose: 400 mg Metoprolol Succinate (Metoprolol Succinate 25 Mg Tab.Xl.24h) 12.5 mg PO DAILY [facility] Last Admin: 09/04/22 08:19 Dose: 12.5 mg Ondansetron HCl (Ondansetron 4 Mg/2 Ml Vial) 4 mg IV Q6HP PRN PRN Reason: Nausea And Vomiting Oxybutynin Chloride (Oxybutynin Chloride 5 Mg Tablet) 5 mg PO QDAY [facility] Last Admin: 09/04/22 08:19 Dose: 5 mg Senna (Sennosides 1 Tablet) 2 tab PO HS [facility] Last Admin: 09/03/22 20:41 Dose: Not Given Sodium Chloride (0.9 % Sodium Chloride 10 Ml Syringe) 10 ml IV Q8 [facility] Last Admin: 09/04/22 05:13 Dose: 10 ml Vitamin B Complex (Vitamin B Complex 1 Capsule) 1 cap PO DAILY [facility] Last Admin: 09/04/22 08:18 Dose: 1 cap Vitamin D (Vitamin D3 25 Mcg Tablet) 50 mcg PO DAILY [facility] Last Admin: 09/04/22 08:18 Dose: 50 mcg A/P Assessment and plan (1) T2DM (type 2 diabetes mellitus): Status: Acute (2) Essential hypertension: Status: Acute (3) Hyperlipidemia associated with type 2 diabetes mellitus: Status: Acute (4) Depression: Status: Acute (5) Pneumonia due to 2019-nCoV: Status: Acute (6) Delirium: Status: Acute (7) Acute respiratory failure with hypoxia: Status: Acute Narrative A/P Narrative: Assessment and Plans: 1. CoVID pneumonia with associated acute respiratory distress with hypoxia: Inpatient PCU Isolation: airborne and contact Supplemental oxygen therapy Dexamethasone Remdisivir DuoNEB Pulmicort Physical therapy evaluation and treatment Occupational therapy evaluation and treatment CT chest angiogram to rule out pulmonary embolism and any other acute intrathoracic pathologies 2. Acute delirium: DDx: results of high dose steriod Dexamethasone, acute intracranial pathologies such as CVA, secondary to CoVID pneumonia CT head w/o Treat CoVID pneumonia, see #1 Ativan IV PRN agitation/anxiety if PE/CVA ruled out 3. T2DM: HgA1c Insulin Lispro SSI AC HS Accu Check AC HS Hypoglycemia protocol Diabetic diet 4. Essential HTN: Toprol XL Lisinopril 5. Hyperlipidemia: Lipitor 6. Depression: Wellbutrin GI ppx: not currently indicated DVT ppx: Lovenox Code status: Full Prognosis: extremely guarded Disposition: inpatient PCU; PT OT Time Spent With Patient Time: Total time spent is greater than 50% in coordination of care (as documented) at patient's floor/unit and/or counseling patient: Subsequent: Total time with patient: 35 - 49 minutes QUALITY Stroke Symptom Onset Unknown: No VTE Deep Vein Thrombosis/Pulmonary Embolism Present on Admission: No
[2022-09-04] MEDS: REMDESIVIR 100 MG in 0.9 % SODIUM CHLORIDE 250 ML IV SCH ×2 (09:56→09:59)
--- NOTE | 2022-09-04 11:21 | Cat Scan Report ---
History: Increased confusion TECHNIQUE: The brain was imaged without contrast in axial plane at 2.5 mm intervals. Sagittal and coronal reformats were created. The radiation exposure was limited using dose reduction technology. FINDINGS: There is mild generalized atrophy, most apparent in the frontal and temporal lobes. There is no evidence of hemorrhage, infarct, edema or mass effect. The ventricles are prominent but proportionate to the atrophy. There are mild white matter changes with subtle areas of decreased attenuation in the centrum semiovale in the frontal lobes. No abnormal extra-axial fluid collection is present. There is opacification of the right lateral recess of the sphenoid sinus. There is also mucosal thickening along the moore of both maxillary sinuses and mild mucosal thickening in a few ethmoid air cells. The mastoids are normally aerated. Comparison with the prior head CT done on 11/04/16 shows there has been mild progression of the atrophy. The sinusitis has developed since the prior exam. IMPRESSION: Age-related degenerative changes with atrophy and mild white matter ischemia or degeneration. Sinusitis Interpreted and Authenticated by: Dallas Lee 09/04/22
--- NOTE | 2022-09-04 11:30 | Cat Scan Report ---
History: Short of breath, pulmonary infiltrates TECHNIQUE: Following injection of intravenous nonionic contrast the chest was imaged during the arterial phase from the thoracic inlet through the diaphragms. Sagittal, coronal and MIPS images were created. The radiation exposure was limited using dose reduction technology. Finding: The pulmonary arteries are normal with no emboli. Aorta is normal in caliber and there is a large amount calcified plaque along the wall of the aorta. The heart size is normal and there is plaque formation in the coronary arteries. Moderate diffuse infiltrates are present in both lungs, predominantly involving the dependent portions of both lungs. There is milder involvement in the lingula, right middle lobe and anterior segments of the upper lobes. There is underlying pulmonary fibrosis with a mild honeycomb pattern in the right upper lobe. The infiltrates have become somewhat worse since the recent chest CT done on 09/02/22. There are small bilateral layering pleural effusions, right greater than left. These have also enlarged. There are several lymph nodes in the mediastinum in the pretracheal retrocaval space and subcarinal space. The trachea and bronchi are normal. IMPRESSION: Worsening bilateral pneumonia. No pulmonary emboli Interpreted and Authenticated by: Dallas Lee 09/04/22
[2022-09-04] MEDS: SENNOSIDES 1 TABLET PO SCH (21:40)
[2022-09-04] MEDS: ATORVASTATIN 40 MG TABLET PO SCH (21:46)
[2022-09-05] MEDS: IPRATROPIUM/ALBUTEROL 3 ML AMPUL.NEB NEB SCH ×5 (01:09→19:30)
[2022-09-05] MEDS: 0.9 % SODIUM CHLORIDE 1,000 ML IV SCH (03:45)
[2022-09-05] MEDS ORDERED: LORazepam 2 MG/ML VIAL ONE ×2 (05:01→05:20)
[2022-09-05] MEDS ORDERED: LORazepam 2 MG/ML VIAL IV PRN (05:02)
[2022-09-05] MEDS: 0.9 % SODIUM CHLORIDE 10 ML SYRINGE IV SCH ×3 (05:05→20:58)
[2022-09-05] MEDS ORDERED: FUROSEMIDE 40 MG/4 ML VIAL IV ONE ×2 (05:20→05:22)
[2022-09-05] MEDS: METOPROLOL TARTRATE 5 MG/5 ML VIAL IV PRN ×2 (05:25→06:54)
[2022-09-05] MEDS: LORazepam 2 MG/ML VIAL IV ONE ×2 (05:25)
[2022-09-05] MEDS ORDERED: METOPROLOL TARTRATE 5 MG/5 ML VIAL IV ONE ×2 (05:40→06:28)
[2022-09-05] MEDS ORDERED: VANCOMYCIN PER PHARMACY IV SCH (06:39)
--- NOTE | 2022-09-05 06:41 | Internal Med Progress Note ---
SUBJECTIVE Subjective Patient information: Note initiated : 09/05/22 at 6:31 am Service Date, if different from initiated Date: [] Patient: Felicia Grewal 77 y/o F admitted on 09/03/22 for Shortness of breath. Chief Complaint: [] Interval history: 09/04: Patient have worsening mentations with agitations and alert and oriented x1 to person only since this morning, new finding. Her oxygen requirement also increased from 1 L/min to 5 L/min via oxygen mask. Tachycardia and tachypnea also noted. Subjective not obtained due to clinical situations. Will order CT of the head without contrast to rule out acute intracranial pathologies. Will order CT chest angiogram to rule out pulmonary embolism and any other acute intrathoracic pathologies to account for the worsening of her respiratory status. Continue supplemental oxygen therapy meanwhile. Continue dexamethasone and remdesivir for treatment of COVID-pneumonia. Continue physical therapy and Occupational Therapy evaluation and treatment for placement planning. 09/05: CT chest angiogram: negative for pulmonary embolism, worsening bilateral pneumonia. Patient deteriorate overnight, increasing oxygen requirement, and became very confused and not oriented. Placed on nonrebreather, then BiPAP. Transfer to inpatient ICU. Repeat CXR Repeat VBG Blood cultures X2, then Vancomycin/Zosyn Saline lock, Lasix 40mg IV once Ativan 1mg IV q6h PRN anxiety/agitation Continue Dexamethasone/Remdesivir Will touch base with family regarding prognosis/goal of care Constitutional Vitals: Vital Signs Temp Pulse Resp BP Pulse Ox O2 Del Method O2 Flow Rate 36.4 C 142 H 36 H 130/66 90 8 09/05/22 00:00 09/05/22 06:22 09/05/22 06:22 09/05/22 06:17 09/05/22 06:22 09/05/22 04:00 09/05/22 04:00 Period Temp Pulse Resp BP Sys/[place] Pulse Ox O2 Del Method O2 Flow Rate Last 24 Hr 35.9 C-37.6 C 92-142 15-44 93-179/66-92 65-97 High Flow Nasal Cannula-Oxymask 4-10 Intake and Output 09/04/22 09/05/22 09/05/22 19:59 03:59 11:59 Intake Total 1205 150 Output Total 1000 650 Balance 205 -500 Weight 88.088 kg Intake & Output: Intake & Output 09/04/22 09/05/22 09/05/22 19:59 03:59 11:59 Intake Total 1205 150 Output Total 1000 650 Balance 205 -500 Weight 88.088 kg Intake: IV 905 Sodium Chloride 0.9% 1,000 ml @ 905 100 mls/hr IV .Q10H [facility] Rx#: [id number] Oral 300 150 Output: Urine Catheter Amount 1000 650 Other: Meal Lunch Percent of Meal Consumed Refused Urine Appearance Hematuria Clear Small Blood Clots Uretheral (Kilpatrick) Hematuria Urine Color Blood Tinged Yellow Uretheral (Kilpatrick) Blood Tinged Urine Odor Normal Normal Stool Size Small Stool Color Brown Stool Consistency Loose # Bowel Movements 1 # of times incontinent of 0 Bowels General appearance: severe distress Head Head exam: Present atraumatic and normal inspection Eye Eye exam: Present normal appearance ENT ENT exam: Present mucous membranes moist, normal exam and normal external ear exam Additional comments: BiPAP in place Neck Neck exam: Present normal inspection Respiratory Respiratory exam: Present rhonchi Cardiovascular Cardiovascular exam: Present tachycardia GI/Abdominal GI/Abdominal exam: Present normal bowel sounds Additional comments: Kilpatrick catheter in place Back Exam Back exam: Present normal inspection Neurological Exam Neurological exam: Present alert and oriented X3 Skin Skin exam: Present intact and warm OBJ DATA Labs CBC & Chem 7: 09/04/22 05:26 09/04/22 05:26 Labs: Abnormal Lab Results 09/04/22 09/04/22 09/04/22 09:27 05:26 05:26 RDW 15.1 H Immature Gran % (Auto) 0.9 H Lymph % (Auto) [place] % (Auto) Lymph # (Auto) [place] # (Auto) 1.04 H Immature Gran # 0.09 H D-Dimer POC pCO2 26.9 L POC pO2 52 L POC HCO3 17.1 L POC Total CO2 18.0 L POC ABG Base Excess -8.0 L POC VBG pH POC VBG HCO3 POC VBG Base Excess Hgb O2 Saturation 87.0 L POC Potassium Carbon Dioxide POC BUN Glucose POC Glucose Calcium 7.8 L POC WB Ioniz Calcium AST 85 H ALT 90 H Total Protein 5.7 L Albumin 2.8 L Procalcitonin Urine Protein Urine Occult Blood Urine Mucus 09/03/22 09/03/22 09/03/22 00:26 00:26 00:26 RDW Immature Gran % (Auto) Lymph % (Auto) [place] % (Auto) Lymph # (Auto) [place] # (Auto) Immature Gran # D-Dimer 1.02 H POC pCO2 POC pO2 POC HCO3 POC Total CO2 POC ABG Base Excess POC VBG pH POC VBG HCO3 POC VBG Base Excess Hgb O2 Saturation POC Potassium Carbon Dioxide 21 L POC BUN Glucose 110 H POC Glucose Calcium 7.8 L POC WB Ioniz Calcium AST ALT Total Protein Albumin Procalcitonin 0.11 H Urine Protein Urine Occult Blood Urine Mucus 09/02/22 09/02/22 09/02/22 23:30 23:15 23:08 RDW 14.9 H Immature Gran % (Auto) 0.6 H Lymph % (Auto) 13.7 L [place] % (Auto) 13.1 H Lymph # (Auto) 1.20 L [place] # (Auto) 1.15 H Immature Gran # D-Dimer POC pCO2 POC pO2 POC HCO3 POC Total CO2 POC ABG Base Excess POC VBG pH 7.44 H POC VBG HCO3 28.2 H POC VBG Base Excess 4.0 H* Hgb O2 Saturation POC Potassium Carbon Dioxide POC BUN Glucose POC Glucose Calcium POC WB Ioniz Calcium AST ALT Total Protein Albumin Procalcitonin Urine Protein 100 A Urine Occult Blood Small A Urine Mucus Few A 09/02/22 22:50 RDW Immature Gran % (Auto) Lymph % (Auto) [place] % (Auto) Lymph # (Auto) [place] # (Auto) Immature Gran # D-Dimer POC pCO2 POC pO2 POC HCO3 POC Total CO2 POC ABG Base Excess POC VBG pH POC VBG HCO3 POC VBG Base Excess Hgb O2 Saturation POC Potassium 5.3 H Carbon Dioxide POC BUN 21 H Glucose POC Glucose 119 H Calcium POC WB Ioniz Calcium 1.03 L AST ALT Total Protein Albumin Procalcitonin Urine Protein Urine Occult Blood Urine Mucus Meds: Medications Acetaminophen (Acetaminophen 325 Mg Tablet) 650 mg PO Q6HP PRN; Protocol PRN Reason: Per Pain Protocol/Fever > 101 Last Admin: 09/04/22 09:00 Dose: 650 mg Albuterol/Ipratropium (Ipratropium/Albuterol 3 Ml Ampul.Neb) 3 ml NEB Q6HRT [facility] Last Admin: 09/05/22 05:00 Dose: 3 ml Artificial Tears (Carboxymethylcellulose Sodium 1 Each Droper.Gel) 1 each OU BID [facility] Last Admin: 09/04/22 21:46 Dose: 1 each Atorvastatin Calcium (Atorvastatin 40 Mg Tablet) 40 mg PO HS [facility] Last Admin: 09/04/22 21:46 Dose: 40 mg Budesonide (Budesonide 0.5 Mg/2 Ml Ampul.Neb) 0.5 mg NEB Q12 [facility] Last Admin: 09/04/22 20:01 Dose: 0.5 mg Bupropion HCl (Bupropion 150 Mg Tab.Xl.24h) 150 mg PO DAILY [facility] Last Admin: 09/04/22 08:18 Dose: 150 mg Calcium Carbonate/Glycine (Calcium (Oyster Shell) 500 Mg Tablet) 500 mg PO DAILY [facility] Last Admin: 09/04/22 08:20 Dose: 500 mg Clotrimazole (Clotrimazole Crm 1% 1 Dose Tube) 1 dose TOPICAL BID [facility] Last Admin: 09/04/22 21:39 Dose: Not Given Colchicine (Colchicine 0.6 Mg Capsule) 0.6 mg PO QDAY [facility] Last Admin: 09/04/22 08:18 Dose: 0.6 mg Dexamethasone (Dexamethasone 4 Mg Tablet) 6 mg PO DAILY [facility] Last Admin: 09/04/22 08:18 Dose: 6 mg Dextrose (Dextrose 50% 50 Ml Vial) 0 ml IV UD PRN PRN Reason: Per Sliding Scale Diagnostic Test (Pha) (Accu-Chek 1 Each Strip) 1 each FS ACHS [facility] Last Admin: 09/04/22 21:38 Dose: 1 each Docusate Sodium (Docusate Sodium 100 Mg Capsule) 100 mg PO BID [facility] Last Admin: 09/04/22 21:21 Dose: Not Given Enoxaparin Sodium (Enoxaparin 40 Mg/0.4 Ml Syringe) 40 mg SQ DAILY [facility] Last Admin: 09/04/22 08:18 Dose: 40 mg Furosemide (Furosemide 40 Mg/4 Ml Vial) 40 mg IV ONCE ONE Stop: 09/05/22 05:23 Last Admin: 09/05/22 05:20 Dose: 40 mg Glucose (Dextrose 31 Gm Oral.Susp) 15 gm PO PRN PRN PRN Reason: Hypoglycemia Hydralazine HCl (Hydralazine 20 Mg/Ml Vial) 10 mg IV Q4-6HP PRN PRN Reason: Hypertension REMDESIVIR 100 mg/ Sodium (Chloride) 250 mls @ 500 mls/hr IV Q24H [facility] Stop: 09/06/22 19:00 Last Infusion: 09/04/22 10:30 Dose: Infused Ibuprofen (Ibuprofen 600 Mg Tablet) 600 mg PO QIDP PRN; Protocol PRN Reason: Per Pain Protocol/Fever > 101 Insulin Human Lispro (Insulin Lispro 1 Unit/0.01 Ml Unit) 0 unit SQ ACHS [facility]; Protocol Last Admin: 09/04/22 21:39 Dose: Not Given Lisinopril (Lisinopril 10 Mg Tablet) 10 mg PO DAILY [facility] Last Admin: 09/04/22 09:26 Dose: 10 mg Lorazepam (Lorazepam 2 Mg/Ml Vial) 1 mg IV Q6HP PRN PRN Reason: ANXIETY/SEDATION Last Admin: 09/05/22 05:05 Dose: 1 mg Lorazepam (Lorazepam 2 Mg/Ml Vial) 1 mg IV ONCE ONE Stop: 09/05/22 05:23 Last Admin: 09/05/22 05:25 Dose: 1 mg Magnesium Oxide (Magnesium Oxide 400 Mg Tablet) 400 mg PO DAILY [facility] Last Admin: 09/04/22 08:18 Dose: 400 mg Metoprolol Succinate (Metoprolol Succinate 25 Mg Tab.Xl.24h) 12.5 mg PO DAILY [facility] Last Admin: 09/04/22 08:19 Dose: 12.5 mg Metoprolol Tartrate (Metoprolol Tartrate 5 Mg/5 Ml Vial) 5 mg IV Q5M PRN PRN Reason: HR > 130 Stop: 09/05/22 05:41 Last Admin: 09/05/22 05:25 Dose: 5 mg Ondansetron HCl (Ondansetron 4 Mg/2 Ml Vial) 4 mg IV Q6HP PRN PRN Reason: Nausea And Vomiting Oxybutynin Chloride (Oxybutynin Chloride 5 Mg Tablet) 5 mg PO QDAY [facility] Last Admin: 09/04/22 08:19 Dose: 5 mg Senna (Sennosides 1 Tablet) 2 tab PO HS [facility] Last Admin: 09/04/22 21:40 Dose: Not Given Sodium Chloride (0.9 % Sodium Chloride 10 Ml Syringe) 10 ml IV Q8 [facility] Last Admin: 09/05/22 05:05 Dose: 10 ml Vitamin B Complex (Vitamin B Complex 1 Capsule) 1 cap PO DAILY [facility] Last Admin: 09/04/22 08:18 Dose: 1 cap Vitamin D (Vitamin D3 25 Mcg Tablet) 50 mcg PO DAILY [facility] Last Admin: 09/04/22 08:18 Dose: 50 mcg A/P Assessment and plan (1) T2DM (type 2 diabetes mellitus): Status: Acute (2) Essential hypertension: Status: Acute (3) Hyperlipidemia associated with type 2 diabetes mellitus: Status: Acute (4) Depression: Status: Acute (5) Pneumonia due to 2019-nCoV: Status: Acute (6) Delirium: Status: Acute (7) Acute respiratory failure with hypoxia: Status: Acute Narrative A/P Narrative: Assessment and Plans: 1. CoVID pneumonia with associated acute respiratory distress with hypoxia: Inpatient ICU Isolation: airborne and contact Supplemental oxygen therapy, currently on BiPAP Blood cultures X2 Dexamethasone Remdisivir DuoNEB Pulmicort Vancomycin Zosyn Saline lock, Lasix 40mg IV once Physical therapy evaluation and treatment Occupational therapy evaluation and treatment CT chest angiogram: negative for pulmonary embolism, worsening bilateral pneumonia Repeat CXR/VBG Will touch base with family regarding prognosis/goal of care 2. Acute delirium: DDx: results of high dose steriod Dexamethasone, acute intracranial pathologies such as CVA, secondary to CoVID pneumonia CT head w/o Treat CoVID pneumonia, see #1 Ativan IV PRN agitation/anxiety 3. T2DM: HgA1c Insulin Lispro SSI AC HS Accu Check AC HS Hypoglycemia protocol Diabetic diet 4. Essential HTN: Toprol XL Lisinopril 5. Hyperlipidemia: Holding Lipitor due to worsening mentation 6. Depression: Holding Wellbutrin due to worsening mentation GI ppx: Protonix DVT ppx: Lovenox Code status: Full Prognosis: extremely guarded Disposition: inpatient ICU; PT OT Critical Care Time: 60min Time Spent With Patient Time: Total time spent is greater than 50% in coordination of care (as documented) at patient's floor/unit and/or counseling patient: Critical Care Time: Yes Total Critical Care Time: 60 QUALITY Stroke Symptom Onset Unknown: No VTE Deep Vein Thrombosis/Pulmonary Embolism Present on Admission: No
[2022-09-05 06:59] LABS: ALT/SGPT 83 U/L (<40); AST/SGOT 78 U/L (<32); Albumin 2.4 gm/dL (3.2-5.2); Albumin/Globulin Ratio 0.8 (1.0-2.3); Alkaline Phosphatase 73 U/L (39-117); Bilirubin,Total 0.2 mg/dL (0.1-1.0); Blood Urea Nitrogen 17 mg/dL (8-23); Calcium 7.6 mg/dL (8.6-10.4); Carbon Dioxide 13 mmol/L (22-30); Chloride 104 mmol/L (96-108); Globulin 3.2 gm/dL (2.2-3.7); Glomerular Filtration Rate 84; Glucose 214 mg/dL (70-105)
[2022-09-05] MEDS: INSULIN LISPRO 1 UNIT/0.01 ML UNIT SQ SCH ×4 (06:59→20:57)
[2022-09-05 07:01] LABS: ABG Methemoglobin 0.1 % (0.4-1.5); Total Hemoglobin 15.4 gm/Dl (12.0-15.0); VBG Base Excess -11 (-2-3); VBG HCO3 15.2 mmol/L (24.0-28.0); VBG Oxygen Saturation 85.3 % (40.0-70.0); VBG PCO2 36.2 mmHg (41.0-51.0); VBG PH 7.24 U (7.32-7.42); VBG PO2 78.8 mmHg (25.0-40.0); VBG Total CO2 16.3 mmol/L (25.0-29.0)
[2022-09-05 07:06] LABS: Basophils # (Auto) 0.12 K/mcL (0.00-0.30); Basophils % (Auto) 0.7 % (0.0-2.0); Eosinophils # (Auto) 0.02 K/mcL (0.00-0.70); Eosinophils % (Auto) 0.1 % (0.0-7.0); Hemoglobin 13.5 g/dL (11.2-15.7); Lymphocytes # (Auto) 4.21 K/mcL (1.50-4.80); Mean Cell Volume 101.5 fL (80.0-100.0); Mean Corpuscular HGB Conc 29.3 g/dL (31.0-36.0); Monocytes # (Auto) 1.13 K/mcL (0.10-0.90); Monocytes % (Auto) 6.2 % (1.0-12.0); Neutrophils % (Auto) 68.9 % (38.0-78.0); Platelet Count 467 K/mcL (140-440); RBC 4.53 M/mcL (3.59-5.38); Red Cell Distribution Width 15.9 % (11.5-14.5); WBC 18.3 K/mcL (4.5-11.0)
[2022-09-05] MEDS: METOPROLOL SUCCINATE 25 MG TAB.XL.24H PO SCH (07:54)
[2022-09-05] MEDS: CLOTRIMAZOLE CRM 1% 1 DOSE TUBE TOPICAL SCH ×2 (07:55→20:47)
[2022-09-05] MEDS: DOCUSATE SODIUM 100 MG CAPSULE PO SCH ×2 (07:55→20:47)
[2022-09-05 08:01] LABS: ABG Methemoglobin 0.3 % (0.4-1.5); Total Hemoglobin 14.9 gm/Dl (12.0-15.0); VBG Base Excess -7 (-2-3); VBG HCO3 20.6 mmol/L (24.0-28.0); VBG Oxygen Saturation 74.4 % (40.0-70.0); VBG PH 7.24 U (7.32-7.42); VBG PO2 47.4 mmHg (25.0-40.0); VBG Total CO2 22.1 mmol/L (25.0-29.0)
[2022-09-05] MEDS: DEXAMETHASONE 10 MG/ML VIAL IV SCH (08:19)
[2022-09-05] MEDS: PANTOPRAZOLE 40 MG VIAL IV SCH (08:19)
[2022-09-05] MEDS: PIPERACILLIN SODIUM/TAZOBACTAM 3.375 GM in DEXTROSE 5% IN WATER 50 ML IV SCH ×4 (08:20→23:53)
[2022-09-05] MEDS: ENOXAPARIN 40 MG/0.4 ML SYRINGE SQ SCH (08:20)
[2022-09-05] MEDS: BUDESONIDE 0.5 MG/2 ML AMPUL.NEB NEB SCH ×2 (08:53→19:30)
[2022-09-05] MEDS: CARBOXYMETHYLCELLULOSE SODIUM 1 EACH DROPER.GEL OU SCH ×2 (08:57→21:01)
[2022-09-05] MEDS: VANCOMYCIN 1,250 MG in 0.9 % SODIUM CHLORIDE 500 ML IV SCH ×2 (08:58→20:57)
[2022-09-05] MEDS: REMDESIVIR 100 MG in 0.9 % SODIUM CHLORIDE 250 ML IV SCH (08:58)
--- NOTE | 2022-09-05 09:11 | XRay Report ---
HISTORY: Pulmonary infiltrates with increasing shortness of breath FINDINGS: There is severe alveolar infiltrates throughout both lungs with the greatest involvement of the right upper lobe and centrally in the left lung. These have become worse since the chest CT performed yesterday. Lung volumes are normal. There is no pneumothorax or pleural effusion. Heart size is within normal limits. IMPRESSION: Worsening bilateral pneumonia Interpreted and Authenticated by: Dallas Lee 09/05/22
[2022-09-05] MEDS ORDERED: BACLOFEN 10 MG TABLET PO PRN (11:32)
[2022-09-05] MEDS: IBUPROFEN 600 MG TABLET PO PRN (11:42)
[2022-09-05] MEDS ORDERED: FUROSEMIDE 20 MG/2 ML VIAL IV ONE (15:13)
[2022-09-05] MEDS: SENNOSIDES 1 TABLET PO SCH (20:47)
[2022-09-06] MEDS: IPRATROPIUM/ALBUTEROL 3 ML AMPUL.NEB NEB SCH ×4 (01:01→19:10)
[2022-09-06] MEDS: PIPERACILLIN SODIUM/TAZOBACTAM 3.375 GM in DEXTROSE 5% IN WATER 50 ML IV SCH ×4 (05:53→23:37)
[2022-09-06] MEDS: 0.9 % SODIUM CHLORIDE 10 ML SYRINGE IV SCH ×3 (05:53→20:11)
[2022-09-06 06:41] LABS: Basophils # (Auto) 0.01 K/mcL (0.00-0.30); Basophils % (Auto) 0.1 % (0.0-2.0); Eosinophils # (Auto) 0.01 K/mcL (0.00-0.70); Eosinophils % (Auto) 0.1 % (0.0-7.0); Hemoglobin 12.3 g/dL (11.2-15.7); Lymphocytes # (Auto) 1.53 K/mcL (1.50-4.80); Lymphocytes % (Auto) 15.1 % (15.5-49.0); Mean Cell Volume 89.9 fL (80.0-100.0); Mean Corpuscular HGB Conc 31.5 g/dL (31.0-36.0); Mean Platelet Volume 10.2 fL (8.8-12.5); Monocytes # (Auto) 0.83 K/mcL (0.10-0.90); Monocytes % (Auto) 8.2 % (1.0-12.0); Platelet Count 408 K/mcL (140-440); RBC 4.34 M/mcL (3.59-5.38); Red Cell Distribution Width 15.1 % (11.5-14.5); WBC 10.1 K/mcL (4.5-11.0)
[2022-09-06] MEDS: BUDESONIDE 0.5 MG/2 ML AMPUL.NEB NEB SCH ×2 (07:00→19:10)
[2022-09-06 07:06] LABS: ALT/SGPT 68 U/L (<40); AST/SGOT 52 U/L (<32); Albumin 2.5 gm/dL (3.2-5.2); Albumin/Globulin Ratio 0.9 (1.0-2.3); Alkaline Phosphatase 59 U/L (39-117); Bilirubin,Total 0.2 mg/dL (0.1-1.0); Blood Urea Nitrogen 25 mg/dL (8-23); Calcium 7.7 mg/dL (8.6-10.4); Carbon Dioxide 21 mmol/L (22-30); Chloride 108 mmol/L (96-108); Globulin 2.9 gm/dL (2.2-3.7); Glomerular Filtration Rate 71; Glucose 90 mg/dL (70-105)
[2022-09-06 07:49] LABS: Neutrophils % (Auto) 75.7 % (38.0-78.0)
[2022-09-06] MEDS: CLOTRIMAZOLE CRM 1% 1 DOSE TUBE TOPICAL SCH ×2 (08:07→19:43)
[2022-09-06] MEDS: INSULIN LISPRO 1 UNIT/0.01 ML UNIT SQ SCH ×4 (08:07→20:10)
[2022-09-06] MEDS: DOCUSATE SODIUM 100 MG CAPSULE PO SCH ×2 (08:08→19:43)
[2022-09-06] MEDS: PANTOPRAZOLE 40 MG VIAL IV SCH (08:17)
[2022-09-06] MEDS: ENOXAPARIN 40 MG/0.4 ML SYRINGE SQ SCH (08:47)
[2022-09-06] MEDS: DEXAMETHASONE 10 MG/ML VIAL IV SCH (08:47)
[2022-09-06] MEDS: CARBOXYMETHYLCELLULOSE SODIUM 1 EACH DROPER.GEL OU SCH ×2 (08:50→20:11)
[2022-09-06] MEDS: REMDESIVIR 100 MG in 0.9 % SODIUM CHLORIDE 250 ML IV SCH (10:11)
[2022-09-06] MEDS: VANCOMYCIN 1,250 MG in 0.9 % SODIUM CHLORIDE 500 ML IV SCH (10:12)
--- NOTE | 2022-09-06 10:28 | Internal Med Progress Note ---
SUBJECTIVE Subjective Patient information: Note initiated : 09/06/22 at 10:26 am Service Date, if different from initiated Date: [] Patient: Felicia Grewal 77 y/o F admitted on 09/03/22 for Shortness of breath. Chief Complaint: [] Interval history: 09/04: Patient have worsening mentations with agitations and alert and oriented x1 to person only since this morning, new finding. Her oxygen requirement also increased from 1 L/min to 5 L/min via oxygen mask. Tachycardia and tachypnea also noted. Subjective not obtained due to clinical situations. Will order CT of the head without contrast to rule out acute intracranial pathologies. Will order CT chest angiogram to rule out pulmonary embolism and any other acute intrathoracic pathologies to account for the worsening of her respiratory status. Continue supplemental oxygen therapy meanwhile. Continue dexamethasone and remdesivir for treatment of COVID-pneumonia. Continue physical therapy and Occupational Therapy evaluation and treatment for placement planning. 09/05: CT chest angiogram: negative for pulmonary embolism, worsening bilateral pneumonia. Patient deteriorate overnight, increasing oxygen requirement, and became very confused and not oriented. Placed on nonrebreather, then BiPAP. Transfer to inpatient ICU. Repeat CXR Repeat VBG Blood cultures X2, then Vancomycin/Zosyn Saline lock, Lasix 40mg IV once Ativan 1mg IV q6h PRN anxiety/agitation Continue Dexamethasone/Remdesivir Will touch base with family regarding prognosis/goal of care 09/06: Afebrile overnight. MRSA screening negative. All cultures no growth to date. Patient still on BiPAP 18/8 cmH2O RR12 FiO2 60%. Urine output ~30cc/hr/ Improving degree of shortness of breath. Denies cough or wheezing. Denies fever, chills, or sweating. Stays in ICU. d/c Vancomycin, continue Zosyn. Continue Dexamethasone/Remdesivir Continue to wean down/off BiPAP as tolerating. Heated high flow oxygen when f eeding patient. Physical and occupational therapies evaluation and treatment. Constitutional Vitals: Vital Signs Temp Pulse Resp BP Pulse Ox O2 Del Method O2 Flow Rate 36.6 C 92 H 20 149/68 93 30 09/06/22 08:09 09/06/22 10:25 09/06/22 10:25 09/06/22 10:01 09/06/22 10:25 09/06/22 10:25 09/06/22 10:25 Period Temp Pulse Resp BP Sys/[place] Pulse Ox O2 Del Method O2 Flow Rate Last 24 Hr 36.1 C-36.7 C 45-103 13-26 102-156/48-88 89-98 BiPAP-Heated High Flow Nasal Ca 30-65 Intake and Output 09/05/22 09/06/22 09/06/22 19:59 03:59 11:59 Intake Total 50 550 200 Output Total 1212 277 228 Balance -1162 273 -28 Weight 87.09 kg Intake & Output: Intake & Output 09/05/22 09/06/22 09/06/22 19:59 03:59 11:59 Intake Total 50 550 200 Output Total 1212 277 228 Balance -1162 273 -28 Weight 87.09 kg Intake: IV 50 550 50 Zosyn 3.375 gm In Dextrose 5% 50 50 50 in Water 50 ml @ 100 mls/hr IV Q6H [facility] Rx#:[id number] Vancomycin 1,250 mg In Sodium 500 Chloride 0.9% 500 ml @ 333.3 mls/hr IV Q12H [facility] Rx#: [id number] Oral 150 Output: Urine Catheter Amount 1212 277 228 Other: Urine Appearance Clear Clear Clear Uretheral (Kilpatrick) Sediment Clear Urine Color Yellow Dark Yellow Yellow Pale Uretheral (Kilpatrick) Tea Colored Dark Yellow Urine Odor Normal Normal Normal Uretheral (Kilpatrick) Normal Normal Stool Size Small Stool Color Brown Stool Consistency Liquid Watery # Bowel Movements 0 1 General appearance: cooperative and no acute distress Head Head exam: Present atraumatic and normal inspection Eye Eye exam: Present normal appearance ENT ENT exam: Present mucous membranes moist, normal exam and normal external ear exam Additional comments: BiPAP in place Neck Neck exam: Present normal inspection Respiratory Respiratory exam: Present normal respiratory exam and rhonchi Cardiovascular Cardiovascular exam: Present normal rate and rhythm GI/Abdominal GI/Abdominal exam: Present normal bowel sounds Additional comments: Kilpatrick catheter in place Back Exam Back exam: Present normal inspection Neurological Exam Neurological exam: Present alert and oriented X3 Skin Skin exam: Present intact and warm OBJ DATA Labs CBC & Chem 7: 09/06/22 05:31 09/06/22 05:31 Labs: Abnormal Lab Results 09/06/22 09/06/22 09/05/22 05:31 05:31 07:36 WBC Hct MCV MCHC RDW 15.1 H Plt Count Immature Gran % (Auto) 0.8 H Lymph % (Auto) 15.1 L [place] # (Auto) Immature Gran # 0.08 H Absolute Neutrophils POC pCO2 POC pO2 POC HCO3 POC Total CO2 POC ABG Base Excess ABG Methemoglobin 0.3 L VBG pH 7.24 L VBG pCO2 VBG pO2 47.4 H VBG HCO3 20.6 L VBG Total CO2 22.1 L VBG O2 Saturation 74.4 H VBG Base Excess -7 L Hgb O2 Saturation Carboxyhemoglobin 3.8 H Total Hemoglobin Carbon Dioxide 21 L Anion Gap BUN 25 H Glucose Calcium 7.7 L AST 52 H ALT 68 H Total Protein 5.4 L Albumin 2.5 L Albumin/Globulin Ratio 0.9 L 09/05/22 09/05/22 09/05/22 06:12 06:12 06:12 WBC 18.3 H Hct 46.0 H MCV 101.5 H MCHC 29.3 L RDW 15.9 H Plt Count 467 H Immature Gran % (Auto) 1.1 H Lymph % (Auto) [place] # (Auto) 1.13 H Immature Gran # 0.20 H Absolute Neutrophils 12.60 H POC pCO2 POC pO2 POC HCO3 POC Total CO2 POC ABG Base Excess ABG Methemoglobin 0.1 L VBG pH 7.24 L VBG pCO2 36.2 L VBG pO2 78.8 H VBG HCO3 15.2 L VBG Total CO2 16.3 L VBG O2 Saturation 85.3 H VBG Base Excess -11 L Hgb O2 Saturation Carboxyhemoglobin 8.8 H Total Hemoglobin 15.4 H Carbon Dioxide 13 L Anion Gap 17.0 H BUN Glucose 214 H Calcium 7.6 L AST 78 H ALT 83 H Total Protein 5.6 L Albumin 2.4 L Albumin/Globulin Ratio 0.8 L 09/04/22 09/04/22 09/04/22 09:27 05:26 05:26 WBC Hct MCV MCHC RDW 15.1 H Plt Count Immature Gran % (Auto) 0.9 H Lymph % (Auto) [place] # (Auto) 1.04 H Immature Gran # 0.09 H Absolute Neutrophils POC pCO2 26.9 L POC pO2 52 L POC HCO3 17.1 L POC Total CO2 18.0 L POC ABG Base Excess -8.0 L ABG Methemoglobin VBG pH VBG pCO2 VBG pO2 VBG HCO3 VBG Total CO2 VBG O2 Saturation VBG Base Excess Hgb O2 Saturation 87.0 L Carboxyhemoglobin Total Hemoglobin Carbon Dioxide Anion Gap BUN Glucose Calcium 7.8 L AST 85 H ALT 90 H Total Protein 5.7 L Albumin 2.8 L Albumin/Globulin Ratio Meds: Medications Albuterol/Ipratropium (Ipratropium/Albuterol 3 Ml Ampul.Neb) 3 ml NEB Q6HRT [facility] Last Admin: 09/06/22 07:00 Dose: 3 ml Artificial Tears (Carboxymethylcellulose Sodium 1 Each Droper.Gel) 1 each OU BID [facility] Last Admin: 09/06/22 08:50 Dose: 1 each Baclofen (Baclofen 10 Mg Tablet) 10 mg PO TIDP PRN PRN Reason: Muscle Spasticity Last Admin: 09/05/22 12:10 Dose: 10 mg Budesonide (Budesonide 0.5 Mg/2 Ml Ampul.Neb) 0.5 mg NEB Q12 [facility] Last Admin: 09/06/22 07:00 Dose: 0.5 mg Clotrimazole (Clotrimazole Crm 1% 1 Dose Tube) 1 dose TOPICAL BID [facility] Last Admin: 09/06/22 08:07 Dose: Not Given Dexamethasone (Dexamethasone 10 Mg/Ml Vial) 6 mg IV DAILY [facility] Last Admin: 09/06/22 08:47 Dose: 6 mg Dextrose (Dextrose 50% 50 Ml Vial) 0 ml IV UD PRN PRN Reason: Per Sliding Scale Diagnostic Test (Pha) (Accu-Chek 1 Each Strip) 1 each FS ACHS [facility] Last Admin: 09/06/22 08:07 Dose: 1 each Docusate Sodium (Docusate Sodium 100 Mg Capsule) 100 mg PO BID [facility] Last Admin: 09/06/22 08:08 Dose: Not Given Enoxaparin Sodium (Enoxaparin 40 Mg/0.4 Ml Syringe) 40 mg SQ DAILY [facility] Last Admin: 09/06/22 08:47 Dose: 40 mg Glucose (Dextrose 31 Gm Oral.Susp) 15 gm PO PRN PRN PRN Reason: Hypoglycemia Hydralazine HCl (Hydralazine 20 Mg/Ml Vial) 10 mg IV Q4-6HP PRN PRN Reason: Hypertension REMDESIVIR 100 mg/ Sodium (Chloride) 250 mls @ 500 mls/hr IV Q24H [facility] Stop: 09/06/22 19:00 Last Admin: 09/06/22 10:11 Dose: 500 mls/hr Piperacillin Sod/Tazobactam (Sod 3.375 gm/ Dextrose) 50 mls @ 100 mls/hr IV Q6H [facility]; Protocol Last Infusion: 09/06/22 06:35 Dose: Infused Ibuprofen (Ibuprofen 600 Mg Tablet) 600 mg PO QIDP PRN; Protocol PRN Reason: Per Pain Protocol/Fever > 101 Last Admin: 09/05/22 11:42 Dose: 600 mg Insulin Human Lispro (Insulin Lispro 1 Unit/0.01 Ml Unit) 0 unit SQ ACHS [facility]; Protocol Last Admin: 09/06/22 08:07 Dose: Not Given Lorazepam (Lorazepam 2 Mg/Ml Vial) 1 mg IV Q4-6HP PRN PRN Reason: ANXIETY/SEDATION Ondansetron HCl (Ondansetron 4 Mg/2 Ml Vial) 4 mg IV Q6HP PRN PRN Reason: Nausea And Vomiting Pantoprazole Sodium (Pantoprazole 40 Mg Vial) 40 mg IV QAMAC [facility] Last Admin: 09/06/22 08:17 Dose: 40 mg Senna (Sennosides 1 Tablet) 2 tab PO HS [facility] Last Admin: 09/05/22 20:47 Dose: Not Given Sodium Chloride (0.9 % Sodium Chloride 10 Ml Syringe) 10 ml IV Q8 [facility] Last Admin: 09/06/22 05:53 Dose: 10 ml ABG Interpretation ABG results: 09/05/22 09/05/22 06:12 07:36 ABG Methemoglobin 0.1 L 0.3 L VBG pH 7.24 L 7.24 L VBG pCO2 36.2 L 49.0 VBG pO2 78.8 H 47.4 H VBG HCO3 15.2 L 20.6 L VBG Total CO2 16.3 L 22.1 L VBG O2 Saturation 85.3 H 74.4 H VBG Base Excess -11 L -7 L A/P Assessment and plan (1) T2DM (type 2 diabetes mellitus): Status: Acute (2) Essential hypertension: Status: Acute (3) Hyperlipidemia associated with type 2 diabetes mellitus: Status: Acute (4) Depression: Status: Acute (5) Pneumonia due to 2019-nCoV: Status: Acute (6) Delirium: Status: Acute (7) Acute respiratory failure with hypoxia: Status: Acute Narrative A/P Narrative: Assessment and Plans: 1. CoVID pneumonia with associated acute respiratory distress with hypoxia: Inpatient ICU Isolation: airborne and contact Supplemental oxygen therapy, currently on BiPAP 18/8 cmH2O RR12 FiO2 60%. Heated high flow oxygen while feeding patient Blood cultures X2, no growth to date Dexamethasone Remdisivir DuoNEB Pulmicort MRSA screening negative, d/c Vancomycin Continue Zosyn Saline lock Physical therapy evaluation and treatment Occupational therapy evaluation and treatment CT chest angiogram: negative for pulmonary embolism, worsening bilateral pneumonia 2. Acute delirium: DDx: results of high dose steriod Dexamethasone, acute intracranial pathologies such as CVA, secondary to CoVID pneumonia CT head w/o: no acute intracranial abnormalities Treat CoVID pneumonia, see #1 Ativan IV PRN agitation/anxiety 3. T2DM: HgA1c Insulin Lispro SSI AC HS Accu Check AC HS Hypoglycemia protocol Diabetic diet 4. Essential hypertension: Resume Toprol XL Resume Lisinopril 5. Hyperlipidemia: Holding Lipitor due to worsening mentation 6. Depression: Holding Wellbutrin due to worsening mentation GI ppx: Protonix DVT ppx: Lovenox Code status: Full Prognosis: Guarded Disposition: inpatient ICU; PT OT Critical Care Time: 45min Time Spent With Patient Time: Total time spent is greater than 50% in coordination of care (as documented) at patient's floor/unit and/or counseling patient: Critical Care Time: Yes Total Critical Care Time: 45 QUALITY Stroke Symptom Onset Unknown: No VTE Deep Vein Thrombosis/Pulmonary Embolism Present on Admission: No
[2022-09-06] MEDS: LISINOPRIL 10 MG TABLET PO SCH (11:28)
[2022-09-06] MEDS: METOPROLOL SUCCINATE 25 MG TAB.XL.24H PO SCH (11:28)
[2022-09-06] MEDS: IBUPROFEN 600 MG TABLET PO PRN (16:25)
[2022-09-06] MEDS: SENNOSIDES 1 TABLET PO SCH (19:43)
[2022-09-07] MEDS: IPRATROPIUM/ALBUTEROL 3 ML AMPUL.NEB NEB SCH ×4 (00:59→19:25)
[2022-09-07] MEDS: PIPERACILLIN SODIUM/TAZOBACTAM 3.375 GM in DEXTROSE 5% IN WATER 50 ML IV SCH ×4 (05:55→23:49)
[2022-09-07] MEDS: 0.9 % SODIUM CHLORIDE 10 ML SYRINGE IV SCH ×4 (05:56→21:14)
[2022-09-07 07:17] LABS: Basophils # (Auto) 0.02 K/mcL (0.00-0.30); Basophils % (Auto) 0.2 % (0.0-2.0); Eosinophils # (Auto) 0.01 K/mcL (0.00-0.70); Eosinophils % (Auto) 0.1 % (0.0-7.0); Hematocrit 37.1 % (34.1-44.9); Lymphocytes # (Auto) 2.19 K/mcL (1.50-4.80); Lymphocytes % (Auto) 19.9 % (15.5-49.0); Mean Cell Volume 89.4 fL (80.0-100.0); Mean Corpuscular HGB Conc 32.3 g/dL (31.0-36.0); Mean Platelet Volume 9.9 fL (8.8-12.5); Monocytes # (Auto) 0.82 K/mcL (0.10-0.90); Monocytes % (Auto) 7.4 % (1.0-12.0); Neutrophils % (Auto) 70.9 % (38.0-78.0); Platelet Count 501 K/mcL (140-440); RBC 4.15 M/mcL (3.59-5.38); Red Cell Distribution Width 15.6 % (11.5-14.5)
[2022-09-07] MEDS: BUDESONIDE 0.5 MG/2 ML AMPUL.NEB NEB SCH ×2 (07:22→19:25)
[2022-09-07 07:26] LABS: ALT/SGPT 50 U/L (<40); AST/SGOT 30 U/L (<32); Albumin 2.3 gm/dL (3.2-5.2); Albumin/Globulin Ratio 0.8 (1.0-2.3); Alkaline Phosphatase 57 U/L (39-117); Bilirubin,Total 0.2 mg/dL (0.1-1.0); Blood Urea Nitrogen 22 mg/dL (8-23); Calcium 7.7 mg/dL (8.6-10.4); Carbon Dioxide 22 mmol/L (22-30); Chloride 110 mmol/L (96-108); Globulin 2.8 gm/dL (2.2-3.7); Glomerular Filtration Rate 88; Glucose 91 mg/dL (70-105)
[2022-09-07] MEDS: METOPROLOL SUCCINATE 25 MG TAB.XL.24H PO SCH (07:43)
[2022-09-07] MEDS: LISINOPRIL 10 MG TABLET PO SCH (07:43)
[2022-09-07] MEDS: PANTOPRAZOLE 40 MG VIAL IV SCH (07:43)
[2022-09-07] MEDS: ENOXAPARIN 40 MG/0.4 ML SYRINGE SQ SCH (07:43)
[2022-09-07] MEDS: DEXAMETHASONE 10 MG/ML VIAL IV SCH (07:43)
[2022-09-07] MEDS: CLOTRIMAZOLE CRM 1% 1 DOSE TUBE TOPICAL SCH ×2 (07:44→21:13)
[2022-09-07] MEDS: INSULIN LISPRO 1 UNIT/0.01 ML UNIT SQ SCH ×4 (08:36→21:12)
[2022-09-07] MEDS: DOCUSATE SODIUM 100 MG CAPSULE PO SCH ×2 (08:41→21:12)
--- NOTE | 2022-09-07 10:18 | Internal Med Progress Note ---
SUBJECTIVE Subjective Patient information: Note initiated : 09/07/22 at 10:16 am Service Date, if different from initiated Date: [] Patient: Felicia Grewal 77 y/o F admitted on 09/03/22 for Shortness of breath. Chief Complaint: [] Interval history: 09/04: Patient have worsening mentations with agitations and alert and oriented x1 to person only since this morning, new finding. Her oxygen requirement also increased from 1 L/min to 5 L/min via oxygen mask. Tachycardia and tachypnea also noted. Subjective not obtained due to clinical situations. Will order CT of the head without contrast to rule out acute intracranial pathologies. Will order CT chest angiogram to rule out pulmonary embolism and any other acute intrathoracic pathologies to account for the worsening of her respiratory status. Continue supplemental oxygen therapy meanwhile. Continue dexamethasone and remdesivir for treatment of COVID-pneumonia. Continue physical therapy and Occupational Therapy evaluation and treatment for placement planning. 09/05: CT chest angiogram: negative for pulmonary embolism, worsening bilateral pneumonia. Patient deteriorate overnight, increasing oxygen requirement, and became very confused and not oriented. Placed on nonrebreather, then BiPAP. Transfer to inpatient ICU. Repeat CXR Repeat VBG Blood cultures X2, then Vancomycin/Zosyn Saline lock, Lasix 40mg IV once Ativan 1mg IV q6h PRN anxiety/agitation Continue Dexamethasone/Remdesivir Will touch base with family regarding prognosis/goal of care 09/06: Afebrile overnight. MRSA screening negative. All cultures no growth to date. Patient still on BiPAP 18/8 cmH2O RR12 FiO2 60%. Urine output ~30cc/hr/ Improving degree of shortness of breath. Denies cough or wheezing. Denies fever, chills, or sweating. Stays in ICU. d/c Vancomycin, continue Zosyn. Continue Dexamethasone/Remdesivir Continue to wean down/off BiPAP as tolerating. Heated high flow oxygen when f eeding patient. Physical and occupational therapies evaluation and treatment. 09/07: Afebrile overnight. All cultures no growth to date. Patient tolerated proning overnight. Currently on high flow oxygen 35L/min FiO2 100%. Improving degree of shortness of breath. Poor appetite. Poor energy level. Denies fever, chills, or sweating. Stays in ICU. Proning as tolerated Continue Zosyn Continue Dexamethasone/Remdesivir Continue to wean oxygen therapy as tolerating Physical and occupational therapies evaluation and treatment Constitutional Vitals: Vital Signs Temp Pulse Resp BP Pulse Ox O2 Del Method O2 Flow Rate 36.1 C 105 H 27 H 148/62 89 L 35 09/07/22 08:00 09/07/22 10:11 09/07/22 10:11 09/07/22 10:11 09/07/22 10:11 09/07/22 10:11 09/07/22 10:11 Period Temp Pulse Resp BP Sys/[place] Pulse Ox O2 Del Method O2 Flow Rate Last 24 Hr 36.1 C-37.3 C 84-110 15-27 111-172/62-90 89-99 Heated High Flow Nasal Ca-High Flow Nasal Cannula 30-35 Intake and Output 09/06/22 09/07/22 09/07/22 19:59 03:59 11:59 Intake Total 300 50 250 Output Total 405 283 281 Balance -105 -233 -31 Weight 86.891 kg Intake & Output: Intake & Output 09/06/22 09/07/22 09/07/22 19:59 03:59 11:59 Intake Total 300 50 250 Output Total 405 283 281 Balance -105 -233 -31 Weight 86.891 kg Intake: IV 100 50 50 Zosyn 3.375 gm In Dextrose 5% 100 50 50 in Water 50 ml @ 100 mls/hr IV Q6H [facility] Rx#:[id number] Oral 200 200 Output: Urine Catheter Amount 405 283 281 Other: Meal Dinner Percent of Meal Consumed 25% Urine Appearance Clear Clear Uretheral (Kilpatrick) Clear Clear Clear Urine Color Yellow Yellow Uretheral (Kilpatrick) Yellow Yellow Yellow Urine Odor Uretheral (Kilpatrick) Normal Stool Size Small Stool Color Brown Stool Consistency Loose Loose # Bowel Movements 1 General appearance: cooperative and mild distress Head Head exam: Present atraumatic and normal inspection Eye Eye exam: Present normal appearance ENT ENT exam: Present mucous membranes moist, normal exam and normal external ear exam Additional comments: High flow oxygen in place Neck Neck exam: Present normal inspection Respiratory Respiratory exam: Present decreased breath sounds, rhonchi and wheezes Cardiovascular Cardiovascular exam: Present normal rate and rhythm GI/Abdominal GI/Abdominal exam: Present normal bowel sounds Additional comments: Kilpatrick catheter in place Back Exam Back exam: Present normal inspection Neurological Exam Neurological exam: Present alert and oriented X3 Skin Skin exam: Present intact and warm OBJ DATA Labs CBC & Chem 7: 09/07/22 05:35 09/07/22 05:35 Labs: Abnormal Lab Results 09/07/22 09/07/22 09/06/22 05:35 05:35 05:31 WBC Hct MCV MCHC RDW 15.6 H 15.1 H Plt Count 501 H Immature Gran % (Auto) 1.5 H 0.8 H Lymph % (Auto) 15.1 L [place] # (Auto) Immature Gran # 0.17 H 0.08 H Absolute Neutrophils ABG Methemoglobin VBG pH VBG pCO2 VBG pO2 VBG HCO3 VBG Total CO2 VBG O2 Saturation VBG Base Excess Carboxyhemoglobin Total Hemoglobin Potassium 3.2 L Chloride 110 H Carbon Dioxide Anion Gap BUN Glucose Calcium 7.7 L AST ALT 50 H Total Protein 5.1 L Albumin 2.3 L Albumin/Globulin Ratio 0.8 L 09/06/22 09/05/22 09/05/22 05:31 07:36 06:12 WBC Hct MCV MCHC RDW Plt Count Immature Gran % (Auto) Lymph % (Auto) [place] # (Auto) Immature Gran # Absolute Neutrophils ABG Methemoglobin 0.3 L 0.1 L VBG pH 7.24 L 7.24 L VBG pCO2 36.2 L VBG pO2 47.4 H 78.8 H VBG HCO3 20.6 L 15.2 L VBG Total CO2 22.1 L 16.3 L VBG O2 Saturation 74.4 H 85.3 H VBG Base Excess -7 L -11 L Carboxyhemoglobin 3.8 H 8.8 H Total Hemoglobin 15.4 H Potassium Chloride Carbon Dioxide 21 L Anion Gap BUN 25 H Glucose Calcium 7.7 L AST 52 H ALT 68 H Total Protein 5.4 L Albumin 2.5 L Albumin/Globulin Ratio 0.9 L 09/05/22 09/05/22 06:12 06:12 WBC 18.3 H Hct 46.0 H MCV 101.5 H MCHC 29.3 L RDW 15.9 H Plt Count 467 H Immature Gran % (Auto) 1.1 H Lymph % (Auto) [place] # (Auto) 1.13 H Immature Gran # 0.20 H Absolute Neutrophils 12.60 H ABG Methemoglobin VBG pH VBG pCO2 VBG pO2 VBG HCO3 VBG Total CO2 VBG O2 Saturation VBG Base Excess Carboxyhemoglobin Total Hemoglobin Potassium Chloride Carbon Dioxide 13 L Anion Gap 17.0 H BUN Glucose 214 H Calcium 7.6 L AST 78 H ALT 83 H Total Protein 5.6 L Albumin 2.4 L Albumin/Globulin Ratio 0.8 L Meds: Medications Albuterol/Ipratropium (Ipratropium/Albuterol 3 Ml Ampul.Neb) 3 ml NEB Q6HRT [facility] Last Admin: 09/07/22 07:22 Dose: 3 ml Artificial Tears (Carboxymethylcellulose Sodium 1 Each Droper.Gel) 1 each OU BID [facility] Last Admin: 09/06/22 20:11 Dose: 1 each Baclofen (Baclofen 10 Mg Tablet) 10 mg PO TIDP PRN PRN Reason: Muscle Spasticity Last Admin: 09/05/22 12:10 Dose: 10 mg Budesonide (Budesonide 0.5 Mg/2 Ml Ampul.Neb) 0.5 mg NEB Q12 [facility] Last Admin: 09/07/22 07:22 Dose: 0.5 mg Clotrimazole (Clotrimazole Crm 1% 1 Dose Tube) 1 dose TOPICAL BID [facility] Last Admin: 09/07/22 07:44 Dose: Not Given Dexamethasone (Dexamethasone 4 Mg Tablet) 6 mg PO DAILY [facility] Dextrose (Dextrose 50% 50 Ml Vial) 0 ml IV UD PRN PRN Reason: Per Sliding Scale Diagnostic Test (Pha) (Accu-Chek 1 Each Strip) 1 each FS ACHS [facility] Last Admin: 09/07/22 08:36 Dose: 1 each Docusate Sodium (Docusate Sodium 100 Mg Capsule) 100 mg PO BID [facility] Last Admin: 09/07/22 08:41 Dose: Not Given Enoxaparin Sodium (Enoxaparin 40 Mg/0.4 Ml Syringe) 40 mg SQ DAILY [facility] Last Admin: 09/07/22 07:43 Dose: 40 mg Glucose (Dextrose 31 Gm Oral.Susp) 15 gm PO PRN PRN PRN Reason: Hypoglycemia Hydralazine HCl (Hydralazine 20 Mg/Ml Vial) 10 mg IV Q4-6HP PRN PRN Reason: Hypertension Piperacillin Sod/Tazobactam (Sod 3.375 gm/ Dextrose) 50 mls @ 100 mls/hr IV Q6H [facility]; Protocol Last Infusion: 09/07/22 06:32 Dose: Infused REMDESIVIR 100 mg/ Sodium (Chloride) 250 mls @ 500 mls/hr IV Q24H [facility] Stop: 09/11/22 09:29 Ibuprofen (Ibuprofen 600 Mg Tablet) 600 mg PO QIDP PRN; Protocol PRN Reason: Per Pain Protocol/Fever > 101 Last Admin: 09/06/22 16:25 Dose: 600 mg Insulin Human Lispro (Insulin Lispro 1 Unit/0.01 Ml Unit) 0 unit SQ ACHS [facility]; Protocol Last Admin: 09/07/22 08:36 Dose: Not Given Lisinopril (Lisinopril 10 Mg Tablet) 10 mg PO DAILY [facility] Last Admin: 09/07/22 07:43 Dose: 10 mg Lorazepam (Lorazepam 2 Mg/Ml Vial) 1 mg IV Q4-6HP PRN PRN Reason: ANXIETY/SEDATION Metoprolol Succinate (Metoprolol Succinate 25 Mg Tab.Xl.24h) 12.5 mg PO DAILY [facility] Last Admin: 09/07/22 07:43 Dose: 12.5 mg Ondansetron HCl (Ondansetron 4 Mg/2 Ml Vial) 4 mg IV Q6HP PRN PRN Reason: Nausea And Vomiting Pantoprazole Sodium (Pantoprazole 40 Mg Tablet) 40 mg PO QAMAC [facility] Potassium Chloride (Potassium Chloride 20 Meq Tablet) 20 meq PO BIDCC [facility] Senna (Sennosides 1 Tablet) 2 tab PO HS [facility] Last Admin: 09/06/22 19:43 Dose: Not Given Sodium Chloride (0.9 % Sodium Chloride 10 Ml Syringe) 10 ml IV Q8 [facility] Last Admin: 09/07/22 05:56 Dose: 10 ml ABG Interpretation ABG results: 09/05/22 09/05/22 06:12 07:36 ABG Methemoglobin 0.1 L 0.3 L VBG pH 7.24 L 7.24 L VBG pCO2 36.2 L 49.0 VBG pO2 78.8 H 47.4 H VBG HCO3 15.2 L 20.6 L VBG Total CO2 16.3 L 22.1 L VBG O2 Saturation 85.3 H 74.4 H VBG Base Excess -11 L -7 L A/P Assessment and plan (1) T2DM (type 2 diabetes mellitus): Status: Acute (2) Essential hypertension: Status: Acute (3) Hyperlipidemia associated with type 2 diabetes mellitus: Status: Acute (4) Depression: Status: Acute (5) Pneumonia due to 2019-nCoV: Status: Acute (6) Delirium: Status: Acute (7) Acute respiratory failure with hypoxia: Status: Acute (8) Hypokalemia: Status: Acute Narrative A/P Narrative: Assessment and Plans: 1. CoVID pneumonia with associated acute respiratory distress with hypoxia: Inpatient ICU Isolation: airborne and contact Proning as tolerated by patient Supplemental oxygen therapy, currently on High flow oxygen 35L/min FiO2 100% Blood cultures X2, no growth to date Dexamethasone Remdisivir DuoNEB Pulmicort Continue Zosyn Saline lock Physical therapy evaluation and treatment Occupational therapy evaluation and treatment CT chest angiogram: negative for pulmonary embolism, worsening bilateral pneumonia 2. Acute delirium: DDx: results of high dose steriod Dexamethasone, acute intracranial pathologies such as CVA, secondary to CoVID pneumonia CT head w/o: no acute intracranial abnormalities Treat CoVID pneumonia, see #1 Ativan IV PRN agitation/anxiety 3. T2DM: HgA1c Insulin Lispro SSI AC HS Accu Check AC HS Hypoglycemia protocol Diabetic diet 4. Essential hypertension: Resume Toprol XL Resume Lisinopril 5. Hyperlipidemia: Holding Lipitor due to worsening mentation 6. Depression: Holding Wellbutrin due to worsening mentation 7. Hypokalemia: Potassium chloride PO replacement. CMP in the morning to trend serum potassium level. Also check serum Mg level and replace as needed GI ppx: Protonix DVT ppx: Lovenox Code status: Full Prognosis: Guarded Disposition: inpatient ICU; PT OT Critical Care Time: 45min Time Spent With Patient Time: Total time spent is greater than 50% in coordination of care (as documented) at patient's floor/unit and/or counseling patient: Critical Care Time: Yes Total Critical Care Time: 45 QUALITY Stroke Symptom Onset Unknown: No VTE Deep Vein Thrombosis/Pulmonary Embolism Present on Admission: No
[2022-09-07] MEDS: CARBOXYMETHYLCELLULOSE SODIUM 1 EACH DROPER.GEL OU SCH ×2 (10:21→21:29)
[2022-09-07] MEDS: REMDESIVIR 100 MG in 0.9 % SODIUM CHLORIDE 250 ML IV SCH (11:13)
--- NOTE | 2022-09-07 11:37 | XRay Report ---
CLINICAL INFORMATION: History of covid ammonia. Dyspnea COMPARISON: 09/05/2022 TECHNIQUE: Portable FINDINGS: The heart size, mediastinum and pulmonary vessels are unremarkable. Bilateral infiltrates again noted. There has been improvement in the left lung infiltrate with moderate midlung residual. On the right, there is diffuse infiltrate with worsening consolidation in the right base. Small right pleural effusion noted.. The bones and soft tissues are within normal limits. IMPRESSION: Bilateral alveolar infiltrates. Moderate improvement in left lung infiltrate however there is slight worsening in the right basilar component of diffuse right lung infiltrate. Interpreted and Authenticated by: Hossein Liu 09/07/22
[2022-09-07] MEDS: IBUPROFEN 600 MG TABLET PO PRN (12:24)
[2022-09-07] MEDS: POTASSIUM CHLORIDE 20 MEQ TABLET PO SCH (17:14)
[2022-09-07] MEDS: SENNOSIDES 1 TABLET PO SCH (21:13)
[2022-09-08] MEDS: IPRATROPIUM/ALBUTEROL 3 ML AMPUL.NEB NEB SCH ×4 (00:08→19:25)
[2022-09-08] MEDS: LORazepam 2 MG/ML VIAL IV PRN (05:25)
[2022-09-08] MEDS: PIPERACILLIN SODIUM/TAZOBACTAM 3.375 GM in DEXTROSE 5% IN WATER 50 ML IV SCH ×3 (05:26→17:31)
[2022-09-08] MEDS: 0.9 % SODIUM CHLORIDE 10 ML SYRINGE IV SCH ×3 (05:33→20:10)
[2022-09-08] MEDS ORDERED: PANTOPRAZOLE 40 MG TABLET PO SCH (07:30)
[2022-09-08 07:42] LABS: Basophils # (Auto) 0.05 K/mcL (0.00-0.30); Basophils % (Auto) 0.4 % (0.0-2.0); Eosinophils # (Auto) 0.06 K/mcL (0.00-0.70); Eosinophils % (Auto) 0.4 % (0.0-7.0); Hematocrit 40.2 % (34.1-44.9); Hemoglobin 12.8 g/dL (11.2-15.7); Lymphocytes # (Auto) 2.78 K/mcL (1.50-4.80); Lymphocytes % (Auto) 19.7 % (15.5-49.0); Mean Corpuscular HGB Conc 31.8 g/dL (31.0-36.0); Mean Platelet Volume 10.3 fL (8.8-12.5); Monocytes # (Auto) 0.93 K/mcL (0.10-0.90); Monocytes % (Auto) 6.6 % (1.0-12.0); Neutrophils % (Auto) 71.3 % (38.0-78.0); Platelet Count 594 K/mcL (140-440); RBC 4.42 M/mcL (3.59-5.38); Red Cell Distribution Width 15.7 % (11.5-14.5); WBC 14.1 K/mcL (4.5-11.0)
[2022-09-08] MEDS: BUDESONIDE 0.5 MG/2 ML AMPUL.NEB NEB SCH ×2 (08:08→19:25)
--- NOTE | 2022-09-08 08:14 | Internal Med Progress Note ---
SUBJECTIVE Subjective Patient information: Note initiated : 09/08/22 at 8:09 am Service Date, if different from initiated Date: [] Patient: Felicia Grewal 77 y/o F admitted on 09/03/22 for Shortness of breath. Chief Complaint: [] Interval history: 09/04: Patient have worsening mentations with agitations and alert and oriented x1 to person only since this morning, new finding. Her oxygen requirement also increased from 1 L/min to 5 L/min via oxygen mask. Tachycardia and tachypnea also noted. Subjective not obtained due to clinical situations. Will order CT of the head without contrast to rule out acute intracranial pathologies. Will order CT chest angiogram to rule out pulmonary embolism and any other acute intrathoracic pathologies to account for the worsening of her respiratory status. Continue supplemental oxygen therapy meanwhile. Continue dexamethasone and remdesivir for treatment of COVID-pneumonia. Continue physical therapy and Occupational Therapy evaluation and treatment for placement planning. 09/05: CT chest angiogram: negative for pulmonary embolism, worsening bilateral pneumonia. Patient deteriorate overnight, increasing oxygen requirement, and became very confused and not oriented. Placed on nonrebreather, then BiPAP. Transfer to inpatient ICU. Repeat CXR Repeat VBG Blood cultures X2, then Vancomycin/Zosyn Saline lock, Lasix 40mg IV once Ativan 1mg IV q6h PRN anxiety/agitation Continue Dexamethasone/Remdesivir Will touch base with family regarding prognosis/goal of care 09/06: Afebrile overnight. MRSA screening negative. All cultures no growth to date. Patient still on BiPAP 18/8 cmH2O RR12 FiO2 60%. Urine output ~30cc/hr/ Improving degree of shortness of breath. Denies cough or wheezing. Denies fever, chills, or sweating. Stays in ICU. d/c Vancomycin, continue Zosyn. Continue Dexamethasone/Remdesivir Continue to wean down/off BiPAP as tolerating. Heated high flow oxygen when fe eding patient. Physical and occupational therapies evaluation and treatment. 09/07: Afebrile overnight. All cultures no growth to date. Patient tolerated proning overnight. Currently on high flow oxygen 35L/min FiO2 100%. Improving degree of shortness of breath. Poor appetite. Poor energy level. Denies fever, chills, or sweating. Stays in ICU. Proning as tolerated Continue Zosyn Continue Dexamethasone/Remdesivir Continue to wean oxygen therapy as tolerating Physical and occupational therapies evaluation and treatment 09/08: Afebrile overnight. All cultures no growth to date. Patient became BiPAP depending again, currently at 18/8 cmH2O, RR 12, FiO2 60%. Subjective not obtained due to clinical situations. Stays in ICU. Proning as tolerated Continue Zosyn Continue Dexamethasone/Remdesivir BiPAP, wean down/ change to high flow oxygen Constitutional Vitals: Vital Signs Temp Pulse Resp BP Pulse Ox O2 Del Method O2 Flow Rate 36.6 C 117 H 24 H 148/67 91 45 09/08/22 04:00 09/08/22 07:01 09/08/22 07:01 09/08/22 07:01 09/08/22 07:01 09/08/22 07:01 09/08/22 06:23 Period Temp Pulse Resp BP Sys/[place] Pulse Ox O2 Del Method O2 Flow Rate Last 24 Hr 36.3 C-36.8 C 10-126 18-33 144-176/55-89 89-96 BiPAP-Heated High Flow Nasal Ca 35-45 Intake and Output 09/07/22 09/08/22 09/08/22 19:59 03:59 11:59 Intake Total 340 150 100 Output Total 456 260 100 Balance -116 -110 0 Weight 86.891 kg 86.5 kg Intake & Output: Intake & Output 09/07/22 09/08/22 09/08/22 19:59 03:59 11:59 Intake Total 340 150 100 Output Total 456 260 100 Balance -116 -110 0 Weight 86.891 kg 86.5 kg Intake: IV 100 50 50 Zosyn 3.375 gm In Dextrose 5% 100 50 50 in Water 50 ml @ 100 mls/hr IV Q6H [facility] Rx#:[id number] Oral 240 100 50 Output: Urine Catheter Amount 456 260 100 Other: Meal Dinner Percent of Meal Consumed 100% Feeding Ability Independent Urine Appearance Clear Clear Clear Uretheral (Kilpatrick) Clear Clear Urine Color Yellow Dark Yellow Dark Yellow Pale Uretheral (Kilpatrick) Yellow Dark Yellow Pale Urine Odor Normal Normal Stool Size Small Moderate Stool Color Brown Brown Stool Consistency Loose Liquid Loose # Bowel Movements 1 1 # of times incontinent of 0 Bowels General appearance: average body habitus, cooperative and no acute distress Head Head exam: Present atraumatic and normal inspection Eye Eye exam: Present normal appearance ENT ENT exam: Present mucous membranes moist, normal exam and normal external ear exam Additional comments: BiPAP in place Neck Neck exam: Present normal inspection Respiratory Respiratory exam: Present decreased breath sounds and rhonchi Cardiovascular Cardiovascular exam: Present tachycardia GI/Abdominal GI/Abdominal exam: Present normal bowel sounds Additional comments: Kilpatrick catheter in place Back Exam Back exam: Present normal inspection Neurological Exam Neurological exam: Present alert and oriented X3 Skin Skin exam: Present intact and warm OBJ DATA Labs CBC & Chem 7: 09/08/22 06:10 09/07/22 05:35 Labs: Abnormal Lab Results 09/08/22 09/07/22 09/07/22 06:10 05:35 05:35 WBC 14.1 H RDW 15.7 H 15.6 H Plt Count 594 H 501 H Immature Gran % (Auto) 1.6 H 1.5 H Lymph % (Auto) [place] # (Auto) 0.93 H Immature Gran # 0.22 H 0.17 H Absolute Neutrophils 10.05 H Potassium 3.2 L Chloride 110 H Carbon Dioxide BUN Calcium 7.7 L AST ALT 50 H Total Protein 5.1 L Albumin 2.3 L Albumin/Globulin Ratio 0.8 L 09/06/22 09/06/22 05:31 05:31 WBC RDW 15.1 H Plt Count Immature Gran % (Auto) 0.8 H Lymph % (Auto) 15.1 L [place] # (Auto) Immature Gran # 0.08 H Absolute Neutrophils Potassium Chloride Carbon Dioxide 21 L BUN 25 H Calcium 7.7 L AST 52 H ALT 68 H Total Protein 5.4 L Albumin 2.5 L Albumin/Globulin Ratio 0.9 L Meds: Medications Albuterol/Ipratropium (Ipratropium/Albuterol 3 Ml Ampul.Neb) 3 ml NEB Q6HRT [facility] Last Admin: 09/08/22 05:26 Dose: 3 ml Artificial Tears (Carboxymethylcellulose Sodium 1 Each Droper.Gel) 1 each OU BID [facility] Last Admin: 09/07/22 21:29 Dose: 1 each Baclofen (Baclofen 10 Mg Tablet) 10 mg PO TIDP PRN PRN Reason: Muscle Spasticity Last Admin: 09/05/22 12:10 Dose: 10 mg Budesonide (Budesonide 0.5 Mg/2 Ml Ampul.Neb) 0.5 mg NEB Q12 [facility] Last Admin: 09/07/22 19:25 Dose: 0.5 mg Clotrimazole (Clotrimazole Crm 1% 1 Dose Tube) 1 dose TOPICAL BID [facility] Last Admin: 09/07/22 21:13 Dose: Not Given Dexamethasone (Dexamethasone 4 Mg Tablet) 6 mg PO DAILY [facility] Dextrose (Dextrose 50% 50 Ml Vial) 0 ml IV UD PRN PRN Reason: Per Sliding Scale Diagnostic Test (Pha) (Accu-Chek 1 Each Strip) 1 each FS ACHS [facility] Last Admin: 09/07/22 21:12 Dose: 1 each Docusate Sodium (Docusate Sodium 100 Mg Capsule) 100 mg PO BID [facility] Last Admin: 09/07/22 21:12 Dose: Not Given Enoxaparin Sodium (Enoxaparin 40 Mg/0.4 Ml Syringe) 40 mg SQ DAILY [facility] Last Admin: 09/07/22 07:43 Dose: 40 mg Glucose (Dextrose 31 Gm Oral.Susp) 15 gm PO PRN PRN PRN Reason: Hypoglycemia Hydralazine HCl (Hydralazine 20 Mg/Ml Vial) 10 mg IV Q4-6HP PRN PRN Reason: Hypertension Piperacillin Sod/Tazobactam (Sod 3.375 gm/ Dextrose) 50 mls @ 100 mls/hr IV Q6H [facility]; Protocol Last Infusion: 09/08/22 06:06 Dose: Infused REMDESIVIR 100 mg/ Sodium (Chloride) 250 mls @ 500 mls/hr IV Q24H [facility] Stop: 09/11/22 09:29 Last Infusion: 09/07/22 11:51 Dose: Infused Potassium Chloride 20 meq/ (Dextrose) 260 mls @ 130 mls/hr IV ONCE [facility] Stop: 09/08/22 12:00 Ibuprofen (Ibuprofen 600 Mg Tablet) 600 mg PO QIDP PRN; Protocol PRN Reason: Per Pain Protocol/Fever > 101 Last Admin: 09/07/22 12:24 Dose: 600 mg Insulin Human Lispro (Insulin Lispro 1 Unit/0.01 Ml Unit) 0 unit SQ [facility]; Protocol Last Admin: 09/07/22 21:12 Dose: Not Given Lisinopril (Lisinopril 10 Mg Tablet) 10 mg PO DAILY [facility] Last Admin: 09/07/22 07:43 Dose: 10 mg Lorazepam (Lorazepam 2 Mg/Ml Vial) 1 mg IV Q4-6HP PRN PRN Reason: ANXIETY/SEDATION Last Admin: 09/08/22 05:25 Dose: 1 mg Metoprolol Succinate (Metoprolol Succinate 25 Mg Tab.Xl.24h) 12.5 mg PO DAILY [facility] Last Admin: 09/07/22 07:43 Dose: 12.5 mg Ondansetron HCl (Ondansetron 4 Mg/2 Ml Vial) 4 mg IV Q6HP PRN PRN Reason: Nausea And Vomiting Pantoprazole Sodium (Pantoprazole 40 Mg Vial) 40 mg IV QAMAC [facility] Senna (Sennosides 1 Tablet) 2 tab PO HS [facility] Last Admin: 09/07/22 21:13 Dose: Not Given Sodium Chloride (0.9 % Sodium Chloride 10 Ml Syringe) 10 ml IV Q8 [facility] Last Admin: 09/08/22 05:33 Dose: 10 ml ABG Interpretation ABG results: 09/05/22 09/05/22 06:12 07:36 ABG Methemoglobin 0.1 L 0.3 L VBG pH 7.24 L 7.24 L VBG pCO2 36.2 L 49.0 VBG pO2 78.8 H 47.4 H VBG HCO3 15.2 L 20.6 L VBG Total CO2 16.3 L 22.1 L VBG O2 Saturation 85.3 H 74.4 H VBG Base Excess -11 L -7 L A/P Assessment and plan (1) T2DM (type 2 diabetes mellitus): Status: Acute (2) Essential hypertension: Status: Acute (3) Hyperlipidemia associated with type 2 diabetes mellitus: Status: Acute (4) Depression: Status: Acute (5) Pneumonia due to 2019-nCoV: Status: Acute (6) Delirium: Status: Acute (7) Acute respiratory failure with hypoxia: Status: Acute (8) Hypokalemia: Status: Acute Narrative A/P Narrative: Assessment and Plans: 1. CoVID pneumonia with associated acute respiratory distress with hypoxia: Inpatient ICU Isolation: airborne and contact Proning as tolerated by patient BiPAP current settings 18/8 cmH2O RR12 FiO2 60% Blood cultures X2, no growth to date Dexamethasone Remdisivir DuoNEB Pulmicort Continue Zosyn Saline lock Physical therapy evaluation and treatment Occupational therapy evaluation and treatment 2. Acute delirium: DDx: results of high dose steriod Dexamethasone, acute intracranial pathologies such as CVA, secondary to CoVID pneumonia CT head w/o: no acute intracranial abnormalities Treat CoVID pneumonia, see #1 Ativan IV PRN agitation/anxiety 3. T2DM: HgA1c Insulin Lispro SSI AC HS Accu Check AC HS Hypoglycemia protocol Diabetic diet 4. Essential hypertension: Resume Toprol XL Resume Lisinopril 5. Hyperlipidemia: Holding Lipitor due to worsening mentation 6. Depression: Holding Wellbutrin due to worsening mentation 7. Hypokalemia: Potassium chloride IV replacement. CMP in the morning to trend serum potassium level. Also check serum Mg level and replace as needed GI ppx: Protonix DVT ppx: Lovenox Code status: Full Prognosis: Extremely Guarded Disposition: inpatient ICU; PT OT Critical Care Time: 45min Time Spent With Patient Time: Total time spent is greater than 50% in coordination of care (as documented) at patient's floor/unit and/or counseling patient: Critical Care Time: Yes Total Critical Care Time: 45 QUALITY Stroke Symptom Onset Unknown: No VTE Deep Vein Thrombosis/Pulmonary Embolism Present on Admission: No
[2022-09-08 08:16] LABS: ALT/SGPT 42 U/L (<40); AST/SGOT 28 U/L (<32); Albumin 2.6 gm/dL (3.2-5.2); Albumin/Globulin Ratio 0.9 (1.0-2.3); Alkaline Phosphatase 62 U/L (39-117); Bilirubin,Total 0.4 mg/dL (0.1-1.0); Blood Urea Nitrogen 20 mg/dL (8-23); Calcium 8.2 mg/dL (8.6-10.4); Carbon Dioxide 19 mmol/L (22-30); Chloride 107 mmol/L (96-108); Glomerular Filtration Rate 88; Glucose 108 mg/dL (70-105)
[2022-09-08] MEDS: INSULIN LISPRO 1 UNIT/0.01 ML UNIT SQ SCH ×4 (08:22→20:10)
[2022-09-08] MEDS: DOCUSATE SODIUM 100 MG CAPSULE PO SCH ×2 (08:22→19:56)
[2022-09-08] MEDS: CLOTRIMAZOLE CRM 1% 1 DOSE TUBE TOPICAL SCH ×2 (08:55→19:56)
[2022-09-08] MEDS ORDERED: POTASSIUM CHLORIDE 20 MEQ in DEXTROSE 5% IN WATER 250 ML IV SCH (09:00)
[2022-09-08] MEDS ORDERED: DEXAMETHASONE 4 MG TABLET PO SCH (09:00)
[2022-09-08] MEDS: DEXAMETHASONE 10 MG/ML VIAL IV SCH (09:03)
[2022-09-08] MEDS: ENOXAPARIN 40 MG/0.4 ML SYRINGE SQ SCH (09:03)
[2022-09-08] MEDS: PANTOPRAZOLE 40 MG VIAL IV SCH (09:03)
[2022-09-08] MEDS: CARBOXYMETHYLCELLULOSE SODIUM 1 EACH DROPER.GEL OU SCH ×2 (09:06→20:10)
[2022-09-08] MEDS: REMDESIVIR 100 MG in 0.9 % SODIUM CHLORIDE 250 ML IV SCH (09:27)
[2022-09-08] MEDS: LISINOPRIL 10 MG TABLET PO SCH (09:54)
[2022-09-08] MEDS: METOPROLOL SUCCINATE 25 MG TAB.XL.24H PO SCH (09:54)
[2022-09-08] MEDS: POTASSIUM CHLORIDE 20 MEQ TABLET PO SCH (09:54)
[2022-09-08] MEDS ORDERED: TOCILIZUMAB 700 MG in 0.9 % SODIUM CHLORIDE 65 ML IV SCH (10:30)
[2022-09-08] MEDS ORDERED: OLANZapine 5 MG TABLET PO PRN (13:42)
--- NOTE | 2022-09-08 13:49 | Internal Med Progress Note ---
SUBJECTIVE Subjective Patient information: Note initiated : 09/08/22 at 1:39 pm Service Date, if different from initiated Date: [] Patient: Felicia Grewal 77 y/o F admitted on 09/03/22 for Shortness of breath. Chief Complaint: [] Interval history: 09/04: Patient have worsening mentations with agitations and alert and oriented x1 to person only since this morning, new finding. Her oxygen requirement also increased from 1 L/min to 5 L/min via oxygen mask. Tachycardia and tachypnea also noted. Subjective not obtained due to clinical situations. Will order CT of the head without contrast to rule out acute intracranial pathologies. Will order CT chest angiogram to rule out pulmonary embolism and any other acute intrathoracic pathologies to account for the worsening of her respiratory status. Continue supplemental oxygen therapy meanwhile. Continue dexamethasone and remdesivir for treatment of COVID-pneumonia. Continue physical therapy and Occupational Therapy evaluation and treatment for placement planning. 09/05: CT chest angiogram: negative for pulmonary embolism, worsening bilateral pneumonia. Patient deteriorate overnight, increasing oxygen requirement, and became very confused and not oriented. Placed on nonrebreather, then BiPAP. Transfer to inpatient ICU. Repeat CXR Repeat VBG Blood cultures X2, then Vancomycin/Zosyn Saline lock, Lasix 40mg IV once Ativan 1mg IV q6h PRN anxiety/agitation Continue Dexamethasone/Remdesivir Will touch base with family regarding prognosis/goal of care 09/06: Afebrile overnight. MRSA screening negative. All cultures no growth to date. Patient still on BiPAP 18/8 cmH2O RR12 FiO2 60%. Urine output ~30cc/hr/ Improving degree of shortness of breath. Denies cough or wheezing. Denies fever, chills, or sweating. Stays in ICU. d/c Vancomycin, continue Zosyn. Continue Dexamethasone/Remdesivir Continue to wean down/off BiPAP as tolerating. Heated high flow oxygen when fe eding patient. Physical and occupational therapies evaluation and treatment. 09/07: Afebrile overnight. All cultures no growth to date. Patient tolerated proning overnight. Currently on high flow oxygen 35L/min FiO2 100%. Improving degree of shortness of breath. Poor appetite. Poor energy level. Denies fever, chills, or sweating. Stays in ICU. Proning as tolerated Continue Zosyn Continue Dexamethasone/Remdesivir Continue to wean oxygen therapy as tolerating Physical and occupational therapies evaluation and treatment 09/08: Afebrile overnight. All cultures no growth to date. Patient became BiPAP depending again, currently at 18/8 cmH2O, RR 12, FiO2 60%. Subjective not obtained due to clinical situations. Stays in ICU. Proning as tolerated Continue Zosyn Continue Dexamethasone/Remdesivir BiPAP, wean down/ change to high flow oxygen Constitutional Vitals: Vital Signs Temp Pulse Resp BP Pulse Ox O2 Del Method O2 Flow Rate 98.9 F 107 H 22 150/98 94 45 09/08/22 12:01 09/08/22 12:01 09/08/22 12:01 09/08/22 12:01 09/08/22 12:01 09/08/22 12:01 09/08/22 06:23 Period Temp Pulse Resp BP Sys/[place] Pulse Ox O2 Del Method O2 Flow Rate Last 24 Hr 97.4 F-99.2 F 10-126 18-33 146-176/66-98 89-98 BiPAP-Heated High Flow Nasal Ca 35-45 Intake and Output 09/08/22 09/08/22 09/08/22 03:59 11:59 19:59 Intake Total 150 610 150 Output Total 260 373 Balance -110 237 150 Weight 86.5 kg Intake & Output: Intake & Output 09/08/22 09/08/22 09/08/22 03:59 11:59 19:59 Intake Total 150 610 150 Output Total 260 373 Balance -110 237 150 Weight 86.5 kg Intake: IV 50 560 150 Zosyn 3.375 gm In Dextrose 5% 50 50 50 in Water 50 ml @ 100 mls/hr IV Q6H [facility] Rx#:[id number] Potassium Chloride 20 Meq In 260 Dextrose 5% in Water 250 ml @ 130 mls/hr IV ONCE [facility] Rx#: [id number] Veklury 100 mg In Sodium 250 Chloride 0.9% 250 ml @ 500 mls/ hr IV Q24H [facility] Rx#:[id number] Actemra 700 mg In Sodium 100 Chloride 0.9% 65 ml @ 100 mls/ hr IV ONCE [facility]LAZE Rx#:[id number] Oral 100 50 Output: Urine Catheter Amount 260 273 Void Amount 100 Other: Urine Appearance Clear Clear Uretheral (Kilpatrick) Clear Clear Urine Color Dark Yellow Dark Yellow Uretheral (Kilpatrick) Dark Yellow Dark Yellow Urine Odor Normal Normal Stool Size Moderate Small Stool Color Brown Brown Stool Consistency Liquid Liquid Loose Loose # Bowel Movements 1 # of times incontinent of 0 Bowels OBJ DATA Labs CBC & Chem 7: 09/08/22 06:10 09/08/22 06:10 Labs: Abnormal Lab Results 09/08/22 09/08/22 09/07/22 06:10 06:10 05:35 WBC 14.1 H RDW 15.7 H 15.6 H Plt Count 594 H 501 H Immature Gran % (Auto) 1.6 H 1.5 H Lymph % (Auto) [place] # (Auto) 0.93 H Immature Gran # 0.22 H 0.17 H Absolute Neutrophils 10.05 H Potassium 3.2 L Chloride Carbon Dioxide 19 L BUN Glucose 108 H Calcium 8.2 L AST ALT 42 H Total Protein 5.6 L Albumin 2.6 L Albumin/Globulin Ratio 0.9 L 09/07/22 09/06/22 09/06/22 05:35 05:31 05:31 WBC RDW 15.1 H Plt Count Immature Gran % (Auto) 0.8 H Lymph % (Auto) 15.1 L [place] # (Auto) Immature Gran # 0.08 H Absolute Neutrophils Potassium 3.2 L Chloride 110 H Carbon Dioxide 21 L BUN 25 H Glucose Calcium 7.7 L 7.7 L AST 52 H ALT 50 H 68 H Total Protein 5.1 L 5.4 L Albumin 2.3 L 2.5 L Albumin/Globulin Ratio 0.8 L 0.9 L Meds: Medications Albuterol/Ipratropium (Ipratropium/Albuterol 3 Ml Ampul.Neb) 3 ml NEB Q6HRT [facility] Last Admin: 09/08/22 13:35 Dose: 3 ml Artificial Tears (Carboxymethylcellulose Sodium 1 Each Droper.Gel) 1 each OU BID [facility] Last Admin: 09/08/22 09:06 Dose: 1 each Baclofen (Baclofen 10 Mg Tablet) 10 mg PO TIDP PRN PRN Reason: Muscle Spasticity Last Admin: 09/05/22 12:10 Dose: 10 mg Budesonide (Budesonide 0.5 Mg/2 Ml Ampul.Neb) 0.5 mg NEB Q12 [facility] Last Admin: 09/07/22 19:25 Dose: 0.5 mg Clotrimazole (Clotrimazole Crm 1% 1 Dose Tube) 1 dose TOPICAL BID [facility] Last Admin: 09/08/22 08:55 Dose: Not Given Dexamethasone (Dexamethasone 10 Mg/Ml Vial) 6 mg IV DAILY [facility] Last Admin: 09/08/22 09:03 Dose: 6 mg Dextrose (Dextrose 50% 50 Ml Vial) 0 ml IV UD PRN PRN Reason: Per Sliding Scale Diagnostic Test (Pha) (Accu-Chek 1 Each Strip) 1 each FS [facility] Last Admin: 09/08/22 11:14 Dose: 1 each Docusate Sodium (Docusate Sodium 100 Mg Capsule) 100 mg PO BID [facility] Last Admin: 09/08/22 08:22 Dose: Not Given Enoxaparin Sodium (Enoxaparin 40 Mg/0.4 Ml Syringe) 40 mg SQ DAILY [facility] Last Admin: 09/08/22 09:03 Dose: 40 mg Glucose (Dextrose 31 Gm Oral.Susp) 15 gm PO PRN PRN PRN Reason: Hypoglycemia Hydralazine HCl (Hydralazine 20 Mg/Ml Vial) 10 mg IV Q4-6HP PRN PRN Reason: Hypertension Piperacillin Sod/Tazobactam (Sod 3.375 gm/ Dextrose) 50 mls @ 100 mls/hr IV Q6H [facility]; Protocol Last Infusion: 09/08/22 12:17 Dose: Infused REMDESIVIR 100 mg/ Sodium (Chloride) 250 mls @ 500 mls/hr IV Q24H [facility] Stop: 09/11/22 09:29 Last Infusion: 09/08/22 10:10 Dose: Infused Ibuprofen (Ibuprofen 600 Mg Tablet) 600 mg PO QIDP PRN; Protocol PRN Reason: Per Pain Protocol/Fever > 101 Last Admin: 09/07/22 12:24 Dose: 600 mg Insulin Human Lispro (Insulin Lispro 1 Unit/0.01 Ml Unit) 0 unit SQ [facility]; Protocol Last Admin: 09/08/22 11:14 Dose: Not Given Lisinopril (Lisinopril 10 Mg Tablet) 10 mg PO DAILY [facility] Last Admin: 09/08/22 09:54 Dose: 10 mg Lorazepam (Lorazepam 2 Mg/Ml Vial) 1 mg IV Q4-6HP PRN PRN Reason: ANXIETY/SEDATION Last Admin: 09/08/22 05:25 Dose: 1 mg Metoprolol Succinate (Metoprolol Succinate 25 Mg Tab.Xl.24h) 12.5 mg PO DAILY [facility] Last Admin: 09/08/22 09:54 Dose: 12.5 mg Ondansetron HCl (Ondansetron 4 Mg/2 Ml Vial) 4 mg IV Q6HP PRN PRN Reason: Nausea And Vomiting Pantoprazole Sodium (Pantoprazole 40 Mg Vial) 40 mg IV QAMAC [facility] Last Admin: 09/08/22 09:03 Dose: 40 mg Senna (Sennosides 1 Tablet) 2 tab PO HS [facility] Last Admin: 09/07/22 21:13 Dose: Not Given Sodium Chloride (0.9 % Sodium Chloride 10 Ml Syringe) 10 ml IV Q8 [facility] Last Admin: 09/08/22 05:33 Dose: 10 ml ABG Interpretation ABG results: 09/05/22 09/05/22 06:12 07:36 ABG Methemoglobin 0.1 L 0.3 L VBG pH 7.24 L 7.24 L VBG pCO2 36.2 L 49.0 VBG pO2 78.8 H 47.4 H VBG HCO3 15.2 L 20.6 L VBG Total CO2 16.3 L 22.1 L VBG O2 Saturation 85.3 H 74.4 H VBG Base Excess -11 L -7 L A/P Narrative A/P Narrative: Assessment and Plans: *Acute hypoxic respiratory failure: -Currently on BiPAP *CoVID pneumonia with associated acute respiratory distress with hypoxia: -Proning as tolerated by patient, oob to chair -Dexamethasone/Remdisivir, s/p Actemra -DuoNEB prn, Pulmicort -empiric abx Zosyn *Acute delirium: -DDx: high dose steriod Dexamethasone vs acute intracranial pathologies such as CVA vs likely CoVID pneumonia -CT head w/o: no acute intracranial abnormalities -Treat CoVID pneumonia, see #1 *T2DM: -HgA1c -SSI, *Essential hypertension / HLD: -Resume Toprol XL , Resume Lisinopril , statin *Depression: -Holding Wellbutrin due to worsening mentation *Hypokalemia: -replace prn, f/u chemistry and trend *Generalized weakness/deconditioning: PT/OT *ppx: Lovenox / ppi Code status: Full Prognosis: Extremely Guarded Time Spent With Patient Time: Total time spent is greater than 50% in coordination of care (as documented) at patient's floor/unit and/or counseling patient: QUALITY Stroke Symptom Onset Unknown: No VTE Deep Vein Thrombosis/Pulmonary Embolism Present on Admission: No
[2022-09-08] MEDS: SENNOSIDES 1 TABLET PO SCH (19:57)
[2022-09-09] MEDS: PIPERACILLIN SODIUM/TAZOBACTAM 3.375 GM in DEXTROSE 5% IN WATER 50 ML IV SCH ×4 (00:06→17:31)
[2022-09-09] MEDS: IPRATROPIUM/ALBUTEROL 3 ML AMPUL.NEB NEB SCH ×3 (01:45→21:17)
[2022-09-09] MEDS: 0.9 % SODIUM CHLORIDE 10 ML SYRINGE IV SCH ×3 (05:53→21:25)
[2022-09-09 06:42] LABS: Basophils # (Auto) 0.02 K/mcL (0.00-0.30); Basophils % (Auto) 0.2 % (0.0-2.0); Eosinophils # (Auto) 0.05 K/mcL (0.00-0.70); Eosinophils % (Auto) 0.5 % (0.0-7.0); Hematocrit 38.3 % (34.1-44.9); Hemoglobin 12.3 g/dL (11.2-15.7); Lymphocytes # (Auto) 2.32 K/mcL (1.50-4.80); Lymphocytes % (Auto) 21.9 % (15.5-49.0); Mean Cell Volume 89.7 fL (80.0-100.0); Mean Corpuscular HGB Conc 32.1 g/dL (31.0-36.0); Mean Platelet Volume 9.8 fL (8.8-12.5); Monocytes # (Auto) 0.64 K/mcL (0.10-0.90); Neutrophils % (Auto) 70.1 % (38.0-78.0); Platelet Count 572 K/mcL (140-440); RBC 4.27 M/mcL (3.59-5.38); Red Cell Distribution Width 15.8 % (11.5-14.5); WBC 10.6 K/mcL (4.5-11.0)
[2022-09-09 07:23] LABS: ALT/SGPT 34 U/L (<40); AST/SGOT 25 U/L (<32); Albumin 2.5 gm/dL (3.2-5.2); Albumin/Globulin Ratio 0.9 (1.0-2.3); Alkaline Phosphatase 58 U/L (39-117); Bilirubin,Direct < 0.2 mg/dL (0-0.3); Bilirubin,Total 0.4 mg/dL (0.1-1.0); Blood Urea Nitrogen 19 mg/dL (8-23); Calcium 8.3 mg/dL (8.6-10.4); Carbon Dioxide 23 mmol/L (22-30); Chloride 107 mmol/L (96-108); Globulin 2.9 gm/dL (2.2-3.7); Glomerular Filtration Rate 88; Glucose 93 mg/dL (70-105); Lactate Dehydrogenase 406 U/L (135-225); Phosphorous 2.8 mg/dL (2.5-4.5); Triglycerides 81 mg/dL (<150); Uric Acid 2.9 mg/dL (2.5-8.0)
[2022-09-09] MEDS ORDERED: PANTOPRAZOLE 40 MG VIAL IV SCH (07:30)
[2022-09-09] MEDS: INSULIN LISPRO 1 UNIT/0.01 ML UNIT SQ SCH ×4 (07:33→21:21)
[2022-09-09] MEDS: DOCUSATE SODIUM 100 MG CAPSULE PO SCH ×2 (07:34→21:21)
[2022-09-09] MEDS: CLOTRIMAZOLE CRM 1% 1 DOSE TUBE TOPICAL SCH ×2 (07:34→21:21)
[2022-09-09] MEDS: PANTOPRAZOLE 40 MG VIAL IV SCH (07:40)
[2022-09-09] MEDS ORDERED: LABETALOL 5 MG/ML ML IV PRN (07:51)
--- NOTE | 2022-09-09 07:52 | Internal Med Progress Note ---
SUBJECTIVE Subjective Patient information: Note initiated : 09/09/22 at 7:49 am Service Date, if different from initiated Date: [] Patient: Felicia Grewal 77 y/o F admitted on 09/03/22 for Shortness of breath. Chief Complaint: [] Interval history: 09/04: Patient have worsening mentations with agitations and alert and oriented x1 to person only since this morning, new finding. Her oxygen requirement also increased from 1 L/min to 5 L/min via oxygen mask. Tachycardia and tachypnea also noted. Subjective not obtained due to clinical situations. Will order CT of the head without contrast to rule out acute intracranial pathologies. Will order CT chest angiogram to rule out pulmonary embolism and any other acute intrathoracic pathologies to account for the worsening of her respiratory status. Continue supplemental oxygen therapy meanwhile. Continue dexamethasone and remdesivir for treatment of COVID-pneumonia. Continue physical therapy and Occupational Therapy evaluation and treatment for placement planning. 09/05: CT chest angiogram: negative for pulmonary embolism, worsening bilateral pneumonia. Patient deteriorate overnight, increasing oxygen requirement, and became very confused and not oriented. Placed on nonrebreather, then BiPAP. Transfer to inpatient ICU. Repeat CXR Repeat VBG Blood cultures X2, then Vancomycin/Zosyn Saline lock, Lasix 40mg IV once Ativan 1mg IV q6h PRN anxiety/agitation Continue Dexamethasone/Remdesivir Will touch base with family regarding prognosis/goal of care 09/06: Afebrile overnight. MRSA screening negative. All cultures no growth to date. Patient still on BiPAP 18/8 cmH2O RR12 FiO2 60%. Urine output ~30cc/hr/ Improving degree of shortness of breath. Denies cough or wheezing. Denies fever, chills, or sweating. Stays in ICU. d/c Vancomycin, continue Zosyn. Continue Dexamethasone/Remdesivir Continue to wean down/off BiPAP as tolerating. Heated high flow oxygen when fe eding patient. Physical and occupational therapies evaluation and treatment. 09/07: Afebrile overnight. All cultures no growth to date. Patient tolerated proning overnight. Currently on high flow oxygen 35L/min FiO2 100%. Improving degree of shortness of breath. Poor appetite. Poor energy level. Denies fever, chills, or sweating. Stays in ICU. Proning as tolerated Continue Zosyn Continue Dexamethasone/Remdesivir Continue to wean oxygen therapy as tolerating Physical and occupational therapies evaluation and treatment 09/08: Afebrile overnight. All cultures no growth to date. Patient became BiPAP depending again, currently at 18/8 cmH2O, RR 12, FiO2 60%. Subjective not obtained due to clinical situations. Stays in ICU. Proning as tolerated Continue Zosyn Continue Dexamethasone/Remdesivir BiPAP, wean down/ change to high flow oxygen 09/09 Patient thinks she is feeling a little bit better today. She continues to have productive cough. Shortness of breath slowly improving. She is still requiring the BiPAP. FiO2 slowly being titrated down. Leukocytosis improved. Elevated proBNP. CRP slightly worse. Review of Systems: denies headache/fever/chills/nausea/vomiting/chest or abdominal pain/cough/dyspnea/diarrhea. Otherwise see above. Constitutional Vitals: Vital Signs Temp Pulse Resp BP Pulse Ox O2 Del Method O2 Flow Rate 98.2 F 86 19 163/74 93 45 09/09/22 04:01 09/09/22 06:01 09/09/22 06:01 09/09/22 06:01 09/09/22 06:01 09/09/22 06:01 09/08/22 06:23 Period Temp Pulse Resp BP Sys/[place] Pulse Ox O2 Del Method O2 Flow Rate Last 24 Hr 97.8 F-99.6 F 81-115 15-31 137-172/61-98 89-98 BiPAP-BiPAP Intake and Output 09/08/22 09/09/22 09/09/22 19:59 03:59 11:59 Intake Total 200 200 50 Output Total 432 347 80 Balance -232 -147 -30 Weight 86.636 kg Intake & Output: Intake & Output 09/08/22 09/09/22 09/09/22 19:59 03:59 11:59 Intake Total 200 200 50 Output Total 432 347 80 Balance -232 -147 -30 Weight 86.636 kg Intake: IV 200 50 50 Zosyn 3.375 gm In Dextrose 5% 100 50 50 in Water 50 ml @ 100 mls/hr IV Q6H [facility] Rx#:[id number] Actemra 700 mg In Sodium 100 Chloride 0.9% 65 ml @ 100 mls/ hr IV ONCE [facility] Rx#:[id number] Oral 150 Output: Urine Catheter Amount 432 347 80 Other: Urine Appearance Clear Clear Clear Uretheral (Kilpatrick) Clear Clear Urine Color Dark Yellow Yellow Yellow Uretheral (Kilpatrick) Dark Yellow Yellow Urine Odor Normal Normal Stool Size Small Stool Color Brown Stool Consistency Liquid Loose Exam: General: Alert, Awake, No acute Distress, obese Eyes/N/T: EOMI, Head/Neck: neck supple, CV: RRR, No murmurs, Pulm: fine rales b/l, diminished BS b/l Abd: soft, nontender, +BS x4 Ext: no clubbing/cyanosis, trace b/l LE edema Neuro: Alert, no focal deficits, moves all extremities, Skin: warm/dry OBJ DATA Labs CBC & Chem 7: 09/09/22 05:22 09/09/22 05:22 Labs: Abnormal Lab Results 09/09/22 09/09/22 09/08/22 05:22 05:22 06:10 WBC RDW 15.8 H Plt Count 572 H Immature Gran % (Auto) 1.3 H [place] # (Auto) Immature Gran # 0.14 H Absolute Neutrophils Potassium Chloride Carbon Dioxide Glucose Calcium 8.3 L GGT 57 H ALT Lactate Dehydrogenase 406 H C-Reactive Protein 6.40 H 5.00 H Total Protein 5.4 L Albumin 2.5 L Albumin/Globulin Ratio 0.9 L 09/08/22 09/08/22 09/07/22 06:10 06:10 05:35 WBC 14.1 H RDW 15.7 H 15.6 H Plt Count 594 H 501 H Immature Gran % (Auto) 1.6 H 1.5 H [place] # (Auto) 0.93 H Immature Gran # 0.22 H 0.17 H Absolute Neutrophils 10.05 H Potassium 3.2 L Chloride Carbon Dioxide 19 L Glucose 108 H Calcium 8.2 L GGT ALT 42 H Lactate Dehydrogenase C-Reactive Protein Total Protein 5.6 L Albumin 2.6 L Albumin/Globulin Ratio 0.9 L 09/07/22 05:35 WBC RDW Plt Count Immature Gran % (Auto) [place] # (Auto) Immature Gran # Absolute Neutrophils Potassium 3.2 L Chloride 110 H Carbon Dioxide Glucose Calcium 7.7 L GGT ALT 50 H Lactate Dehydrogenase C-Reactive Protein Total Protein 5.1 L Albumin 2.3 L Albumin/Globulin Ratio 0.8 L Meds: Medications Albuterol/Ipratropium (Ipratropium/Albuterol 3 Ml Ampul.Neb) 3 ml NEB Q6HRT [facility] Last Admin: 09/09/22 06:58 Dose: 3 ml Artificial Tears (Carboxymethylcellulose Sodium 1 Each Droper.Gel) 1 each OU BID [facility] Last Admin: 09/08/22 20:10 Dose: 1 each Baclofen (Baclofen 10 Mg Tablet) 10 mg PO TIDP PRN PRN Reason: Muscle Spasticity Last Admin: 09/05/22 12:10 Dose: 10 mg Budesonide (Budesonide 0.5 Mg/2 Ml Ampul.Neb) 0.5 mg NEB Q12 [facility] Last Admin: 09/08/22 19:25 Dose: 0.5 mg Clotrimazole (Clotrimazole Crm 1% 1 Dose Tube) 1 dose TOPICAL BID [facility] Last Admin: 09/09/22 07:34 Dose: Not Given Dexamethasone (Dexamethasone 10 Mg/Ml Vial) 6 mg IV DAILY [facility] Last Admin: 09/08/22 09:03 Dose: 6 mg Dextrose (Dextrose 50% 50 Ml Vial) 0 ml IV UD PRN PRN Reason: Per Sliding Scale Diagnostic Test (Pha) (Accu-Chek 1 Each Strip) 1 each FS ACHS [facility] Last Admin: 09/09/22 07:33 Dose: 1 each Docusate Sodium (Docusate Sodium 100 Mg Capsule) 100 mg PO BID [facility] Last Admin: 09/09/22 07:34 Dose: Not Given Enoxaparin Sodium (Enoxaparin 40 Mg/0.4 Ml Syringe) 40 mg SQ DAILY [facility] Last Admin: 09/08/22 09:03 Dose: 40 mg Glucose (Dextrose 31 Gm Oral.Susp) 15 gm PO PRN PRN PRN Reason: Hypoglycemia Hydralazine HCl (Hydralazine 20 Mg/Ml Vial) 10 mg IV Q4-6HP PRN PRN Reason: Hypertension Piperacillin Sod/Tazobactam (Sod 3.375 gm/ Dextrose) 50 mls @ 100 mls/hr IV Q6H [facility]; Protocol Last Infusion: 09/09/22 06:30 Dose: Infused REMDESIVIR 100 mg/ Sodium (Chloride) 250 mls @ 500 mls/hr IV Q24H [facility] Stop: 09/11/22 09:29 Last Infusion: 09/08/22 10:10 Dose: Infused Ibuprofen (Ibuprofen 600 Mg Tablet) 600 mg PO QIDP PRN; Protocol PRN Reason: Per Pain Protocol/Fever > 101 Last Admin: 09/07/22 12:24 Dose: 600 mg Insulin Human Lispro (Insulin Lispro 1 Unit/0.01 Ml Unit) 0 unit SQ ACHS [facility]; Protocol Last Admin: 09/09/22 07:33 Dose: Not Given Lisinopril (Lisinopril 10 Mg Tablet) 10 mg PO DAILY [facility] Last Admin: 09/08/22 09:54 Dose: 10 mg Lorazepam (Lorazepam 2 Mg/Ml Vial) 1 mg IV Q4-6HP PRN PRN Reason: ANXIETY/SEDATION Last Admin: 09/08/22 05:25 Dose: 1 mg Metoprolol Succinate (Metoprolol Succinate 25 Mg Tab.Xl.24h) 12.5 mg PO DAILY [facility] Last Admin: 09/08/22 09:54 Dose: 12.5 mg Olanzapine (Olanzapine 5 Mg Tablet) 5 mg PO Q8HP PRN PRN Reason: Agitation Ondansetron HCl (Ondansetron 4 Mg/2 Ml Vial) 4 mg IV Q6HP PRN PRN Reason: Nausea And Vomiting Pantoprazole Sodium (Pantoprazole 40 Mg Vial) 40 mg IV QAMAC [facility] Last Admin: 09/09/22 07:40 Dose: 40 mg Senna (Sennosides 1 Tablet) 2 tab PO HS [facility] Last Admin: 09/08/22 19:57 Dose: Not Given Sodium Chloride (0.9 % Sodium Chloride 10 Ml Syringe) 10 ml IV Q8 [facility] Last Admin: 09/09/22 05:53 Dose: 10 ml ABG Interpretation ABG results: 09/05/22 09/05/22 06:12 07:36 ABG Methemoglobin 0.1 L 0.3 L VBG pH 7.24 L 7.24 L VBG pCO2 36.2 L 49.0 VBG pO2 78.8 H 47.4 H VBG HCO3 15.2 L 20.6 L VBG Total CO2 16.3 L 22.1 L VBG O2 Saturation 85.3 H 74.4 H VBG Base Excess -11 L -7 L A/P Narrative A/P Narrative: Assessment and Plans: *Acute hypoxic respiratory failure: 2/2 covid pna and probably volume overload -Currently on BiPAP, wean as able -diuresis today *CoVID pneumonia w/ARDS: -Proning as tolerated by patient, oob to chair -Dexamethasone/Remdisivir, s/p Actemra -trend inflammaotry markers -DuoNEB prn, Pulmicort -empiric abx Zosyn -f/u cxr *Acute delirium: -DDx: high dose steriod Dexamethasone vs acute intracranial pathologies such as CVA vs likely CoVID pneumonia -CT head w/o: no acute intracranial abnormalities -Treat CoVID pneumonia, see #1 *Sepsis: 2/2 above *T2DM: -HgA1c 6.6 -SSI, *Essential hypertension / HLD: BP elevated, prn IV -Resume Toprol XL(increase), Resume Lisinopri (increase)l , statin *Depression: -Holding Wellbutrin due to worsening mentation *Hypokalemia: -replace prn, f/u chemistry and trend *Generalized weakness/deconditioning: PT/OT *Obesity: BMI 33 *ppx: Lovenox / ppi Code status: Full Prognosis: Extremely Guarded Time Spent With Patient Time: Total time spent is greater than 50% in coordination of care (as documented) at patient's floor/unit and/or counseling patient: Critical Care Time: Yes Total Critical Care Time: 60 QUALITY Stroke Symptom Onset Unknown: No VTE Deep Vein Thrombosis/Pulmonary Embolism Present on Admission: No
[2022-09-09] MEDS ORDERED: ALBUMIN HUMAN 12.5 GM/50 ML BAG IV ONE (07:54)
[2022-09-09] MEDS ORDERED: FUROSEMIDE 40 MG/4 ML VIAL IV ONE ×2 (07:54→15:00)
[2022-09-09] MEDS: DEXAMETHASONE 10 MG/ML VIAL IV SCH (08:39)
[2022-09-09] MEDS: ENOXAPARIN 40 MG/0.4 ML SYRINGE SQ SCH (08:40)
[2022-09-09] MEDS: CARBOXYMETHYLCELLULOSE SODIUM 1 EACH DROPER.GEL OU SCH ×2 (08:40→21:24)
[2022-09-09] MEDS: LISINOPRIL 10 MG TABLET PO SCH (08:40)
[2022-09-09] MEDS: METOPROLOL SUCCINATE 25 MG TAB.XL.24H PO SCH (08:40)
--- NOTE | 2022-09-09 09:02 | XRay Report ---
CLINICAL INFORMATION: Follow-up bilateral infiltrates COMPARISON: 09/07/2022 TECHNIQUE: Portable FINDINGS: For line cardiomegaly again noted. Mediastinum and pulmonary vessels are normal. Diffuse bilateral alveolar infiltrates with left apical sparing again noted. There is improved aeration in the right lung infiltrate since the yesterday's exam. No definite effusion. IMPRESSION: Diffuse bilateral alveolar infiltrates with considerable improvement in the right lung since yesterday's exam. Interpreted and Authenticated by: Hossein Liu 09/09/22
[2022-09-09] MEDS: REMDESIVIR 100 MG in 0.9 % SODIUM CHLORIDE 250 ML IV SCH (09:15)
[2022-09-09] MEDS: BUDESONIDE 0.5 MG/2 ML AMPUL.NEB NEB SCH ×2 (09:30→21:17)
[2022-09-09 09:53] LABS: Estimated Average Glucose(eAG) 143 mg/dL; Hemoglobin A1C 6.6 % Hgb (4.0-6.0)
[2022-09-09] MEDS ORDERED: IPRATROPIUM/ALBUTEROL 3 ML AMPUL.NEB NEB PRN (11:36)
[2022-09-09] MEDS: IBUPROFEN 600 MG TABLET PO PRN (15:20)
[2022-09-09] MEDS: SENNOSIDES 1 TABLET PO SCH (21:22)
[2022-09-10] MEDS: PIPERACILLIN SODIUM/TAZOBACTAM 3.375 GM in DEXTROSE 5% IN WATER 50 ML IV SCH ×4 (00:26→17:45)
[2022-09-10] MEDS: hydrALAZINE 20 MG/ML VIAL IV PRN (05:44)
[2022-09-10] MEDS: 0.9 % SODIUM CHLORIDE 10 ML SYRINGE IV SCH ×3 (05:52→20:40)
--- NOTE | 2022-09-10 07:50 | Internal Med Progress Note ---
SUBJECTIVE Subjective Patient information: Note initiated : 09/10/22 at 7:45 am Service Date, if different from initiated Date: [] Patient: Felicia Grewal 77 y/o F admitted on 09/03/22 for Shortness of breath. Chief Complaint: [] Interval history: 09/04: Patient have worsening mentations with agitations and alert and oriented x1 to person only since this morning, new finding. Her oxygen requirement also increased from 1 L/min to 5 L/min via oxygen mask. Tachycardia and tachypnea also noted. Subjective not obtained due to clinical situations. Will order CT of the head without contrast to rule out acute intracranial pathologies. Will order CT chest angiogram to rule out pulmonary embolism and any other acute intrathoracic pathologies to account for the worsening of her respiratory status. Continue supplemental oxygen therapy meanwhile. Continue dexamethasone and remdesivir for treatment of COVID-pneumonia. Continue physical therapy and Occupational Therapy evaluation and treatment for placement planning. 09/05: CT chest angiogram: negative for pulmonary embolism, worsening bilateral pneumonia. Patient deteriorate overnight, increasing oxygen requirement, and became very confused and not oriented. Placed on nonrebreather, then BiPAP. Transfer to inpatient ICU. Repeat CXR Repeat VBG Blood cultures X2, then Vancomycin/Zosyn Saline lock, Lasix 40mg IV once Ativan 1mg IV q6h PRN anxiety/agitation Continue Dexamethasone/Remdesivir Will touch base with family regarding prognosis/goal of care 09/06: Afebrile overnight. MRSA screening negative. All cultures no growth to date. Patient still on BiPAP 18/8 cmH2O RR12 FiO2 60%. Urine output ~30cc/hr/ Improving degree of shortness of breath. Denies cough or wheezing. Denies fever, chills, or sweating. Stays in ICU. d/c Vancomycin, continue Zosyn. Continue Dexamethasone/Remdesivir Continue to wean down/off BiPAP as tolerating. Heated high flow oxygen when fe eding patient. Physical and occupational therapies evaluation and treatment. 09/07: Afebrile overnight. All cultures no growth to date. Patient tolerated proning overnight. Currently on high flow oxygen 35L/min FiO2 100%. Improving degree of shortness of breath. Poor appetite. Poor energy level. Denies fever, chills, or sweating. Stays in ICU. Proning as tolerated Continue Zosyn Continue Dexamethasone/Remdesivir Continue to wean oxygen therapy as tolerating Physical and occupational therapies evaluation and treatment 09/08: Afebrile overnight. All cultures no growth to date. Patient became BiPAP depending again, currently at 18/8 cmH2O, RR 12, FiO2 60%. Subjective not obtained due to clinical situations. Stays in ICU. Proning as tolerated Continue Zosyn Continue Dexamethasone/Remdesivir BiPAP, wean down/ change to high flow oxygen 09/09 Patient thinks she is feeling a little bit better today. She continues to have productive cough. Shortness of breath slowly improving. She is still requiring the BiPAP. FiO2 slowly being titrated down. Leukocytosis improved. Elevated proBNP. CRP slightly worse. 09/10 Patient states she is breathing better however she still on 65% FiO2. While I was in there and dropped her down to 55% we will see how she does from there. She had put out good urine output yesterday with diuresis. Did get orthostatic when getting up at bedside today. We will hold off on any further diuresis for now. CRP slowly improving. Cough present but improving. Shortness of breath slowly improving. Review of Systems: denies headache/fever/chills/nausea/vomiting/chest or abdominal pain/cough/dyspnea/diarrhea. Otherwise see above. Constitutional Vitals: Vital Signs Temp Pulse Resp BP Pulse Ox O2 Del Method O2 Flow Rate 98.0 F 81 15 157/69 94 Heated High Flow Nasal Cannula 40 09/10/22 07:01 09/10/22 07:01 09/10/22 07:01 09/10/22 07:01 09/10/22 07:01 09/10/22 07:01 09/10/22 07:01 Period Temp Pulse Resp BP Sys/[place] Pulse Ox O2 Del Method O2 Flow Rate Last 24 Hr 97.1 F-98.6 F 68-95 12-31 116-171/65-117 87-97 BiPAP-Heated High Flow Nasal Ca 40-45 Intake and Output 09/09/22 09/10/22 09/10/22 19:59 03:59 11:59 Intake Total 340 50 150 Output Total 1240 290 105 Balance -900 -240 45 Weight 81.374 kg Intake & Output: Intake & Output 09/09/22 09/10/22 09/10/22 19:59 03:59 11:59 Intake Total 340 50 150 Output Total 1240 290 105 Balance -900 -240 45 Weight 81.374 kg Intake: IV 100 50 50 Zosyn 3.375 gm In Dextrose 5% 100 50 50 in Water 50 ml @ 100 mls/hr IV Q6H [facility] Rx#:[id number] Oral 240 100 Output: Urine Catheter Amount 1240 290 105 Other: Meal Dinner Urine Appearance Clear Clear Clear Cloudy Uretheral (Kilpatrick) Clear Clear Clear Sediment Urine Color Yellow Dark Yellow Dark Yellow Uretheral (Kilpatrick) Yellow Yellow Dark Anahi Stool Size Moderate Stool Color Brown Green Stool Consistency Liquid Watery # Bowel Movements 0 0 # of times incontinent of 1 Bowels Exam: General: Alert, Awake, No acute Distress, obese Eyes/N/T: EOMI, Head/Neck: neck supple, CV: RRR, No murmurs, Pulm: mild fine rales b/l bases improving, diminished BS b/l but improving Abd: soft, nontender, +BS x4 Ext: no clubbing/cyanosis, trace b/l LE edema Neuro: Alert, no focal deficits, moves all extremities, Skin: warm/dry OBJ DATA Labs 09/09/22 05:22 09/09/22 05:22 Labs: Abnormal Lab Results 09/09/22 09/09/22 09/09/22 08:19 05:22 05:22 WBC RDW 15.8 H Plt Count 572 H Immature Gran % (Auto) 1.3 H [place] # (Auto) Immature Gran # 0.14 H Absolute Neutrophils Potassium Carbon Dioxide Glucose Hemoglobin A1c 6.6 H Calcium 8.3 L GGT 57 H ALT Lactate Dehydrogenase 406 H C-Reactive Protein 6.40 H NT-Pro-B Natriuret Pep 9474.0 H Total Protein 5.4 L Albumin 2.5 L Albumin/Globulin Ratio 0.9 L 09/08/22 09/08/22 09/08/22 06:10 06:10 06:10 WBC 14.1 H RDW 15.7 H Plt Count 594 H Immature Gran % (Auto) 1.6 H [place] # (Auto) 0.93 H Immature Gran # 0.22 H Absolute Neutrophils 10.05 H Potassium 3.2 L Carbon Dioxide 19 L Glucose 108 H Hemoglobin A1c Calcium 8.2 L GGT ALT 42 H Lactate Dehydrogenase C-Reactive Protein 5.00 H NT-Pro-B Natriuret Pep Total Protein 5.6 L Albumin 2.6 L Albumin/Globulin Ratio 0.9 L Meds: Medications Albuterol/Ipratropium (Ipratropium/Albuterol 3 Ml Ampul.Neb) 3 ml NEB BID [facility] Last Admin: 09/09/22 21:17 Dose: 3 ml Albuterol/Ipratropium (Ipratropium/Albuterol 3 Ml Ampul.Neb) 3 ml NEB Q4HP PRN PRN Reason: Shortness Of Breath Artificial Tears (Carboxymethylcellulose Sodium 1 Each Droper.Gel) 1 each OU BID [facility] Last Admin: 09/09/22 21:24 Dose: 1 each Baclofen (Baclofen 10 Mg Tablet) 10 mg PO TIDP PRN PRN Reason: Muscle Spasticity Last Admin: 09/05/22 12:10 Dose: 10 mg Budesonide (Budesonide 0.5 Mg/2 Ml Ampul.Neb) 0.5 mg NEB Q12 [facility] Last Admin: 09/09/22 21:17 Dose: 0.5 mg Clotrimazole (Clotrimazole Crm 1% 1 Dose Tube) 1 dose TOPICAL BID [facility] Last Admin: 09/09/22 21:21 Dose: Not Given Dexamethasone (Dexamethasone 10 Mg/Ml Vial) 6 mg IV DAILY [facility] Last Admin: 09/09/22 08:39 Dose: 6 mg Dextrose (Dextrose 50% 50 Ml Vial) 0 ml IV UD PRN PRN Reason: Per Sliding Scale Diagnostic Test (Pha) (Accu-Chek 1 Each Strip) 1 each FS ACHS [facility] Last Admin: 09/09/22 21:20 Dose: 1 each Docusate Sodium (Docusate Sodium 100 Mg Capsule) 100 mg PO BID [facility] Last Admin: 09/09/22 21:21 Dose: Not Given Enoxaparin Sodium (Enoxaparin 40 Mg/0.4 Ml Syringe) 40 mg SQ DAILY [facility] Last Admin: 09/09/22 08:40 Dose: 40 mg Glucose (Dextrose 31 Gm Oral.Susp) 15 gm PO PRN PRN PRN Reason: Hypoglycemia Hydralazine HCl (Hydralazine 20 Mg/Ml Vial) 0 mg IV Q2HP PRN PRN Reason: Hypertension Last Admin: 09/10/22 05:44 Dose: 10 mg Piperacillin Sod/Tazobactam (Sod 3.375 gm/ Dextrose) 50 mls @ 100 mls/hr IV Q6H [facility]; Protocol Last Infusion: 09/10/22 05:51 Dose: Infused REMDESIVIR 100 mg/ Sodium (Chloride) 250 mls @ 500 mls/hr IV Q24H [facility] Stop: 09/11/22 09:29 Last Infusion: 09/09/22 10:09 Dose: Infused Ibuprofen (Ibuprofen 600 Mg Tablet) 600 mg PO QIDP PRN; Protocol PRN Reason: Per Pain Protocol/Fever > 101 Last Admin: 09/09/22 15:20 Dose: 600 mg Insulin Human Lispro (Insulin Lispro 1 Unit/0.01 Ml Unit) 0 unit SQ ACHS [facility]; Protocol Last Admin: 09/09/22 21:21 Dose: Not Given Labetalol HCl (Labetalol 5 Mg/Ml Ml) 0 mg IV Q2HP PRN PRN Reason: Hypertension Lisinopril (Lisinopril 10 Mg Tablet) 20 mg PO DAILY [facility] Last Admin: 09/09/22 08:40 Dose: 20 mg Lorazepam (Lorazepam 2 Mg/Ml Vial) 1 mg IV Q4-6HP PRN PRN Reason: ANXIETY/SEDATION Last Admin: 09/08/22 05:25 Dose: 1 mg Metoprolol Succinate (Metoprolol Succinate 25 Mg Tab.Xl.24h) 25 mg PO DAILY [facility] Last Admin: 09/09/22 08:40 Dose: 25 mg Olanzapine (Olanzapine 5 Mg Tablet) 5 mg PO Q8HP PRN PRN Reason: Agitation Ondansetron HCl (Ondansetron 4 Mg/2 Ml Vial) 4 mg IV Q6HP PRN PRN Reason: Nausea And Vomiting Pantoprazole Sodium (Pantoprazole 40 Mg Vial) 40 mg IV QAMAC [facility] Last Admin: 09/09/22 07:40 Dose: 40 mg Senna (Sennosides 1 Tablet) 2 tab PO HS [facility] Last Admin: 09/09/22 21:22 Dose: Not Given Sodium Chloride (0.9 % Sodium Chloride 10 Ml Syringe) 10 ml IV Q8 [facility] Last Admin: 09/10/22 05:52 Dose: 10 ml ABG Interpretation ABG results: 09/05/22 09/05/22 06:12 07:36 ABG Methemoglobin 0.1 L 0.3 L VBG pH 7.24 L 7.24 L VBG pCO2 36.2 L 49.0 VBG pO2 78.8 H 47.4 H VBG HCO3 15.2 L 20.6 L VBG Total CO2 16.3 L 22.1 L VBG O2 Saturation 85.3 H 74.4 H VBG Base Excess -11 L -7 L A/P Narrative A/P Narrative: Assessment and Plans: *Acute hypoxic respiratory failure: 2/2 covid pna and probably volume overload -BiPAP>Vapotherm 65%/40lpm. cont weaning as able -diuresis yesterday with good response, cont prn *CoVID pneumonia w/ARDS: -Proning as tolerated by patient, oob to chair -Dexamethasone/Remdisivir, s/p Actemra -trend inflammaotry markers -DuoNEB prn, Pulmicort -empiric abx Zosyn -f/u cxr with diffuse b/l infiltrates but with improvement *Acute delirium: improving -DDx: high dose steriod Dexamethasone vs acute intracranial pathologies such as CVA vs likely CoVID pneumonia -CT head w/o: no acute intracranial abnormalities -Treat CoVID pneumonia, see #1 *Sepsis: 2/2 above *T2DM: -HgA1c 6.6 -SSI, *HTN / HLD: BP elevated, prn IV. improving -Resume Toprol XL(increased), Resume Lisinopril (increased) , statin *Depression: -Holding Wellbutrin due to worsening mentation *Hypokalemia: improved -replace prn, f/u chemistry and trend *Generalized weakness/deconditioning: PT/OT *Obesity: BMI 33 *ppx: Lovenox / ppi Code status: Full Prognosis: Extremely Guarded Time Spent With Patient Time: Total time spent is greater than 50% in coordination of care (as documented) at patient's floor/unit and/or counseling patient: Critical Care Time: Yes Total Critical Care Time: 50 QUALITY Stroke Symptom Onset Unknown: No VTE Deep Vein Thrombosis/Pulmonary Embolism Present on Admission: No
[2022-09-10 07:56] LABS: ALT/SGPT 35 U/L (<40); AST/SGOT 32 U/L (<32); Albumin 3.1 gm/dL (3.2-5.2); Albumin/Globulin Ratio 1.1 (1.0-2.3); Alkaline Phosphatase 60 U/L (39-117); Bilirubin,Direct < 0.2 mg/dL (0-0.3); Bilirubin,Total 0.5 mg/dL (0.1-1.0); Blood Urea Nitrogen 26 mg/dL (8-23); Calcium 8.7 mg/dL (8.6-10.4); Carbon Dioxide 27 mmol/L (22-30); Chloride 101 mmol/L (96-108); Globulin 2.8 gm/dL (2.2-3.7); Glomerular Filtration Rate 84; Glucose 83 mg/dL (70-105); Lactate Dehydrogenase 390 U/L (135-225); Phosphorous 3.7 mg/dL (2.5-4.5); Triglycerides 103 mg/dL (<150); Uric Acid 3.6 mg/dL (2.5-8.0)
[2022-09-10] MEDS ORDERED: FUROSEMIDE 20 MG/2 ML VIAL IV ONE (07:58)
[2022-09-10] MEDS: INSULIN LISPRO 1 UNIT/0.01 ML UNIT SQ SCH ×4 (08:23→20:40)
[2022-09-10] MEDS: PANTOPRAZOLE 40 MG VIAL IV SCH (08:23)
[2022-09-10] MEDS: ALBUMIN HUMAN 12.5 GM/50 ML BAG IV ONE ×2 (08:24→12:38)
[2022-09-10] MEDS: IPRATROPIUM/ALBUTEROL 3 ML AMPUL.NEB NEB SCH ×3 (08:47→20:00)
[2022-09-10] MEDS: BUDESONIDE 0.5 MG/2 ML AMPUL.NEB NEB SCH ×3 (08:47→20:00)
[2022-09-10] MEDS: DOCUSATE SODIUM 100 MG CAPSULE PO SCH ×2 (09:02→19:50)
[2022-09-10] MEDS: CLOTRIMAZOLE CRM 1% 1 DOSE TUBE TOPICAL SCH ×2 (09:02→19:50)
[2022-09-10] MEDS: REMDESIVIR 100 MG in 0.9 % SODIUM CHLORIDE 250 ML IV SCH (09:06)
[2022-09-10] MEDS: DEXAMETHASONE 10 MG/ML VIAL IV SCH (10:06)
[2022-09-10] MEDS: ENOXAPARIN 40 MG/0.4 ML SYRINGE SQ SCH (10:06)
[2022-09-10] MEDS: LISINOPRIL 10 MG TABLET PO SCH (10:09)
[2022-09-10] MEDS: METOPROLOL SUCCINATE 25 MG TAB.XL.24H PO SCH (10:09)
[2022-09-10] MEDS: CARBOXYMETHYLCELLULOSE SODIUM 1 EACH DROPER.GEL OU SCH ×2 (12:17→19:51)
[2022-09-10] MEDS: SENNOSIDES 1 TABLET PO SCH (19:51)
[2022-09-11] MEDS: PIPERACILLIN SODIUM/TAZOBACTAM 3.375 GM in DEXTROSE 5% IN WATER 50 ML IV SCH ×5 (01:10→23:42)
[2022-09-11] MEDS: 0.9 % SODIUM CHLORIDE 10 ML SYRINGE IV SCH ×4 (01:50→21:23)
[2022-09-11] MEDS: PANTOPRAZOLE 40 MG VIAL IV SCH (07:07)
[2022-09-11] MEDS: INSULIN LISPRO 1 UNIT/0.01 ML UNIT SQ SCH ×4 (07:09→21:21)
[2022-09-11 07:50] LABS: ALT/SGPT 33 U/L (<40); AST/SGOT 33 U/L (<32); Albumin 2.8 gm/dL (3.2-5.2); Albumin/Globulin Ratio 0.9 (1.0-2.3); Alkaline Phosphatase 61 U/L (39-117); Bilirubin,Direct < 0.2 mg/dL (0-0.3); Bilirubin,Total 0.5 mg/dL (0.1-1.0); Blood Urea Nitrogen 33 mg/dL (8-23); Calcium 8.5 mg/dL (8.6-10.4); Carbon Dioxide 24 mmol/L (22-30); Chloride 108 mmol/L (96-108); Glomerular Filtration Rate 71; Glucose 91 mg/dL (70-105); Lactate Dehydrogenase 397 U/L (135-225); Phosphorous 3.7 mg/dL (2.5-4.5); Triglycerides 111 mg/dL (<150)
[2022-09-11] MEDS ORDERED: HYDROCHLOROTHIAZIDE 25 MG TABLET PO SCH (08:07)
[2022-09-11] MEDS ORDERED: DEXTROSE 5% IN WATER 250 ML IV ONE (08:07)
--- NOTE | 2022-09-11 08:10 | Internal Med Progress Note ---
SUBJECTIVE Subjective Patient information: Note initiated : 09/11/22 at 8:03 am Service Date, if different from initiated Date: [] Patient: Felicia Grewal 77 y/o F admitted on 09/03/22 for Shortness of breath. Chief Complaint: [] Interval history: 09/04: Patient have worsening mentations with agitations and alert and oriented x1 to person only since this morning, new finding. Her oxygen requirement also increased from 1 L/min to 5 L/min via oxygen mask. Tachycardia and tachypnea also noted. Subjective not obtained due to clinical situations. Will order CT of the head without contrast to rule out acute intracranial pathologies. Will order CT chest angiogram to rule out pulmonary embolism and any other acute intrathoracic pathologies to account for the worsening of her respiratory status. Continue supplemental oxygen therapy meanwhile. Continue dexamethasone and remdesivir for treatment of COVID-pneumonia. Continue physical therapy and Occupational Therapy evaluation and treatment for placement planning. 09/05: CT chest angiogram: negative for pulmonary embolism, worsening bilateral pneumonia. Patient deteriorate overnight, increasing oxygen requirement, and became very confused and not oriented. Placed on nonrebreather, then BiPAP. Transfer to inpatient ICU. Repeat CXR Repeat VBG Blood cultures X2, then Vancomycin/Zosyn Saline lock, Lasix 40mg IV once Ativan 1mg IV q6h PRN anxiety/agitation Continue Dexamethasone/Remdesivir Will touch base with family regarding prognosis/goal of care 09/06: Afebrile overnight. MRSA screening negative. All cultures no growth to date. Patient still on BiPAP 18/8 cmH2O RR12 FiO2 60%. Urine output ~30cc/hr/ Improving degree of shortness of breath. Denies cough or wheezing. Denies fever, chills, or sweating. Stays in ICU. d/c Vancomycin, continue Zosyn. Continue Dexamethasone/Remdesivir Continue to wean down/off BiPAP as tolerating. Heated high flow oxygen when fe eding patient. Physical and occupational therapies evaluation and treatment. 09/07: Afebrile overnight. All cultures no growth to date. Patient tolerated proning overnight. Currently on high flow oxygen 35L/min FiO2 100%. Improving degree of shortness of breath. Poor appetite. Poor energy level. Denies fever, chills, or sweating. Stays in ICU. Proning as tolerated Continue Zosyn Continue Dexamethasone/Remdesivir Continue to wean oxygen therapy as tolerating Physical and occupational therapies evaluation and treatment 09/08: Afebrile overnight. All cultures no growth to date. Patient became BiPAP depending again, currently at 18/8 cmH2O, RR 12, FiO2 60%. Subjective not obtained due to clinical situations. Stays in ICU. Proning as tolerated Continue Zosyn Continue Dexamethasone/Remdesivir BiPAP, wean down/ change to high flow oxygen 09/09 Patient thinks she is feeling a little bit better today. She continues to have productive cough. Shortness of breath slowly improving. She is still requiring the BiPAP. FiO2 slowly being titrated down. Leukocytosis improved. Elevated proBNP. CRP slightly worse. 09/10 Patient states she is breathing better however she still on 65% FiO2. While I was in there and dropped her down to 55% we will see how she does from there. She had put out good urine output yesterday with diuresis. Did get orthostatic when getting up at bedside today. We will hold off on any further diuresis for now. CRP slowly improving. Cough present but improving. Shortness of breath slowly improving. 09/11 Patient still requiring Vapotherm but gradually weaning down FiO2 and flow rate. Patient has occasional cough. Shortness of breath slowly improving but waxes and wanes overall. BMP improved after diuresis. Sodium is a bit elevated today. We will give hydrochlorothiazide today and hold other diuretics. Follow-up CRP in the morning. Patient seems to be making slow gradual improvement Review of Systems: denies headache/fever/chills/nausea/vomiting/chest or abdominal pain/cough/dyspnea/diarrhea. Otherwise see above. Constitutional Vitals: Vital Signs Temp Pulse Resp BP Pulse Ox O2 Del Method O2 Flow Rate 97.5 F 83 13 169/104 90 Heated High Flow Nasal Cannula 30 09/11/22 08:01 09/11/22 08:01 09/11/22 08:01 09/11/22 08:01 09/11/22 08:01 09/11/22 07:33 09/11/22 07:33 Period Temp Pulse Resp BP Sys/[place] Pulse Ox O2 Del Method O2 Flow Rate Last 24 Hr 97.5 F-98.6 F 68-97 13-26 80-183/42-104 88-97 Heated High Flow Nasal Ca-Heated High Flow Nasal Ca 30-40 Intake and Output 09/10/22 09/11/22 09/11/22 19:59 03:59 11:59 Intake Total 250 50 Output Total 346 165 90 Balance -96 -115 -90 Weight 81.374 kg 81.193 kg Intake & Output: Intake & Output 09/10/22 09/11/22 09/11/22 19:59 03:59 11:59 Intake Total 250 50 Output Total 346 165 90 Balance -96 -115 -90 Weight 81.374 kg 81.193 kg Intake: IV 100 50 Zosyn 3.375 gm In Dextrose 5% 100 50 in Water 50 ml @ 100 mls/hr IV Q6H [facility] Rx#:[id number] Oral 150 Output: Urine Catheter Amount 346 165 90 Other: Meal Lunch Percent of Meal Consumed 50% Feeding Ability Assist with Tray Set Up Urine Appearance Clear Clear Clear Uretheral (Kilpatrick) Clear Clear Clear Urine Color Dark Yellow Light Anahi Dark Yellow Uretheral (Kilpatrick) Dark Yellow Dark Yellow Dark Yellow Urine Odor Normal Stool Size Small Moderate Stool Color Brown Green Stool Consistency Loose Soft # Bowel Movements 1 Exam: General: Alert, Awake, No acute Distress, obese Eyes/N/T: EOMI, Head/Neck: neck supple, CV: RRR, No murmurs, Pulm: mild fine rales b/l bases improving, better aeration, no wheezing Abd: soft, nontender, +BS x4 Ext: no clubbing/cyanosis, trace b/l LE edema Neuro: Alert, no focal deficits, moves all extremities, Skin: warm/dry OBJ DATA Labs 09/09/22 05:22 09/11/22 05:20 Labs: Abnormal Lab Results 09/11/22 09/10/22 09/09/22 05:20 05:17 08:19 RDW Plt Count Immature Gran % (Auto) Immature Gran # Sodium 147 H Potassium Carbon Dioxide BUN 33 H 26 H Glucose Hemoglobin A1c 6.6 H Calcium 8.5 L GGT 61 H 45 H AST 33 H 32 H ALT Lactate Dehydrogenase 397 H 390 H C-Reactive Protein 3.60 H NT-Pro-B Natriuret Pep 4750.0 H 9474.0 H Total Protein 5.8 L Albumin 2.8 L 3.1 L Albumin/Globulin Ratio 0.9 L 09/09/22 09/09/22 09/08/22 05:22 05:22 06:10 RDW 15.8 H Plt Count 572 H Immature Gran % (Auto) 1.3 H Immature Gran # 0.14 H Sodium Potassium Carbon Dioxide BUN Glucose Hemoglobin A1c Calcium 8.3 L GGT 57 H AST ALT Lactate Dehydrogenase 406 H C-Reactive Protein 6.40 H 5.00 H NT-Pro-B Natriuret Pep Total Protein 5.4 L Albumin 2.5 L Albumin/Globulin Ratio 0.9 L 09/08/22 06:10 RDW Plt Count Immature Gran % (Auto) Immature Gran # Sodium Potassium 3.2 L Carbon Dioxide 19 L BUN Glucose 108 H Hemoglobin A1c Calcium 8.2 L GGT AST ALT 42 H Lactate Dehydrogenase C-Reactive Protein NT-Pro-B Natriuret Pep Total Protein 5.6 L Albumin 2.6 L Albumin/Globulin Ratio 0.9 L Meds: Medications Albuterol/Ipratropium (Ipratropium/Albuterol 3 Ml Ampul.Neb) 3 ml NEB BID [facility] Last Admin: 09/10/22 20:00 Dose: 3 ml Albuterol/Ipratropium (Ipratropium/Albuterol 3 Ml Ampul.Neb) 3 ml NEB Q4HP PRN PRN Reason: Shortness Of Breath Artificial Tears (Carboxymethylcellulose Sodium 1 Each Droper.Gel) 1 each OU BID [facility] Last Admin: 09/10/22 19:51 Dose: 1 each Baclofen (Baclofen 10 Mg Tablet) 10 mg PO TIDP PRN PRN Reason: Muscle Spasticity Last Admin: 09/05/22 12:10 Dose: 10 mg Budesonide (Budesonide 0.5 Mg/2 Ml Ampul.Neb) 0.5 mg NEB Q12 [facility] Last Admin: 09/10/22 20:00 Dose: 0.5 mg Clotrimazole (Clotrimazole Crm 1% 1 Dose Tube) 1 dose TOPICAL BID [facility] Last Admin: 09/10/22 19:50 Dose: Not Given Dexamethasone (Dexamethasone 10 Mg/Ml Vial) 6 mg IV DAILY [facility] Last Admin: 09/10/22 10:06 Dose: 6 mg Dextrose (Dextrose 50% 50 Ml Vial) 0 ml IV UD PRN PRN Reason: Per Sliding Scale Diagnostic Test (Pha) (Accu-Chek 1 Each Strip) 1 each FS ACHS [facility] Last Admin: 09/11/22 07:09 Dose: 1 each Docusate Sodium (Docusate Sodium 100 Mg Capsule) 100 mg PO BID [facility] Last Admin: 09/10/22 19:50 Dose: Not Given Enoxaparin Sodium (Enoxaparin 40 Mg/0.4 Ml Syringe) 40 mg SQ DAILY [facility] Last Admin: 09/10/22 10:06 Dose: 40 mg Glucose (Dextrose 31 Gm Oral.Susp) 15 gm PO PRN PRN PRN Reason: Hypoglycemia Hydralazine HCl (Hydralazine 20 Mg/Ml Vial) 0 mg IV Q2HP PRN PRN Reason: Hypertension Last Admin: 09/10/22 05:44 Dose: 10 mg Piperacillin Sod/Tazobactam (Sod 3.375 gm/ Dextrose) 50 mls @ 100 mls/hr IV Q6H [facility]; Protocol Last Admin: 09/11/22 06:22 Dose: 100 mls/hr REMDESIVIR 100 mg/ Sodium (Chloride) 250 mls @ 500 mls/hr IV Q24H [facility] Stop: 09/11/22 09:29 Last Infusion: 09/10/22 09:40 Dose: Infused Ibuprofen (Ibuprofen 600 Mg Tablet) 600 mg PO QIDP PRN; Protocol PRN Reason: Per Pain Protocol/Fever > 101 Last Admin: 09/09/22 15:20 Dose: 600 mg Insulin Human Lispro (Insulin Lispro 1 Unit/0.01 Ml Unit) 0 unit SQ ACHS [facility]; Protocol Last Admin: 09/11/22 07:09 Dose: Not Given Labetalol HCl (Labetalol 5 Mg/Ml Ml) 0 mg IV Q2HP PRN PRN Reason: Hypertension Lisinopril (Lisinopril 10 Mg Tablet) 20 mg PO DAILY [facility] Last Admin: 09/10/22 10:09 Dose: Not Given Lorazepam (Lorazepam 2 Mg/Ml Vial) 1 mg IV Q4-6HP PRN PRN Reason: ANXIETY/SEDATION Last Admin: 09/08/22 05:25 Dose: 1 mg Metoprolol Succinate (Metoprolol Succinate 25 Mg Tab.Xl.24h) 25 mg PO DAILY [facility] Last Admin: 09/10/22 10:09 Dose: 25 mg Olanzapine (Olanzapine 5 Mg Tablet) 5 mg PO Q8HP PRN PRN Reason: Agitation Ondansetron HCl (Ondansetron 4 Mg/2 Ml Vial) 4 mg IV Q6HP PRN PRN Reason: Nausea And Vomiting Pantoprazole Sodium (Pantoprazole 40 Mg Vial) 40 mg IV QAMAC [facility] Last Admin: 09/11/22 07:07 Dose: 40 mg Senna (Sennosides 1 Tablet) 2 tab PO HS [facility] Last Admin: 09/10/22 19:51 Dose: Not Given Sodium Chloride (0.9 % Sodium Chloride 10 Ml Syringe) 10 ml IV Q8 [facility] Last Admin: 09/11/22 06:22 Dose: 10 ml ABG Interpretation ABG results: 09/05/22 09/05/22 06:12 07:36 ABG Methemoglobin 0.1 L 0.3 L VBG pH 7.24 L 7.24 L VBG pCO2 36.2 L 49.0 VBG pO2 78.8 H 47.4 H VBG HCO3 15.2 L 20.6 L VBG Total CO2 16.3 L 22.1 L VBG O2 Saturation 85.3 H 74.4 H VBG Base Excess -11 L -7 L A/P Narrative A/P Narrative: Assessment and Plans: *Acute hypoxic respiratory failure: 2/2 covid pna and probably volume overload. Slow progress -BiPAP>Vapotherm 55%/35lpm o/n, cont weaning as able -diuresis yesterday with good response, cont prn IV *CoVID pneumonia w/ARDS: -Proning as tolerated by patient, oob to chair -Dexamethasone/Remdisivir, s/p Actemra -trend inflammaotry markers -DuoNEB prn, Pulmicort -empiric abx Zosyn -f/u cxr with diffuse b/l infiltrates but with improvement *Acute delirium: improved -DDx: high dose steriod Dexamethasone vs acute intracranial pathologies such as CVA vs likely CoVID pneumonia -CT head w/o: no acute intracranial abnormalities -Treat CoVID pneumonia, see #1 *Sepsis: 2/2 above *T2DM: -HgA1c 6.6, -SSI, *HTN / HLD: BP elevated, prn IV. improving -Resume Toprol XL(increased), Resume Lisinopril (increased) , statin *Depression: -Holding Wellbutrin due to worsening mentation *Hypokalemia/HYpernatremia: -replace prn, f/u chemistry and trend, f/u na *Generalized weakness/deconditioning: PT/OT *Obesity: BMI 33 *ppx: Lovenox / ppi Code status: Full Prognosis: Guarded Time Spent With Patient Time: Total time spent is greater than 50% in coordination of care (as documented) at patient's floor/unit and/or counseling patient: Critical Care Time: Yes Total Critical Care Time: 50 QUALITY Stroke Symptom Onset Unknown: No VTE Deep Vein Thrombosis/Pulmonary Embolism Present on Admission: No
[2022-09-11] MEDS: BUDESONIDE 0.5 MG/2 ML AMPUL.NEB NEB SCH ×2 (08:11→21:22)
[2022-09-11] MEDS: IPRATROPIUM/ALBUTEROL 3 ML AMPUL.NEB NEB SCH ×2 (08:11→21:22)
[2022-09-11] MEDS: DEXAMETHASONE 10 MG/ML VIAL IV SCH (09:08)
[2022-09-11] MEDS: REMDESIVIR 100 MG in 0.9 % SODIUM CHLORIDE 250 ML IV SCH (09:08)
[2022-09-11] MEDS: LISINOPRIL 10 MG TABLET PO SCH (09:09)
[2022-09-11] MEDS: ENOXAPARIN 40 MG/0.4 ML SYRINGE SQ SCH (09:09)
[2022-09-11] MEDS: METOPROLOL SUCCINATE 25 MG TAB.XL.24H PO SCH (09:09)
[2022-09-11] MEDS: hydrALAZINE 20 MG/ML VIAL IV PRN (09:09)
[2022-09-11] MEDS: CLOTRIMAZOLE CRM 1% 1 DOSE TUBE TOPICAL SCH ×2 (09:10→21:22)
[2022-09-11] MEDS: CARBOXYMETHYLCELLULOSE SODIUM 1 EACH DROPER.GEL OU SCH ×2 (09:10→21:23)
[2022-09-11] MEDS: DOCUSATE SODIUM 100 MG CAPSULE PO SCH ×2 (09:10→21:21)
[2022-09-11] MEDS: SENNOSIDES 1 TABLET PO SCH (21:23)
[2022-09-12] MEDS: LORazepam 2 MG/ML VIAL IV PRN (00:14)
[2022-09-12] MEDS: 0.9 % SODIUM CHLORIDE 10 ML SYRINGE IV SCH ×3 (05:21→21:55)
[2022-09-12] MEDS: PIPERACILLIN SODIUM/TAZOBACTAM 3.375 GM in DEXTROSE 5% IN WATER 50 ML IV SCH ×3 (05:21→17:40)
[2022-09-12] MEDS: INSULIN LISPRO 1 UNIT/0.01 ML UNIT SQ SCH ×4 (07:04→21:55)
[2022-09-12 07:21] LABS: ALT/SGPT 34 U/L (<40); AST/SGOT 34 U/L (<32); Albumin 2.8 gm/dL (3.2-5.2); Alkaline Phosphatase 61 U/L (39-117); Bilirubin,Direct < 0.2 mg/dL (0-0.3); Bilirubin,Total 0.5 mg/dL (0.1-1.0); Blood Urea Nitrogen 33 mg/dL (8-23); Calcium 8.5 mg/dL (8.6-10.4); Carbon Dioxide 25 mmol/L (22-30); Chloride 104 mmol/L (96-108); Globulin 2.9 gm/dL (2.2-3.7); Glomerular Filtration Rate 71; Glucose 100 mg/dL (70-105); Lactate Dehydrogenase 446 U/L (135-225); Phosphorous 3.4 mg/dL (2.5-4.5); Triglycerides 104 mg/dL (<150); Uric Acid 3.8 mg/dL (2.5-8.0)
--- NOTE | 2022-09-12 08:12 | Internal Med Progress Note ---
SUBJECTIVE Subjective Patient information: Note initiated : 09/12/22 at 8:10 am Service Date, if different from initiated Date: [] Patient: Felicia Grewal 77 y/o F admitted on 09/03/22 for Shortness of breath. Chief Complaint: [] Interval history: 09/04: Patient have worsening mentations with agitations and alert and oriented x1 to person only since this morning, new finding. Her oxygen requirement also increased from 1 L/min to 5 L/min via oxygen mask. Tachycardia and tachypnea also noted. Subjective not obtained due to clinical situations. Will order CT of the head without contrast to rule out acute intracranial pathologies. Will order CT chest angiogram to rule out pulmonary embolism and any other acute intrathoracic pathologies to account for the worsening of her respiratory status. Continue supplemental oxygen therapy meanwhile. Continue dexamethasone and remdesivir for treatment of COVID-pneumonia. Continue physical therapy and Occupational Therapy evaluation and treatment for placement planning. 09/05: CT chest angiogram: negative for pulmonary embolism, worsening bilateral pneumonia. Patient deteriorate overnight, increasing oxygen requirement, and became very confused and not oriented. Placed on nonrebreather, then BiPAP. Transfer to inpatient ICU. Repeat CXR Repeat VBG Blood cultures X2, then Vancomycin/Zosyn Saline lock, Lasix 40mg IV once Ativan 1mg IV q6h PRN anxiety/agitation Continue Dexamethasone/Remdesivir Will touch base with family regarding prognosis/goal of care 09/06: Afebrile overnight. MRSA screening negative. All cultures no growth to date. Patient still on BiPAP 18/8 cmH2O RR12 FiO2 60%. Urine output ~30cc/hr/ Improving degree of shortness of breath. Denies cough or wheezing. Denies fever, chills, or sweating. Stays in ICU. d/c Vancomycin, continue Zosyn. Continue Dexamethasone/Remdesivir Continue to wean down/off BiPAP as tolerating. Heated high flow oxygen when fe eding patient. Physical and occupational therapies evaluation and treatment. 09/07: Afebrile overnight. All cultures no growth to date. Patient tolerated proning overnight. Currently on high flow oxygen 35L/min FiO2 100%. Improving degree of shortness of breath. Poor appetite. Poor energy level. Denies fever, chills, or sweating. Stays in ICU. Proning as tolerated Continue Zosyn Continue Dexamethasone/Remdesivir Continue to wean oxygen therapy as tolerating Physical and occupational therapies evaluation and treatment 09/08: Afebrile overnight. All cultures no growth to date. Patient became BiPAP depending again, currently at 18/8 cmH2O, RR 12, FiO2 60%. Subjective not obtained due to clinical situations. Stays in ICU. Proning as tolerated Continue Zosyn Continue Dexamethasone/Remdesivir BiPAP, wean down/ change to high flow oxygen 09/09 Patient thinks she is feeling a little bit better today. She continues to have productive cough. Shortness of breath slowly improving. She is still requiring the BiPAP. FiO2 slowly being titrated down. Leukocytosis improved. Elevated proBNP. CRP slightly worse. 09/10 Patient states she is breathing better however she still on 65% FiO2. While I was in there and dropped her down to 55% we will see how she does from there. She had put out good urine output yesterday with diuresis. Did get orthostatic when getting up at bedside today. We will hold off on any further diuresis for now. CRP slowly improving. Cough present but improving. Shortness of breath slowly improving. 09/11 Patient still requiring Vapotherm but gradually weaning down FiO2 and flow rate. Patient has occasional cough. Shortness of breath slowly improving but waxes and wanes overall. BMP improved after diuresis. Sodium is a bit elevated today. We will give hydrochlorothiazide today and hold other diuretics. Follow-up CRP in the morning. Patient seems to be making slow gradual improvement. 09/12 Able to transition oxygen to the wall. Patient's shortness of breath continues to improve. Mild cough. Sodium improved today. Inflammatory markers improving. Review of Systems: denies headache/fever/chills/nausea/vomiting/chest or abdominal pain/cough/dyspnea/diarrhea. Otherwise see above. Constitutional Vitals: Vital Signs Temp Pulse Resp BP Pulse Ox O2 Del Method O2 Flow Rate 97.1 F 70 16 136/62 94 Heated High Flow Nasal Cannula 09/12/22 03:47 09/12/22 07:01 09/12/22 07:01 09/12/22 07:01 09/12/22 07:01 09/12/22 02:00 09/12/22 02:00 Period Temp Pulse Resp BP Sys/[place] Pulse Ox O2 Del Method O2 Flow Rate Last 24 Hr 97 F-97.3 F 65-93 13-26 97-171/41-104 84-96 Heated High Flow Nasal Ca-High Flow Nasal Cannula 15-20 Intake and Output 09/11/22 09/12/22 09/12/22 19:59 03:59 11:59 Intake Total 670 50 50 Output Total 437 330 90 Balance 233 -280 -40 Weight 81.675 kg Intake & Output: Intake & Output 09/11/22 09/12/22 09/12/22 19:59 03:59 11:59 Intake Total 670 50 50 Output Total 437 330 90 Balance 233 -280 -40 Weight 81.675 kg Intake: Nourishment/Supplement quantity 120 (ml) IV 350 50 50 Dextrose 5% in Water 250 ml @ 250 100 mls/hr IV .Q2H30M ONE Rx#: [id number] Zosyn 3.375 gm In Dextrose 5% 100 50 50 in Water 50 ml @ 100 mls/hr IV Q6H [facility] Rx#:[id number] Oral 200 Output: Urine Catheter Amount 382 300 90 Void Amount 55 30 Other: Meal Dinner Percent of Meal Consumed 50% Feeding Ability Independent Nourishment/Supplement name breakfast essential Urine Appearance Clear Clear Clear Uretheral (Kilpatrick) Clear Clear Urine Color Yellow Yellow Yellow Uretheral (Kilpatrick) Dark Yellow Dark Yellow Urine Odor Normal Normal Normal Stool Size Moderate Stool Color Brown Green Stool Consistency Soft # Bowel Movements 1 Exam: General: Alert, Awake, No acute Distress, obese Eyes/N/T: EOMI, Head/Neck: neck supple, CV: RRR, No murmurs, Pulm: mild fine rales b/l bases improved, better aeration, no wheezing Abd: soft, nontender, +BS x4 Ext: no clubbing/cyanosis, trace b/l LE edema Neuro: Alert, no focal deficits, moves all extremities, Skin: warm/dry OBJ DATA Labs 09/09/22 05:22 09/12/22 05:22 Labs: Abnormal Lab Results 09/12/22 09/11/22 09/10/22 05:22 05:20 05:17 Sodium 147 H BUN 33 H 33 H 26 H Hemoglobin A1c Calcium 8.5 L 8.5 L GGT 44 H 61 H 45 H AST 34 H 33 H 32 H Lactate Dehydrogenase 446 H 397 H 390 H C-Reactive Protein 0.90 H 3.60 H NT-Pro-B Natriuret Pep 4750.0 H Total Protein 5.7 L 5.8 L Albumin 2.8 L 2.8 L 3.1 L Albumin/Globulin Ratio 0.9 L 09/09/22 08:19 Sodium BUN Hemoglobin A1c 6.6 H Calcium GGT AST Lactate Dehydrogenase C-Reactive Protein NT-Pro-B Natriuret Pep 9474.0 H Total Protein Albumin Albumin/Globulin Ratio Meds: Medications Albuterol/Ipratropium (Ipratropium/Albuterol 3 Ml Ampul.Neb) 3 ml NEB BID [facility] Last Admin: 09/11/22 21:22 Dose: 3 ml Albuterol/Ipratropium (Ipratropium/Albuterol 3 Ml Ampul.Neb) 3 ml NEB Q4HP PRN PRN Reason: Shortness Of Breath Artificial Tears (Carboxymethylcellulose Sodium 1 Each Droper.Gel) 1 each OU BID [facility] Last Admin: 09/11/22 21:23 Dose: Not Given Baclofen (Baclofen 10 Mg Tablet) 10 mg PO TIDP PRN PRN Reason: Muscle Spasticity Last Admin: 09/05/22 12:10 Dose: 10 mg Budesonide (Budesonide 0.5 Mg/2 Ml Ampul.Neb) 0.5 mg NEB Q12 [facility] Last Admin: 09/11/22 21:22 Dose: 0.5 mg Clotrimazole (Clotrimazole Crm 1% 1 Dose Tube) 1 dose TOPICAL BID [facility] Last Admin: 09/11/22 21:22 Dose: Not Given Dexamethasone (Dexamethasone 10 Mg/Ml Vial) 6 mg IV DAILY [facility] Last Admin: 09/11/22 09:08 Dose: 6 mg Dextrose (Dextrose 50% 50 Ml Vial) 0 ml IV UD PRN PRN Reason: Per Sliding Scale Diagnostic Test (Pha) (Accu-Chek 1 Each Strip) 1 each FS ACHS [facility] Last Admin: 09/12/22 07:04 Dose: 1 each Docusate Sodium (Docusate Sodium 100 Mg Capsule) 100 mg PO BID [facility] Last Admin: 09/11/22 21:21 Dose: Not Given Enoxaparin Sodium (Enoxaparin 40 Mg/0.4 Ml Syringe) 40 mg SQ DAILY [facility] Last Admin: 09/11/22 09:09 Dose: 40 mg Glucose (Dextrose 31 Gm Oral.Susp) 15 gm PO PRN PRN PRN Reason: Hypoglycemia Hydralazine HCl (Hydralazine 20 Mg/Ml Vial) 0 mg IV Q2HP PRN PRN Reason: Hypertension Last Admin: 09/11/22 09:09 Dose: 20 mg Piperacillin Sod/Tazobactam (Sod 3.375 gm/ Dextrose) 50 mls @ 100 mls/hr IV Q6H [facility]; Protocol Last Infusion: 09/12/22 07:07 Dose: Infused Ibuprofen (Ibuprofen 600 Mg Tablet) 600 mg PO QIDP PRN; Protocol PRN Reason: Per Pain Protocol/Fever > 101 Last Admin: 09/09/22 15:20 Dose: 600 mg Insulin Human Lispro (Insulin Lispro 1 Unit/0.01 Ml Unit) 0 unit SQ ACHS [facility]; Protocol Last Admin: 09/12/22 07:04 Dose: Not Given Labetalol HCl (Labetalol 5 Mg/Ml Ml) 0 mg IV Q2HP PRN PRN Reason: Hypertension Lisinopril (Lisinopril 10 Mg Tablet) 20 mg PO DAILY [facility] Last Admin: 09/11/22 09:09 Dose: 20 mg Lorazepam (Lorazepam 2 Mg/Ml Vial) 1 mg IV Q4-6HP PRN PRN Reason: ANXIETY/SEDATION Last Admin: 09/12/22 00:14 Dose: 1 mg Metoprolol Succinate (Metoprolol Succinate 25 Mg Tab.Xl.24h) 25 mg PO DAILY [facility] Last Admin: 09/11/22 09:09 Dose: 25 mg Olanzapine (Olanzapine 5 Mg Tablet) 5 mg PO Q8HP PRN PRN Reason: Agitation Ondansetron HCl (Ondansetron 4 Mg/2 Ml Vial) 4 mg IV Q6HP PRN PRN Reason: Nausea And Vomiting Pantoprazole Sodium (Pantoprazole 40 Mg Vial) 40 mg IV QAMAC [facility] Last Admin: 09/11/22 07:07 Dose: 40 mg Senna (Sennosides 1 Tablet) 2 tab PO HS [facility] Last Admin: 09/11/22 21:23 Dose: Not Given Sodium Chloride (0.9 % Sodium Chloride 10 Ml Syringe) 10 ml IV Q8 [facility] Last Admin: 09/12/22 05:21 Dose: 10 ml ABG Interpretation ABG results: 09/05/22 09/05/22 06:12 07:36 ABG Methemoglobin 0.1 L 0.3 L VBG pH 7.24 L 7.24 L VBG pCO2 36.2 L 49.0 VBG pO2 78.8 H 47.4 H VBG HCO3 15.2 L 20.6 L VBG Total CO2 16.3 L 22.1 L VBG O2 Saturation 85.3 H 74.4 H VBG Base Excess -11 L -7 L A/P Narrative A/P Narrative: Assessment and Plans: *Acute hypoxic respiratory failure: 2/2 covid pna and probably volume overload. Slow progress -BiPAP>Vapotherm 40%/15lpm o/n, started on wall O2 today HFNC -prn diuresis *CoVID pneumonia w/ARDS: -Proning as tolerated by patient, oob to chair -Dexamethasone finish tomorrow/Remdisivir finished, s/p Actemra -trend inflammaotry markers, improving -DuoNEB prn, Pulmicort -d/c Abx after today -f/u cxr with diffuse b/l infiltrates but with improvement *Acute delirium: resolved -DDx: high dose steriod Dexamethasone vs acute intracranial pathologies such as CVA vs likely CoVID pneumonia -CT head w/o: no acute intracranial abnormalities -Treat CoVID pneumonia, see #1 *Sepsis: 2/2 above *T2DM: -HgA1c 6.6, -SSI, *HTN / HLD: BP elevated, prn IV. improving -Resume Toprol XL(increased), Resume Lisinopril (increased) , statin *Depression: -Holding Wellbutrin due to worsening mentation *Hypokalemia/HYpernatremia: resolved -replace prn, f/u chemistry and trend, f/u na *Generalized weakness/deconditioning: PT/OT *Obesity: BMI 33 *ppx: Lovenox / ppi Code status: Full Prognosis: Guarded Time Spent With Patient Time: Total time spent is greater than 50% in coordination of care (as documented) at patient's floor/unit and/or counseling patient: Subsequent: Total time with patient: 50 - 65 Minutes QUALITY Stroke Symptom Onset Unknown: No VTE Deep Vein Thrombosis/Pulmonary Embolism Present on Admission: No
[2022-09-12] MEDS: METOPROLOL SUCCINATE 25 MG TAB.XL.24H PO SCH (08:45)
[2022-09-12] MEDS: DEXAMETHASONE 10 MG/ML VIAL IV SCH (08:45)
[2022-09-12] MEDS: LISINOPRIL 10 MG TABLET PO SCH (08:45)
[2022-09-12] MEDS: ENOXAPARIN 40 MG/0.4 ML SYRINGE SQ SCH (08:45)
[2022-09-12] MEDS: DOCUSATE SODIUM 100 MG CAPSULE PO SCH ×3 (08:46→19:09)
[2022-09-12] MEDS: PANTOPRAZOLE 40 MG VIAL IV SCH (08:47)
[2022-09-12] MEDS: CARBOXYMETHYLCELLULOSE SODIUM 1 EACH DROPER.GEL OU SCH ×2 (08:48→19:09)
[2022-09-12] MEDS: CLOTRIMAZOLE CRM 1% 1 DOSE TUBE TOPICAL SCH ×2 (08:48→19:09)
[2022-09-12] MEDS: IPRATROPIUM/ALBUTEROL 3 ML AMPUL.NEB NEB SCH ×2 (09:12→20:51)
[2022-09-12] MEDS: BUDESONIDE 0.5 MG/2 ML AMPUL.NEB NEB SCH ×2 (09:12→20:53)
[2022-09-12] MEDS: SENNOSIDES 1 TABLET PO SCH (19:09)
[2022-09-13] MEDS: 0.9 % SODIUM CHLORIDE 10 ML SYRINGE IV SCH ×3 (05:12→23:47)
--- NOTE | 2022-09-13 07:33 | Internal Med Progress Note ---
SUBJECTIVE Subjective Patient information: Note initiated : 09/13/22 at 7:31 am Service Date, if different from initiated Date: [] Patient: Felicia Grewal 77 y/o F admitted on 09/03/22 for Shortness of breath. Chief Complaint: [] Interval history: 09/04: Patient have worsening mentations with agitations and alert and oriented x1 to person only since this morning, new finding. Her oxygen requirement also increased from 1 L/min to 5 L/min via oxygen mask. Tachycardia and tachypnea also noted. Subjective not obtained due to clinical situations. Will order CT of the head without contrast to rule out acute intracranial pathologies. Will order CT chest angiogram to rule out pulmonary embolism and any other acute intrathoracic pathologies to account for the worsening of her respiratory status. Continue supplemental oxygen therapy meanwhile. Continue dexamethasone and remdesivir for treatment of COVID-pneumonia. Continue physical therapy and Occupational Therapy evaluation and treatment for placement planning. 09/05: CT chest angiogram: negative for pulmonary embolism, worsening bilateral pneumonia. Patient deteriorate overnight, increasing oxygen requirement, and became very confused and not oriented. Placed on nonrebreather, then BiPAP. Transfer to inpatient ICU. Repeat CXR Repeat VBG Blood cultures X2, then Vancomycin/Zosyn Saline lock, Lasix 40mg IV once Ativan 1mg IV q6h PRN anxiety/agitation Continue Dexamethasone/Remdesivir Will touch base with family regarding prognosis/goal of care 09/06: Afebrile overnight. MRSA screening negative. All cultures no growth to date. Patient still on BiPAP 18/8 cmH2O RR12 FiO2 60%. Urine output ~30cc/hr/ Improving degree of shortness of breath. Denies cough or wheezing. Denies fever, chills, or sweating. Stays in ICU. d/c Vancomycin, continue Zosyn. Continue Dexamethasone/Remdesivir Continue to wean down/off BiPAP as tolerating. Heated high flow oxygen when fe eding patient. Physical and occupational therapies evaluation and treatment. 09/07: Afebrile overnight. All cultures no growth to date. Patient tolerated proning overnight. Currently on high flow oxygen 35L/min FiO2 100%. Improving degree of shortness of breath. Poor appetite. Poor energy level. Denies fever, chills, or sweating. Stays in ICU. Proning as tolerated Continue Zosyn Continue Dexamethasone/Remdesivir Continue to wean oxygen therapy as tolerating Physical and occupational therapies evaluation and treatment 09/08: Afebrile overnight. All cultures no growth to date. Patient became BiPAP depending again, currently at 18/8 cmH2O, RR 12, FiO2 60%. Subjective not obtained due to clinical situations. Stays in ICU. Proning as tolerated Continue Zosyn Continue Dexamethasone/Remdesivir BiPAP, wean down/ change to high flow oxygen 09/09 Patient thinks she is feeling a little bit better today. She continues to have productive cough. Shortness of breath slowly improving. She is still requiring the BiPAP. FiO2 slowly being titrated down. Leukocytosis improved. Elevated proBNP. CRP slightly worse. 09/10 Patient states she is breathing better however she still on 65% FiO2. While I was in there and dropped her down to 55% we will see how she does from there. She had put out good urine output yesterday with diuresis. Did get orthostatic when getting up at bedside today. We will hold off on any further diuresis for now. CRP slowly improving. Cough present but improving. Shortness of breath slowly improving. 09/11 Patient still requiring Vapotherm but gradually weaning down FiO2 and flow rate. Patient has occasional cough. Shortness of breath slowly improving but waxes and wanes overall. BMP improved after diuresis. Sodium is a bit elevated today. We will give hydrochlorothiazide today and hold other diuretics. Follow-up CRP in the morning. Patient seems to be making slow gradual improvement. 09/12 Able to transition oxygen to the wall. Patient's shortness of breath continues to improve. Mild cough. Sodium improved today. Inflammatory markers improving. 09/13 Patient continues to improve on 3 L nasal cannula this morning we will decrease to 1.5 L since yesterday's. Occasional cough. Shortness of breath improved and significant at rest. No overnight events or new complaints. Review of Systems: denies headache/fever/chills/nausea/vomiting/chest or abdominal pain/cough/dyspnea/diarrhea. Otherwise see above. Constitutional Vitals: Vital Signs Temp Pulse Resp BP Pulse Ox O2 Del Method O2 Flow Rate 98 F 71 14 163/69 94 High Flow Nasal Cannula 3 09/13/22 04:02 09/13/22 06:00 09/13/22 06:00 09/13/22 06:00 09/13/22 06:00 09/13/22 06:00 09/13/22 06:00 Period Temp Pulse Resp BP Sys/[place] Pulse Ox O2 Del Method O2 Flow Rate Last 24 Hr 96.8 F-98.8 F 64-93 11-27 82-163/49-107 89-98 Heated High Flow Nasal Ca-Nasal Cannula 3-20 Intake and Output 09/12/22 09/13/22 09/13/22 19:59 03:59 11:59 Intake Total 820 Output Total 206 288 75 Balance 614 -288 -75 Weight 82.129 kg Intake & Output: Intake & Output 09/12/22 09/13/22 09/13/22 19:59 03:59 11:59 Intake Total 820 Output Total 206 288 75 Balance 614 -288 -75 Weight 82.129 kg Intake: IV 100 Zosyn 3.375 gm In Dextrose 5% 100 in Water 50 ml @ 100 mls/hr IV Q6H [facility] Rx#:[id number] Oral 720 Output: Urine Catheter Amount 206 288 75 Other: Meal Dinner Percent of Meal Consumed 100% Feeding Ability Assist with Tray Set Up Urine Appearance Clear Clear Clear Uretheral (Kilpatrick) Clear Clear Urine Color Dark Yellow Dark Yellow Dark Yellow Uretheral (Kilpatrick) Dark Yellow Dark Yellow Urine Odor Normal Stool Size Moderate Stool Color Brown Green Stool Consistency Soft Exam: General: Alert, Awake, No acute Distress, obese Eyes/N/T: EOMI, Head/Neck: neck supple, CV: RRR, No murmurs, Pulm: mild fine rales b/l bases improved, no wheezing Abd: soft, nontender, +BS x4 Ext: no clubbing/cyanosis, trace b/l LE edema Neuro: Alert, no focal deficits, moves all extremities, Skin: warm/dry OBJ DATA Labs 09/09/22 05:22 09/12/22 05:22 Labs: Abnormal Lab Results 09/12/22 09/11/22 09/10/22 05:22 05:20 05:17 Sodium 147 H BUN 33 H 33 H 26 H Calcium 8.5 L 8.5 L GGT 44 H 61 H 45 H AST 34 H 33 H 32 H Lactate Dehydrogenase 446 H 397 H 390 H C-Reactive Protein 0.90 H 3.60 H NT-Pro-B Natriuret Pep 4750.0 H Total Protein 5.7 L 5.8 L Albumin 2.8 L 2.8 L 3.1 L Albumin/Globulin Ratio 0.9 L Meds: Medications Albuterol/Ipratropium (Ipratropium/Albuterol 3 Ml Ampul.Neb) 3 ml NEB BID [facility] Last Admin: 09/12/22 20:51 Dose: 3 ml Albuterol/Ipratropium (Ipratropium/Albuterol 3 Ml Ampul.Neb) 3 ml NEB Q4HP PRN PRN Reason: Shortness Of Breath Artificial Tears (Carboxymethylcellulose Sodium 1 Each Droper.Gel) 1 each OU BID [facility] Last Admin: 09/12/22 19:09 Dose: Not Given Baclofen (Baclofen 10 Mg Tablet) 10 mg PO TIDP PRN PRN Reason: Muscle Spasticity Last Admin: 09/05/22 12:10 Dose: 10 mg Budesonide (Budesonide 0.5 Mg/2 Ml Ampul.Neb) 0.5 mg NEB Q12 [facility] Last Admin: 09/12/22 20:53 Dose: 0.5 mg Clotrimazole (Clotrimazole Crm 1% 1 Dose Tube) 1 dose TOPICAL BID [facility] Last Admin: 09/12/22 19:09 Dose: Not Given Dexamethasone (Dexamethasone 10 Mg/Ml Vial) 6 mg IV DAILY [facility] Stop: 09/13/22 12:00 Last Admin: 09/12/22 08:45 Dose: 6 mg Dextrose (Dextrose 50% 50 Ml Vial) 0 ml IV UD PRN PRN Reason: Per Sliding Scale Diagnostic Test (Pha) (Accu-Chek 1 Each Strip) 1 each FS ACHS [facility] Last Admin: 09/12/22 21:55 Dose: 1 each Docusate Sodium (Docusate Sodium 100 Mg Capsule) 100 mg PO BID [facility] Last Admin: 09/12/22 19:09 Dose: Not Given Enoxaparin Sodium (Enoxaparin 40 Mg/0.4 Ml Syringe) 40 mg SQ DAILY [facility] Last Admin: 09/12/22 08:45 Dose: 40 mg Glucose (Dextrose 31 Gm Oral.Susp) 15 gm PO PRN PRN PRN Reason: Hypoglycemia Hydralazine HCl (Hydralazine 20 Mg/Ml Vial) 0 mg IV Q2HP PRN PRN Reason: Hypertension Last Admin: 09/11/22 09:09 Dose: 20 mg Ibuprofen (Ibuprofen 600 Mg Tablet) 600 mg PO QIDP PRN; Protocol PRN Reason: Per Pain Protocol/Fever > 101 Last Admin: 09/09/22 15:20 Dose: 600 mg Insulin Human Lispro (Insulin Lispro 1 Unit/0.01 Ml Unit) 0 unit SQ ACHS [facility]; Protocol Last Admin: 09/12/22 21:55 Dose: Not Given Labetalol HCl (Labetalol 5 Mg/Ml Ml) 0 mg IV Q2HP PRN PRN Reason: Hypertension Lisinopril (Lisinopril 10 Mg Tablet) 20 mg PO DAILY [facility] Last Admin: 09/12/22 08:45 Dose: 20 mg Lorazepam (Lorazepam 2 Mg/Ml Vial) 1 mg IV Q4-6HP PRN PRN Reason: ANXIETY/SEDATION Last Admin: 09/12/22 00:14 Dose: 1 mg Metoprolol Succinate (Metoprolol Succinate 25 Mg Tab.Xl.24h) 25 mg PO DAILY [facility] Last Admin: 09/12/22 08:45 Dose: 25 mg Olanzapine (Olanzapine 5 Mg Tablet) 5 mg PO Q8HP PRN PRN Reason: Agitation Ondansetron HCl (Ondansetron 4 Mg/2 Ml Vial) 4 mg IV Q6HP PRN PRN Reason: Nausea And Vomiting Pantoprazole Sodium (Pantoprazole 40 Mg Vial) 40 mg IV QAMAC [facility] Last Admin: 09/12/22 08:47 Dose: 40 mg Senna (Sennosides 1 Tablet) 2 tab PO HS [facility] Last Admin: 09/12/22 19:09 Dose: Not Given Sodium Chloride (0.9 % Sodium Chloride 10 Ml Syringe) 10 ml IV Q8 [facility] Last Admin: 09/13/22 05:12 Dose: 10 ml ABG Interpretation ABG results: 09/05/22 09/05/22 06:12 07:36 ABG Methemoglobin 0.1 L 0.3 L VBG pH 7.24 L 7.24 L VBG pCO2 36.2 L 49.0 VBG pO2 78.8 H 47.4 H VBG HCO3 15.2 L 20.6 L VBG Total CO2 16.3 L 22.1 L VBG O2 Saturation 85.3 H 74.4 H VBG Base Excess -11 L -7 L A/P Narrative A/P Narrative: Assessment and Plans: *Acute hypoxic respiratory failure: 2/2 covid pna and probably volume overload. Slow progress -BiPAP>Vapotherm>>now on 1.5L NC -prn diuresis *CoVID pneumonia w/ARDS: -Proning as tolerated by patient, oob to chair -Dexamethasone finish today/Remdisivir finished, s/p Actemra -trend inflammaotry markers, improving -DuoNEB prn, Pulmicort -d/c Abx -f/u cxr with diffuse b/l infiltrates but with improvement *Acute delirium: resolved -DDx: high dose steriod Dexamethasone vs acute intracranial pathologies such as CVA vs likely CoVID pneumonia -CT head w/o: no acute intracranial abnormalities -Treat CoVID pneumonia, see #1 *Sepsis: 2/2 above *T2DM: -HgA1c 6.6, -SSI, *HTN / HLD: BP elevated, prn IV. improving -Resume Toprol XL(increased), Resume Lisinopril (increased) , statin *Depression: -Holding Wellbutrin due to worsening mentation *Hypokalemia/HYpernatremia: resolved -replace prn, f/u chemistry and trend, f/u na *Generalized weakness/deconditioning: PT/OT *Obesity: BMI 33 *ppx: Lovenox / ppi Code status: Full Prognosis: Guarded Time Spent With Patient Time: Total time spent is greater than 50% in coordination of care (as documented) at patient's floor/unit and/or counseling patient: Subsequent: Total time with patient: 35 - 49 minutes QUALITY Stroke Symptom Onset Unknown: No VTE Deep Vein Thrombosis/Pulmonary Embolism Present on Admission: No
[2022-09-13] MEDS ORDERED: diphenhydrAMINE 25 MG CAPSULE PO PRN (07:34)
[2022-09-13] MEDS: INSULIN LISPRO 1 UNIT/0.01 ML UNIT SQ SCH ×4 (08:08→21:42)
[2022-09-13] MEDS: ENOXAPARIN 40 MG/0.4 ML SYRINGE SQ SCH (09:20)
[2022-09-13] MEDS: DEXAMETHASONE 10 MG/ML VIAL IV SCH (09:20)
[2022-09-13] MEDS: METOPROLOL SUCCINATE 25 MG TAB.XL.24H PO SCH (09:20)
[2022-09-13] MEDS: LISINOPRIL 10 MG TABLET PO SCH (09:20)
[2022-09-13] MEDS: DOCUSATE SODIUM 100 MG CAPSULE PO SCH ×2 (09:38→21:42)
[2022-09-13] MEDS: CLOTRIMAZOLE CRM 1% 1 DOSE TUBE TOPICAL SCH ×2 (09:38→21:44)
[2022-09-13] MEDS: PANTOPRAZOLE 40 MG VIAL IV SCH (09:39)
[2022-09-13] MEDS: IPRATROPIUM/ALBUTEROL 3 ML AMPUL.NEB NEB SCH ×2 (10:14→22:00)
[2022-09-13] MEDS: BUDESONIDE 0.5 MG/2 ML AMPUL.NEB NEB SCH ×2 (10:34→22:00)
[2022-09-13] MEDS: CARBOXYMETHYLCELLULOSE SODIUM 1 EACH DROPER.GEL OU SCH ×2 (11:38→21:44)
[2022-09-13] MEDS ORDERED: MELATONIN 3 MG TABLET PO SCH (21:00)
[2022-09-13] MEDS ORDERED: MELATONIN 3 MG TABLET PO ONE (21:41)
[2022-09-13] MEDS: SENNOSIDES 1 TABLET PO SCH (21:43)
[2022-09-14] MEDS: 0.9 % SODIUM CHLORIDE 10 ML SYRINGE IV SCH (05:28)
[2022-09-14] MEDS ORDERED: PANTOPRAZOLE 40 MG TABLET PO SCH (07:30)
[2022-09-14] MEDS: INSULIN LISPRO 1 UNIT/0.01 ML UNIT SQ SCH (08:16)
[2022-09-14] MEDS: DOCUSATE SODIUM 100 MG CAPSULE PO SCH (08:16)
[2022-09-14] MEDS: CLOTRIMAZOLE CRM 1% 1 DOSE TUBE TOPICAL SCH (08:16)
[2022-09-14] MEDS: METOPROLOL SUCCINATE 25 MG TAB.XL.24H PO SCH (08:24)
[2022-09-14] MEDS: LISINOPRIL 10 MG TABLET PO SCH (08:24)
[2022-09-14] MEDS: CARBOXYMETHYLCELLULOSE SODIUM 1 EACH DROPER.GEL OU SCH (08:26)
[2022-09-14] MEDS: ENOXAPARIN 40 MG/0.4 ML SYRINGE SQ SCH (08:26)
[2022-09-14] MEDS: BUDESONIDE 0.5 MG/2 ML AMPUL.NEB NEB SCH (09:18)
[2022-09-14] MEDS: IPRATROPIUM/ALBUTEROL 3 ML AMPUL.NEB NEB SCH (09:18)
--- NOTE | 2022-09-14 10:13 | Discharge Summary ---
Discharge Provider Provider IMPORTANT FOLLOW-UP INFORMATION FOR PCP: 1. Follow up home O2 eval 2. Follow up with pcp 3. Home health services Patient information: Note initiated : 09/14/22 at 10:12 am Service Date, if different from initiated Date: [] Patient: Felicia Grewal 77 y/o F admitted on 09/03/22 for Shortness of breath. Chief Complaint: [SOB] Date of admission: 09/03/22 02:37 Discharge date: 09/14/22 Primary care physician: Gloria Dixon Consults: 09/03/22 Consult to Physician [CONS] Stat Comment: Consulting Provider: Doreen Nuñez Reason For Exam: Physician to Consult Attending physician on discharge: Doreen Nuñez COURSE Hospital Course Hospital course: Interval history: 09/04: Patient have worsening mentations with agitations and alert and oriented x1 to person only since this morning, new finding. Her oxygen requirement also increased from 1 L/min to 5 L/min via oxygen mask. Tachycardia and tachypnea also noted. Subjective not obtained due to clinical situations. Will order CT of the head without contrast to rule out acute intracranial pathologies. Will order CT chest angiogram to rule out pulmonary embolism and any other acute intrathoracic pathologies to account for the worsening of her respiratory status. Continue supplemental oxygen therapy meanwhile. Continue dexamethasone and remdesivir for treatment of COVID-pneumonia. Continue physical therapy and Occupational Therapy evaluation and treatment for placement planning. 09/05: CT chest angiogram: negative for pulmonary embolism, worsening bilateral pneumonia. Patient deteriorate overnight, increasing oxygen requirement, and became very confused and not oriented. Placed on nonrebreather, then BiPAP. Transfer to inpatient ICU. Repeat CXR Repeat VBG Blood cultures X2, then Vancomycin/Zosyn Saline lock, Lasix 40mg IV once Ativan 1mg IV q6h PRN anxiety/agitation Continue Dexamethasone/Remdesivir Will touch base with family regarding prognosis/goal of care 09/06: Afebrile overnight. MRSA screening negative. All cultures no growth to date. Patient still on BiPAP 18/8 cmH2O RR12 FiO2 60%. Urine output ~30cc/hr/ Improving degree of shortness of breath. Denies cough or wheezing. Denies fever, chills, or sweating. Stays in ICU. d/c Vancomycin, continue Zosyn. Continue Dexamethasone/Remdesivir Continue to wean down/off BiPAP as tolerating. Heated high flow oxygen when feeding patient. Physical and occupational therapies evaluation and treatment. 09/07: Afebrile overnight. All cultures no growth to date. Patient tolerated proning overnight. Currently on high flow oxygen 35L/min FiO2 100%. Improving degree of shortness of breath. Poor appetite. Poor energy level. Denies fever, chills, or sweating. Stays in ICU. Proning as tolerated Continue Zosyn Continue Dexamethasone/Remdesivir Continue to wean oxygen therapy as tolerating Physical and occupational therapies evaluation and treatment 09/08: Afebrile overnight. All cultures no growth to date. Patient became BiPAP depending again, currently at 18/8 cmH2O, RR 12, FiO2 60%. Subjective not obtained due to clinical situations. Stays in ICU. Proning as tolerated Continue Zosyn Continue Dexamethasone/Remdesivir BiPAP, wean down/ change to high flow oxygen 09/09 Patient thinks she is feeling a little bit better today. She continues to have productive cough. Shortness of breath slowly improving. She is still requiring the BiPAP. FiO2 slowly being titrated down. Leukocytosis improved. Elevated proBNP. CRP slightly worse. 09/10 Patient states she is breathing better however she still on 65% FiO2. While I was in there and dropped her down to 55% we will see how she does from there. She had put out good urine output yesterday with diuresis. Did get orthostatic when getting up at bedside today. We will hold off on any further diuresis for now. CRP slowly improving. Cough present but improving. Shortness of breath slowly improving. 09/11 Patient still requiring Vapotherm but gradually weaning down FiO2 and flow rate. Patient has occasional cough. Shortness of breath slowly improving but waxes and wanes overall. BMP improved after diuresis. Sodium is a bit elevated today. We will give hydrochlorothiazide today and hold other diuretics. Follow-up CRP in the morning. Patient seems to be making slow gradual improvement. 09/12 Able to transition oxygen to the wall. Patient's shortness of breath continues to improve. Mild cough. Sodium improved today. Inflammatory markers improving. 09/13 Patient continues to improve on 3 L nasal cannula this morning we will decrease to 1.5 L since yesterday's. Occasional cough. Shortness of breath improved and significant at rest. No overnight events or new complaints. Discharge diagnosis: Acute hypoxemic respiratory failure, COVID-pneumonia with ARDS Time Spent with Patient Time attestation: Total time spent providing and/or coordinating discharge services: Time spent: Greater than 30 minutes EXAM Constitutional Vitals: Temp Pulse Resp BP Pulse Ox O2 Del Method O2 Flow Rate 98.0 F 76 17 151/59 91 Room Air 90 09/14/22 07:39 09/14/22 09:19 09/14/22 09:19 09/14/22 07:39 09/14/22 09:19 09/14/22 09:19 09/14/22 08:00 General appearance: average body habitus Head Head exam: Present atraumatic, normal inspection and normocephalic Eye Eye exam: Present EOMI, normal appearance and PERRL; Absent conjunctival injection ENT ENT exam: Present normal exam; Absent mucous membranes dry Neck Neck exam: Present full ROM; Absent lymphadenopathy Respiratory Respiratory exam: Present normal respiratory exam and CTAB; Absent decreased breath sounds, respiratory distress or wheezes Cardiovascular Cardiovascular exam: Present normal rate and rhythm and RRR; Absent JVD GI/Abdominal GI/Abdominal exam: Present normal bowel sounds and soft; Absent diminished bowel sounds, distended, guarding, mass, rebound or tenderness Neurological Exam Neurological exam: Present alert, CN II-XII intact and oriented X3 Psychiatric Psychiatric exam: Present normal affect and normal mood Skin Skin exam: Present intact and warm; Absent erythema, pallor, petechiae or rash Discharge Plan Patient/Caregiver Discharge Instructions Activity: increase activity as tolerated Instructions: Using Oxygen at Home (GEN), Pneumonia (GEN) Prescriptions: New albuterol sulfate 90 mcg/actuation aero powdr breath act w/sensor 90 mcg inhalation Q6H PRN (Reason: shortness of breath or wheezing) Qty: 1 0RF Continued oxybutynin chloride 5 mg tablet 5 mg PO QDAY carboxymethylcellulose sodium 0.5 % dropperette 1 drp ophthalmic (eye) BID calcium carbonate [Calcium 600] 600 mg calcium (1,500 mg) tablet 600 mg PO QDAY clotrimazole 1 % cream 1 applic topical BID colchicine 0.6 mg capsule 0.6 mg PO QDAY terbinafine HCl 250 mg tablet 250 mg PO QDAY atorvastatin 40 MG tablet 40 mg PO ONCE metformin [Glucophage] 500 MG tablet 500 mg PO BID lisinopril [Zestril] 10 MG tablet 10 mg PO DAILY vitamin B complex [Ultra B-100 Complex] 1 EACH tablet 1 ea PO DAILY metoprolol succinate 25 MG tablet extended release 24 hr 12.5 mg PO DAILY docusate sodium [Stool Softener] 250 MG capsule 500 mg PO DAILY bupropion HCl [Wellbutrin XL] 150 MG tablet extended release 24 hr 150 mg PO DAILY cholecalciferol (vitamin D3) [Vitamin D3] 2,000 UNIT capsule 2,000 unit PO DAILY magnesium oxide 400 MG tablet 400 mg PO DAILY Follow Up Plan Follow up with: Jami May PA-C [Physician Staff Internist Office Based Only-Certified] - Patient Disposition: Home Health Service Prognosis: Fair Rehab Potential: Good I certify that the patient requires SNF services: No Overall status at discharge: patient is progressing back to baseline Discharge Orders: Discharge Order (Routine); Ordered 09/14/22 Ordered By: Doreen LOPEZ VTE Deep Vein Thrombosis/Pulmonary Embolism Present on Admission: No
== END 2022-09-14 11:20 | disposition home health service (06) | DRG 871 ==
LOC: ED 22:21 → ICU 09-03 02:37
PROVIDERS: ADMIT Student in an Organized Health Care Education/Training Program; ATTEND Student in an Organized Health Care Education/Training Program